=== PATIENT | female | born 1955 | race Caucasian/White ===

== ENCOUNTER 2017-06-22 08:28 | Emergency (ER) | payer OTHER, MEDICAID, SELFPAY | END 2017-06-22 10:15 | disposition home or self-care (01) | PROVIDERS: Emergency Provider Emergency Medicine; PCP Family Medicine; Visit Provider Emergency Medicine | DX: M25.512 Pain in left shoulder (principal) | CPT/HCPCS: 73030; 99283 ==

== ENCOUNTER → 2017-08-08 12:22 | Outpatient (CLI) | payer OTHER, MEDICAID, SELFPAY ==
--- NOTE | 2017-08-08 | DI.RAD.S_ITS ---
PROCEDURE: XR KNEE LT 3V INDICATIONS: 62 year-old female with bilateral knee weakness and pain after fall. TECHNIQUE: 3 views of the knee were acquired. COMPARISON: [facility], CR, XR KNEE ARTHRITIC SERIES LT, 07/30/2017, 15:10. FINDINGS: Bones: No fractures or dislocations. There is mild tricompartmental knee joint degeneration, with peripheral osteophyte formation. There is nonaggressive periosteal reaction along the distal femoral shaft. No suspicious bony lesions. Soft tissues: No joint effusion. No suspicious soft tissue calcifications. IMPRESSION: 1. Mild left knee joint degeneration. 2. Patchy distal femoral shaft periosteal reaction may reflect sequelae of remote trauma. Hypertrophic osteoarthropathy may also be in the differential diagnosis. Dictated by: Christian Moody M.D. on 08/08/2017 at 13:02 Approved by: Christian Moody M.D. on 08/08/2017 at 13:04
--- NOTE | 2017-08-08 | DI.RAD.S_ITS ---
PROCEDURE: XR KNEE RT 3V INDICATIONS: 62 year-old female with right knee pain. TECHNIQUE: 3 views of the knee were acquired. COMPARISON: [facility], , KNEE 3V RIGHT, 03/12/2014, 17:26. [facility], , KNEE 3V RIGHT, 08/15/2010, 15:30. FINDINGS: Bones: No fractures or dislocations. There is tricompartmental knee joint degeneration. No suspicious bony lesions. Soft tissues: No joint effusion. No suspicious soft tissue calcifications. IMPRESSION: Mild right knee joint degeneration, without acute bony injuries. Dictated by: Christian Moody M.D. on 08/08/2017 at 13:01 Approved by: Christian Moody M.D. on 08/08/2017 at 13:02
== END ==
PROVIDERS: PCP Family Medicine; Visit Provider Family Medicine
DX: M17.0 Bilateral primary osteoarthritis of knee (principal)
CPT/HCPCS: 73562

== ENCOUNTER → 2017-12-16 08:33 | Outpatient (CLI) | payer OTHER, MEDICAID, SELFPAY ==
--- NOTE | 2017-12-16 08:34 | DI.US.S_ITS ---
PROCEDURE: US PELVIC COMPLETE INDICATIONS: POST MENOPAUSAL BLEEDING TECHNIQUE: Real-time scanning was performed of the pelvic organs, with image documentation. Additional endovaginal scanning was necessary due to incomplete visualization of the adnexal and endometrial structures by transabdominal scanning. COMPARISON: None. FINDINGS: Transabdominal scanning: Limited scanning through the kidneys shows no hydronephrosis. No pathologic free abdominal or pelvic fluid. Endovaginal scanning: Uterus: Uterus is normal in size at 8.0 x 4.2 x 5.7 cm. The endometrium measures 10 mm in combined thickness. Multicystic change and endometrial complex noted. Ovaries: Ovaries not visualized. No adnexal masses seen. IMPRESSION: Abnormal appearance of the endometrial complex which is thickened and multicystic. Endometrial carcinoma cannot be excluded and endometrial biopsy is recommended. Dictated by: Jaren LANE Interpreted: Madeline Coronado MD on 12/16/2017 at 12:01 Approved by: Madeline Coronado MD, PhD on 12/16/2017 at 12:04
== END ==
PROVIDERS: PCP Family Medicine; Visit Provider Obstetrics & Gynecology
DX: N95.0 Postmenopausal bleeding (principal); R93.89 Abnormal findings on diagnostic imaging of other specified body structures
CPT/HCPCS: 76830; 76856

== ENCOUNTER 2018-01-20 08:33 | Day surgery (SDC) | payer OTHER, MEDICAID, SELFPAY ==
[2018-01-13 08:21] VITALS: BMI 20.5
--- NOTE | 2018-01-20 | PATH_ITS ---
[facility] Accession Number: [id number] . 01 Material submitted: . ENDOMETRIAL CURETTINGS . 02 Diagnosis: Endometrium, Biopsy: Disordered proliferative endometrium with features suggestive of glandular and stromal breakdown. No evidence of neoplasia or hyperplasia. L/01/21/2018 . 02 Electronically signed: . Corrina Rodrigues MD, Pathologist NPI- [id number] . 01 Gross description: . Received in one formalin-filled container labeled with the patient's name and labeled endometrial curettings, is approximately a 0.75 cc aggregate of tissue, mucoid material, and blood, which is filtered, wrapped, and entirely submitted in one cassette. ([id number]) /FRR . 02 Pathologist provided ICD-10: N92.6 . 02 CPT . 934987 Performed at: 01 [facility] [address] [facility]– [place], [place], [place] [id number] MD Erick Schofield MD Phone: [phone] Performed at: [facility] [address] [place], [place] [id number] MD Corrina Rodrigues MD Phone: [phone]
[2018-01-20 08:57] VITALS: BP 157/89; PULSE 103; RESP 17; TEMP 36.8; O2SAT 97; BMI 20.5
[2018-01-20] MEDS: LACTATED RINGERS 1,000 ML 100 ML IV (09:15)
--- NOTE | 2018-01-20 10:12 | PM.PREOP ---
Pre-operative Note Interval Note Pre-op Check: Yes History & Physical exam performed today by Physician Changes: No
--- NOTE | 2018-01-20 10:13 | PM.HP.1 ---
History of Present Illness Date Patient Seen: 01/20/18 Time Patient Seen: 10:13 Chief complaint: D&C hysteroscopy [id number] Narrative: Patient is a 62-year-old 4 para 1 who presents for a D&C hysteroscopy due to postmenopausal bleeding and cervical stenosis Attempted endometrial biopsy in the office x2 but was unsuccessful Patient History Medical History ADHD (Acute) Asthma (Acute) Bipolar 1 disorder (Acute) Cervical stenosis (uterine cervix) (Acute) DJD (degenerative joint disease) (Acute) GERD (gastroesophageal reflux disease) (Acute) Hip dysplasia (Acute) History of endometrial biopsy (Acute) Postmenopausal bleeding (Acute) Surgery, elective (Acute) Surgical History Hx of repair of left rotator cuff (Acute) Family & Social History Social History: household members family Tobacco & Substance use: Smoking Status Never smoker alcohol intake current Substance Use Type does not use Meds Home Medications Medication Instructions Recorded Confirmed Type albuterol sulfate 3 ml INH Q6HP #0 08/15/10 01/20/18 History dextroamphetamine-amphetamine 20 mg PO BID #0 08/15/10 01/20/18 History [Adderall] lamotrigine [Lamictal] 200 mg PO QDAY #0 08/15/10 01/20/18 History lansoprazole [Prevacid 24Hr] 15 mg PO DIRECTED #0 08/15/10 01/20/18 History zolpidem [Ambien] 10 mg PO HS #0 05/19/11 01/20/18 History hydrocodone-acetaminophen [[place]] 1 tab PO Q6HP PRN #10 tab 06/22/17 01/20/18 Rx ibuprofen 200 mg PO Q6HP PRN #0 06/22/17 01/20/18 History Allergies Allergy/AdvReac Type Severity Reaction Status Date / Time No Known Drug Allergies Allergy Verified 12/20/17 09:57 Exam Vital Signs (past 8 hours): - 01/20/18 08:57 Temperature 98.2 F Pulse Rate 103 H Respiratory Rate 17 Blood Pressure 157/89 H Pulse Oximetry 97 Oxygen Delivery Method Room Air Narrative Exam Narrative: HEENT: No thyromegaly, no anterior cervical or supraclavicular lymphadenopathy. Lungs:Clear to auscultation bilaterally, no wheezes. Cardiovascular: Regular rate and rhythm, no murmurs, rubs, or gallops. Abdomen: No scars. No hepatosplenomegaly. No masses palpable. External genitalia: Normal Vagina: Normal Cervix: Normal Bimanual exam: 6 Week size uterus. Mobile. Rectal: No masses. Assessment & Plan (1) History of postmenopausal bleeding: Current visit: Yes Status: Acute (2) Cervical stenosis (uterine cervix): Current visit: Yes Status: Acute Plan: Assessment/Plan Narrative: Assessment: 62-year-old 4 para 1 with postmenopausal bleeding and cervical stenosis Plan: D&C hysteroscopy The risks, benefits, and alternatives to the procedure were explained to the patient. The risks including bleeding, infection, and uterine perforation. She understands these risks and agrees to proceed. Consent form was signed.
--- NOTE | 2018-01-20 10:18 | P.HP_ITS ---
History of Present Illness Date Patient Seen: 01/20/18 Time Patient Seen: 10:13 Chief complaint: D&C hysteroscopy [id number] Narrative: Patient is a 62-year-old 4 para 1 who presents for a D&C hysteroscopy due to postmenopausal bleeding and cervical stenosis Attempted endometrial biopsy in the office x2 but was unsuccessful Patient History Medical History ADHD (Acute) Asthma (Acute) Bipolar 1 disorder (Acute) Cervical stenosis (uterine cervix) (Acute) DJD (degenerative joint disease) (Acute) GERD (gastroesophageal reflux disease) (Acute) Hip dysplasia (Acute) History of endometrial biopsy (Acute) Postmenopausal bleeding (Acute) Surgery, elective (Acute) Surgical History Hx of repair of left rotator cuff (Acute) Family & Social History Social History: household members family Tobacco & Substance use: Smoking Status Never smoker alcohol intake current Substance Use Type does not use Meds Home Medications Medication Instructions Recorded Confirmed Type albuterol sulfate 3 ml INH Q6HP #0 08/15/10 01/20/18 History dextroamphetamine-amphetamine 20 mg PO BID #0 08/15/10 01/20/18 History [Adderall] lamotrigine [Lamictal] 200 mg PO QDAY #0 08/15/10 01/20/18 History lansoprazole [Prevacid 24Hr] 15 mg PO DIRECTED #0 08/15/10 01/20/18 History zolpidem [Ambien] 10 mg PO HS #0 05/19/11 01/20/18 History hydrocodone-acetaminophen [[place]] 1 tab PO Q6HP PRN #10 tab 06/22/17 01/20/18 Rx ibuprofen 200 mg PO Q6HP PRN #0 06/22/17 01/20/18 History Allergies Allergy/AdvReac Type Severity Reaction Status Date / Time No Known Drug Allergies Allergy Verified 12/20/17 09:57 Exam Vital Signs (past 8 hours): - 01/20/18 08:57 Temperature 98.2 F Pulse Rate 103 H Respiratory Rate 17 Blood Pressure 157/89 H Pulse Oximetry 97 Oxygen Delivery Method Room Air Narrative Exam Narrative: HEENT: No thyromegaly, no anterior cervical or supraclavicular lymphadenopathy. Lungs:Clear to auscultation bilaterally, no wheezes. Cardiovascular: Regular rate and rhythm, no murmurs, rubs, or gallops. Abdomen: No scars. No hepatosplenomegaly. No masses palpable. External genitalia: Normal Vagina: Normal Cervix: Normal Bimanual exam: 6 Week size uterus. Mobile. Rectal: No masses. Assessment & Plan (1) History of postmenopausal bleeding: Current visit: Yes Status: Acute (2) Cervical stenosis (uterine cervix): Current visit: Yes Status: Acute Plan: Assessment/Plan Narrative: Assessment: 62-year-old 4 para 1 with postmenopausal bleeding and cervical stenosis Plan: D&C hysteroscopy The risks, benefits, and alternatives to the procedure were explained to the patient. The risks including bleeding, infection, and uterine perforation. She understands these risks and agrees to proceed. Consent form was signed.
[2018-01-20 10:50] VITALS: BP 120/70; PULSE 83; RESP 17; TEMP 36.6; O2SAT 97
[2018-01-20 10:55] VITALS: BP 130/73; PULSE 85; RESP 17; O2SAT 98
--- NOTE | 2018-01-20 10:56 | SUR.OPER ---
Lithotomy on padded OR bed, head on pillow, arms secured on padded arm boards at <90 degrees abduction. Legs secured in padded yellow fins stirrups.
[2018-01-20 11:00] VITALS: BP 142/71; PULSE 89; RESP 17; O2SAT 99
[2018-01-20 11:15] VITALS: BP 145/66; PULSE 78; RESP 99
[2018-01-20] MEDS: HYDROCODONE/ACET 5/325 TABLET 1 TAB PO (11:15)
[2018-01-20 11:30] VITALS: BP 133/80; PULSE 77; RESP 16; TEMP 36.6; O2SAT 97
--- NOTE | 2018-01-21 12:03 | PM.GYNOP.1 ---
Operative Date/Time/Diagnoses Date of procedure: 01/20/18 Time of procedure: 11:45 Pre-op diagnosis: Postmenopausal bleeding Cervical stenosis Post-op diagnosis: same Procedure: Procedures Operation Date: 01/20/18 09:45 Actual Procedures Side Surgeon p Hysteroscopy D&C Elizabeth Rosas MD Indications: Postmenopausal bleeding Cervical stenosis Surgeon: Elizabeth Rosas Anesthesia Type: General (LMA) Operative Notes Findings: 6 week size anteverted uterus Cervical stenosis Thickened posterior endometrial lining Closure Type: not applicable Specimen(s): endometrial curettings Applied: catheter (In and out) Estimated blood loss (mL): 3 Blood products transfused: none Procedure in detail: After informed consent was obtained, the patient was taken to the operating room where she was placed in the dorsal supine position. After adequate LMA general anesthesia was achieved, she was placed in the dorsal lithotomy position, and prepped and draped in the usual sterile fashion. A time-out was performed. A bivalve speculum was placed into the vagina and the anterior lip of the cervix grasped with a single-tooth tenaculum. There was cervical stenosis. Using the small gold handled dilators, the cervix was dilated up to the # 9 Hegar dilator. The hysteroscope passed easily into the endometrial cavity. Both fallopian tube ostia were observed. There was a small false tract but the endometrial canal was easily found. There was thickened posterior lining. The hysteroscope was removed. Sharp curettage was performed yielding a large amount of endometrial curettings. The instruments were removed from the uterus. The single-tooth tenaculum was removed from the anterior lip of the cervix. The bivalve speculum was removed from the vagina. There was minimal bleeding from the cervical os. Sponge, lap, and instrument counts were correct x2. The patient tolerated the procedure well, and was taken to PACU in stable condition. Complications: none Post-operative Condition: stable Disposition: PACU Plan for aftercare: Home after recovery
== END 2018-01-20 11:36 | disposition home or self-care (01) ==
PROVIDERS: PCP Family Medicine; Visit Provider Obstetrics & Gynecology
PROC: 0UDB8ZZ Extraction of Endometrium, Via Natural or Artificial Opening Endoscopic (ICD-10-PCS; CPT 58558; principal; 2018-01-20 09:45)
DX: N95.0 Postmenopausal bleeding (principal); N88.2 Stricture and stenosis of cervix uteri; J45.909 Unspecified asthma, uncomplicated
CPT/HCPCS: 58558; J1100; J2704

== ENCOUNTER 2018-05-05 06:37 | Day surgery (SDC) | payer OTHER, MEDICAID, SELFPAY ==
[2018-05-02 12:13] VITALS: BMI 20.2
[2018-05-05] VITALS (20 sets, daily range): BP systolic 103–146; BP diastolic 60–91; PULSE 57–93; RESP 6–20; TEMP 36.7–37.4; O2SAT 93–100; BMI 19.2
--- NOTE | 2018-05-05 | PATH_ITS ---
[facility] Accession Number: [id number] . 01 Material submitted: . UTERUS AND BILATERAL FALLOPIAN TUBES/OVARIES . 02 Diagnosis: Uterus With Bilateral Fallopian Tubes And Ovaries, Supracervical Hysterectomy And Bilateral Salpingo-oophorectomy: Weakly proliferative endometrium with no diagnostic abnormality. Adenomyosis. Bilateral ovaries with no diagnostic abnormality. Bilateral fallopian tubes with simple benign paratubal cysts. Negative for malignancy. MRV/05/07/2018 . 02 Electronically signed: . Porfirio Gillis MD, PhD, Pathologist NPI- [id number] . 01 Gross description: . Received in formalin, labeled uterus, bilateral fallopian tubes + ovaries, is a morcellated uterus (88 grams, 14.3 x 9.2 x 2.7 cm in aggregate) and two ovaries (ovary #1- 1.3 x 0.8 x 0.5 cm; ovary #2- 1.8 x 0.8 x 0.6 cm) with attached fimbriated fallopian tubes (tube #1: length-6.3 cm, diameter-0.3 cm; tube #2: length-6.5 cm, diameter-0.4 cm). The cervix is absent. The specimen cannot be oriented, and the endometrium and myometrium cannot be grossly measured. The uterine parenchyma is romano with a pale whorled appearance. The serosa is pale romano smooth and shiny. The ovaries have romano-yellow dull flat serosa and romano-white parenchyma with corpus albicans identified. The fallopian tubes contain a filshie clip and have romano smooth and shiny serosa with multiple paratubal cysts (0.1 cm-0.9 cm) containing clear colorless fluid. The lumens are romano and unremarkable. Section code: (A1-A4) uterine parenchyma, residential sales representative; (A5) ovary #1, residential sales representative serial section; (A6) ovary #2, residential sales representative serial section; (A7) fallopian tube #1, residential sales representative serial section; (A8) fimbria #1, bivalved, entirely submitted; (A9) fallopian tube #2, residential sales representative serial section; (A10) fimbria #2, bivalved, entirely submitted. ([id number]) /AMH . 02 Pathologist provided ICD-10: N95.0, N80.0 . 02 CPT . 289210 Performed at: 01 [facility] [address] [facility], [place], [place] [id number] MD Erick Schofield MD Phone: [phone] Performed at: [facility] [address] [place], [place] [id number] MD Corrina Rodrigues MD Phone: [phone]
[2018-05-05] MEDS: LACTATED RINGERS 1,000 ML 100 ML IV ×4 (07:11→20:37)
[2018-05-05] MEDS: CEFAZOLIN 2 GM/100 ML FROZ.PIGGY IV (07:55)
--- NOTE | 2018-05-05 08:41 | SUR.OPER ---
Lithotomy on padded OR bed. Mize Pad Positioner under torso. Head on pillow, arms padded and tucked at sides. Legs secured in padded yellow fins stirrups.
[2018-05-05] MEDS: BUPIVACAINE 0.5% W/ EPI (PF) VIAL 30 ML INJ (08:49)
[2018-05-05] MEDS: ROPIVACAINE 0.2% PF 2 MG/ML 10ML AMP 20 ML INJ (08:49)
[2018-05-05] MEDS: ACETAMINOPHEN IV 1,000 MG/100 ML VIAL 400 MG IV (09:00)
--- NOTE | 2018-05-05 10:08 | PC.NURSE ---
Day shift: Pt not on AC unit at this time.
--- NOTE | 2018-05-05 10:15 | PM.PREOP ---
Pre-operative Note Interval Note History & Physical reviewed/Exam performed by Physician: Yes Changes to H&P: No
[2018-05-05] MEDS: fentaNYL 100 MCG/2 ML INJ 25 MCG IV (10:20)
--- NOTE | 2018-05-05 10:21 | P.OP_ITS ---
Operative Date/Time/Diagnoses Date of procedure: 05/05/18 Time of procedure: 10:21 Pre-op diagnosis: Postmenopausal bleeding Thickened endometrial lining on ultrasound Cervical stenosis Family history of endometrial cancer Post-op diagnosis: same Procedure: Procedures Operation Date: 05/05/18 07:45 Actual Procedures Side Surgeon p Laparoscopic Supracervical Hysterectomy w/Bilat S&O Elizabeth Rosas MD Indications: Postmenopausal bleeding Thickened endometrial lining on ultrasound Cervical stenosis Family history of endometrial cancer Surgeon: Elizabeth Rosas Supervisor [employer] Processing: Jonas Samayoa Anesthesia Type: General Operative Notes Findings: 10 week size uterus Normal tubes and ovaries Accessory lobe of the liver Omental to left anterior abdominal wall adhesions Closure Type: primary Specimen(s): left tube & ovary, right tube & ovary and uterus Applied: catheter (Removed at the end of the case) Estimated blood loss (mL): 100 Blood products transfused: none Procedure in detail: The patient was taken to the operating room where she was placed in the dorsal supine position. After adequate general endotracheal anesthesia was achieved, she was placed in the dorsal lithotomy position, and prepped and draped in the usual sterile fashion. A timeout was performed. A bivalve speculum was placed into the vagina and the anterior lip of the cervix grasped with a single-tooth tenaculum. The cervical os was sequentially dilated until the ZUMI uterine manipulator could pass easily into the endometrial cavity. The single-tooth tenaculum was removed from the anterior lip of the cervix, and the bivalve speculum was removed from the vagina. Attention was then turned to the abdomen where 6 mL of half percent Marcaine with epinephrine were injected in the umbilical fold. A 5 mm incision was made. The Verhees needle was placed into the peritoneal cavity, and its placement confirmed by aspiration and drop test. The Verhees needle was removed. A 5 mm trocar was placed without difficulty. 2 other incisions were made midway between the pubic symphysis and umbilicus after 5 mL of half percent Marcaine with epinephrine were injected. These were 5 mm incisions. Two 5 mm trochars were placed under direct visualization. There were some omental adhesions on the left anterior abdominal wall. The right tube and ovary were grasped with an atraumatic grasper. Using the plasma kinetic with settings of 40 W the infundibulopelvic ligament was cauterized and cut. The cornua of the uterus was then grasped with an atraumatic grasper. The utero-ovarian ligaments were cauterized and cut. The round ligament and broad ligament was cauterized and cut with plasma kinetic. Hemostasis was achieved. The bladder flap was created using the plasma kinetic with cautery and cut senior care across. The uterine arteries on the right side were extensively cauterized with plasma kinetic. All of this was repeated on the left side. The remainder of the bladder flap was created using the plasma kinetic, and the bladder taken down off the lower uterine segment and cervix. Using the Endoloop, the cervix was amputated from the uterus 2 cm above the uterosacral ligaments, after the ZUMI uterine manipulator was removed from the uterus. There was a small amount of bleeding noted from the posterior edge of the cervix, and this was cauterized for hemostasis. The endocervical canal was extensively cauterized. A sponge stick was placed into the vagina. 6 mL of half percent Marcaine with epinephrine were injected above the pubic symphysis. A 12 mm trocar was placed. And then removed. The fascial incision was extended bluntly with a Tiffany. An Endobag was placed through the suprapubic incision and the uterus and tubes and ovaries were placed into the Endobag. The Oleksandr was placed into the endobag. The uterus, tubes, and ovaries were hand morcellated in approximately 10 pieces. The Endobag and Oleksandr were removed from the peritoneal cavity. The pelvis was copiously irrigated with warm normal saline. No bleeding was noted. The instruments were removed from the abdomen. The CO2 was allowed to escape. The suprapubic incision was closed on the fascia with 0 Vicryl. The suprapubic subcutaneous layer was closed with 2 simple interrupted sutures with 3 0 Vicryl. All of the incisions were closed with 4-0 undyed Vicryl in a subcuticular fashion. Steri-Strips, 2 x 2, and op site were placed. The moistened sponge stick was removed from the vagina. Sponge, lap, and instrument counts were correct x-2. The patient tolerated the procedure well, was taken to PACU in stable condition. Complications: none Post-operative Condition: stable Disposition: PACU Plan for aftercare: To PACU and then home after recovery
--- NOTE | 2018-05-05 10:22 | SUR.PHASEI ---
Rx for surgical pain, moaning, ice chips given/denies nausea
[2018-05-05] MEDS: fentaNYL 100 MCG/2 ML INJ 50 MCG IV ×2 (10:26→10:48)
[2018-05-05] MEDS: fentaNYL 100 MCG/2 ML INJ IV (10:33)
[2018-05-05] MEDS: LORazepam 2 MG/ML SYRINGE 0.25 MG IV ×2 (10:45→10:53)
[2018-05-05] MEDS: MEPERIDINE 50 MG/ML 25 MG IV (10:59)
[2018-05-05] MEDS: HYDROMORPHONE 2 MG INJ 0.5 MG IV ×2 (11:12→11:19)
--- NOTE | 2018-05-05 11:21 | SUR.PHASEI ---
IV rx per anesthesia order after talking with Dr. Rosas. She had anesthesia call from the OR w/orders. patient states that she has had minimal response to medication maybe half. continue to give Rx and ice chips. no nausea. continues to moan, eyes closed.
[2018-05-05] MEDS: OXYCODONE/ACETAMINOPHEN 5/325 TABLET 1 TAB PO ×2 (11:33→14:27)
--- NOTE | 2018-05-05 11:35 | SUR.PHASEI ---
states we're getting there when asked about pain. Pudding given prior to PO Rx. States that it was good. States that the pain is changing to a twinge, still at a 7.5 but seems much calmer. Drowsy, moaning occasionally, much less than previously. Skin remains warm and dry.
--- NOTE | 2018-05-05 11:45 | SUR.PHASEI ---
report called to floor. transferred by other [employer] staff. VSS, clothing bag to room with patient. calm, no moaning upon transfer. Drowsy, eyes closed. resp even and regular, skin warm and dry
--- NOTE | 2018-05-05 11:57 | PC.NURSE ---
Day shift: Pt arrived on unit at approx 1200 from PACU. A&Ox3. 4 each lap sites are CDI. Pad in place at jerry area. Pt calm and cooperative with care. Oriented to room and call light. Call light in reach. Agrees to not get OOB w/o help from ernesto.
[2018-05-05] MEDS: KETOROLAC 30 MG/ML VIAL IV (13:31)
--- NOTE | 2018-05-05 14:21 | PC.NURSE ---
Day shift: Left unit at approx 1425. See prior note.
--- NOTE | 2018-05-05 19:54 | PC.NURSE ---
Patience is constantly talent consultant lights asking for things about every 5-10 minutes for the last one hour after asking if she needed anything else.
[2018-05-05] MEDS: ZOLPIDEM 5 MG TABLET 10 MG PO (20:34)
[2018-05-05] MEDS: DOCUSATE 250 MG CAPSULE PO (20:34)
[2018-05-05] MEDS: HYDROMORPHONE PCA (6MG/30ML) 6 MG/30 ML PCA.VIAL IV (21:45)
[2018-05-06] VITALS: BP 101/66; PULSE 79; RESP 16; TEMP 36.6; O2SAT 98
[2018-05-06] MEDS: OXYCODONE/ACETAMINOPHEN 5/325 TABLET 1 TAB PO (04:12)
[2018-05-06] MEDS: ALBUTEROL 2.5 MG/3 ML NEB (ADULT) INH (04:36)
[2018-05-06 04:37] VITALS: O2SAT 97
[2018-05-06 05:10] VITALS: BP 108/73; PULSE 76; RESP 16; TEMP 36.4; O2SAT 99
[2018-05-06 05:52] LABS: Add Manual Diff / Slide Review NO; Basophils Absolute Auto 0 /uL (0-100); Basophils Percent Auto 0.1 % (0-2); Eosinophils Absolute Auto 0 /uL (0-450); Eosinophils Percent Auto 0.2 % (2-4); Hematocrit 34.7 % (36-46); Hemoglobin 11.9 g/dL (12.0-16.0); Lymphocytes Absolute Auto 1100 /uL (1100-4500); Lymphocytes Percent Auto 14.6 % (25-40); Mean Corpuscular HGB Conc 34.2 % (30-36); Mean Corpuscular Hemoglobin 29.4 PG (26-34); Mean Corpuscular Volume 85.8 fL (80-100); Monocytes Absolute Auto 600 /uL (0-900); Monocytes Percent Auto 7.7 % (3-14); Neutrophils Absolute Auto 5600 /uL (1500-7000); Neutrophils Percent Auto 77.4 % (50-75); Platelet Count 229 X10^3/uL (150-400); Red Blood Cell Count 4.04 X10^6/uL (4.0-5.2); White Blood Cell Count 7.3 X10^3/uL (4.5-11.0)
[2018-05-06] MEDS: LACTATED RINGERS 1,000 ML 100 ML IV (06:45)
[2018-05-06] MEDS: lamoTRIgine 100 MG TABLET 200 MG PO (07:11)
[2018-05-06 07:55] VITALS: BP 95/54; PULSE 73; RESP 20; TEMP 36.7; O2SAT 98
[2018-05-06] MEDS: DOCUSATE 250 MG CAPSULE PO (08:58)
[2018-05-06] MEDS: OXYCODONE/ACETAMINOPHEN 5/325 TABLET 2 TAB PO ×2 (09:03→12:57)
[2018-05-06] MEDS: PANTOPRAZOLE 20 MG TABLET PO (09:07)
[2018-05-06] MEDS: IBUPROFEN 600 MG TABLET PO (09:09)
[2018-05-06 11:58] VITALS: BP 93/57; PULSE 72; RESP 18; TEMP 36.3; O2SAT 97
--- NOTE | 2018-05-06 14:02 | PC.NURSE ---
Day shift: Pt left unit at approx 1400 with ADMITTED ATTORNEYS in WC to the pharmacy downstairs first then to private car that Pt's Mother will be driving. Paperwork signed and all questions answered. Pt has all personal belongings.
--- NOTE | 2018-05-12 13:26 | PM.DS.1 ---
History of Present Illness Date Patient Seen: 05/06/18 Time Patient Seen: 13:27 Chief complaint: *[id number] Narrative: Patient is a 63-year-old postop day # 1 status post laparoscopic supracervical hysterectomy and bilateral salpingo-oophorectomy. Patient was initially scheduled to go home yesterday after surgery, but due to nausea and pain issues she remained overnight. Discharge Providers Date of admission: 05/05/2018 Discharge Date: 05/06/18 Primary care physician: Joe Dawn MD Discharge provider: Elizabeth Rosas MD Summary Discharge Diagnosis: Postmenopausal bleeding Postoperative nausea and vomiting Postoperative pain Hospital Course: The patient presented on 05/05/2018 for a scheduled laparoscopic supracervical hysterectomy and bilateral salpingo-oophorectomy. She underwent these procedures without complication. She was initially scheduled to go home on the same day, but due to postoperative nausea, vomiting, and pain issues she remained overnight. On postop day # 1 she was tolerating a diet without nausea or vomiting. She was tolerating oral medication for pain management. She was voiding without the catheter. Status at Discharge Cognitive/behavioral status at discharge: oriented Functional status at discharge: independent ambulation Overall status at discharge: patient is progressing back to baseline Time Spent with Patient Less than 30 minutes Exam Vital Signs (past 8 hours): Oxygen Delivery Method Room Air Oxygen Flow Rate 0 Narrative Exam Narrative: Generally: Patient is sitting up in bed, no acute distress Lungs: Clear to auscultation bilaterally Cardiovascular: Regular rate and rhythm Incisions: Clean dry and intact with op site Abdomen: Soft, flat, good bowel sounds Extremities: Negative Homans, no edema Objective Labs Result Diagrams: 05/06/18 05:22 Discharge Plan Discharge Plan Patient Disposition: Home Discharge comment: Call with fever, chills, redness or drainage around the incisions or bleeding vaginally more than spotty to light Discharge Med Rec/Prescriptions Prescriptions: New oxycodone-acetaminophen [Percocet] 5-325 mg tablet 1 tab PO Q4-6H PRN (Reason: pain) Qty: 30 RF: 0 Continued dextroamphetamine-amphetamine [Adderall] 20 MG tablet 20 mg PO BID Qty: 0 RF: 0 albuterol sulfate 2.5 MG/3 ML solution for nebulization 3 ml INH Q6HP Qty: 0 RF: 0 lansoprazole [Prevacid 24Hr] 15 MG capsule,delayed release(DR/EC) 15 mg PO DIRECTED Qty: 0 RF: 0 lamotrigine [Lamictal] 200 MG tablet 200 mg PO QDAY Qty: 0 RF: 0 zolpidem [Ambien] 10 MG tablet 10 mg PO HS Qty: 0 RF: 0 ibuprofen 200 MG tablet 200 mg PO Q6HP PRN (Reason: pain) Qty: 0 RF: 0 Discontinued hydrocodone-acetaminophen [[place]] 5 MG/325 MG tablet 1 tab PO Q6HP PRN (Reason: pain) RF: 0 Follow up/Referrals: Elizabeth Rosas MD [Physician] - 2 Weeks (*appt:05/20 @ 3:[address] rosas please check in 15min prior to schedule appointment [phone]) Joe Dawn MD [Primary Care Provider] - Discharge Orders: Discharge (Order); Ordered 05/06/18 Ordered By: Elizabeth Rosas Provider Discharge Instructions Diet: Diet as Tolerated Skin/Wound/Dressing Care Report to your healthcare provider any signs of infection, such as:: chills, fever, increased pain, unusual drainage and unusual redness Dressing: Remove outer plastic dressings and guaze tomorrow after a shower Visit Report/Discharge Packet Instructions: DI for Hysterectomy, DI for Laparoscopy, Stool Softeners, Oxycodone/Acetaminophen (By mouth) Discharge Data Primary Care Provider: Joe Dawn Attending Provider: Elizabeth Rosas Discharges patient from system. Discharge Date/Time: 05/06/18 14:04 Quality VTE Deep Vein Thrombosis/Pulmonary Embolism Present on Admission: No
--- NOTE | 2018-05-12 13:30 | P.DS_ITS ---
History of Present Illness Date Patient Seen: 05/06/18 Time Patient Seen: 13:27 Chief complaint: *OPB*[id number] Narrative: Patient is a 63-year-old postop day # 1 status post laparoscopic supracervical hysterectomy and bilateral salpingo-oophorectomy. Patient was initially scheduled to go home yesterday after surgery, but due to nausea and pain issues she remained overnight. Discharge Providers Date of admission: 05/05/2018 Discharge Date: 05/06/18 Primary care physician: Joe Dawn MD Discharge provider: Elizabeth Rosas MD Summary Discharge Diagnosis: Postmenopausal bleeding Postoperative nausea and vomiting Postoperative pain Hospital Course: The patient presented on 05/05/2018 for a scheduled laparoscopic supracervical hysterectomy and bilateral salpingo-oophorectomy. She underwent these procedures without complication. She was initially scheduled to go home on the same day, but due to postoperative nausea, vomiting, and pain issues she remained overnight. On postop day # 1 she was tolerating a diet without nausea or vomiting. She was tolerating oral medication for pain management. She was voiding without the catheter. Status at Discharge Cognitive/behavioral status at discharge: oriented Functional status at discharge: independent ambulation Overall status at discharge: patient is progressing back to baseline Time Spent with Patient Less than 30 minutes Exam Vital Signs (past 8 hours): Oxygen Delivery Method Room Air Oxygen Flow Rate 0 Narrative Exam Narrative: Generally: Patient is sitting up in bed, no acute distress Lungs: Clear to auscultation bilaterally Cardiovascular: Regular rate and rhythm Incisions: Clean dry and intact with op site Abdomen: Soft, flat, good bowel sounds Extremities: Negative Homans, no edema Objective Labs Result Diagrams: 05/06/18 05:22 Discharge Plan Discharge Plan Patient Disposition: Home Discharge comment: Call with fever, chills, redness or drainage around the incisions or bleeding vaginally more than spotty to light Discharge Med Rec/Prescriptions Prescriptions: New oxycodone-acetaminophen [Percocet] 5-325 mg tablet 1 tab PO Q4-6H PRN (Reason: pain) Qty: 30 RF: 0 Continued dextroamphetamine-amphetamine [Adderall] 20 MG tablet 20 mg PO BID Qty: 0 RF: 0 albuterol sulfate 2.5 MG/3 ML solution for nebulization 3 ml INH Q6HP Qty: 0 RF: 0 lansoprazole [Prevacid 24Hr] 15 MG capsule,delayed release(DR/EC) 15 mg PO DIRECTED Qty: 0 RF: 0 lamotrigine [Lamictal] 200 MG tablet 200 mg PO QDAY Qty: 0 RF: 0 zolpidem [Ambien] 10 MG tablet 10 mg PO HS Qty: 0 RF: 0 ibuprofen 200 MG tablet 200 mg PO Q6HP PRN (Reason: pain) Qty: 0 RF: 0 Discontinued hydrocodone-acetaminophen [[place]] 5 MG/325 MG tablet 1 tab PO Q6HP PRN (Reason: pain) RF: 0 Follow up/Referrals: Elizabeth Rosas MD [Physician] - 2 Weeks (*appt:05/20 @ 3:[address] orsas please check in 15min prior to schedule appointment [phone]) Joe Dawn MD [Primary Care Provider] - Discharge Orders: Discharge (Order); Ordered 05/06/18 Ordered By: Elizabeth Rosas Provider Discharge Instructions Diet: Diet as Tolerated Skin/Wound/Dressing Care Report to your healthcare provider any signs of infection, such as:: chills, fever, increased pain, unusual drainage and unusual redness Dressing: Remove outer plastic dressings and guaze tomorrow after a shower Visit Report/Discharge Packet Instructions: DI for Hysterectomy, DI for Laparoscopy, Stool Softeners, Oxycodone/Acetaminophen (By mouth) Discharge Data Primary Care Provider: Joe Dawn Attending Provider: Elizabeth Rosas Discharges patient from system. Discharge Date/Time: 05/06/18 14:04 Quality VTE Deep Vein Thrombosis/Pulmonary Embolism Present on Admission: No
== END 2018-05-06 14:04 | disposition home or self-care (01) ==
LOC: OR 06:39 → AC 06:40
PROVIDERS: PCP Family Medicine; Visit Provider Obstetrics & Gynecology
PROC: 0UT94ZL Resection of Uterus, Supracervical, Percutaneous Endoscopic Approach (ICD-10-PCS; CPT 58542; principal; 2018-05-05 07:45)
DX: N95.0 Postmenopausal bleeding (principal); Z80.49 Family history of malignant neoplasm of other genital organs; J45.909 Unspecified asthma, uncomplicated; N88.2 Stricture and stenosis of cervix uteri; K66.0 Peritoneal adhesions (postprocedural) (postinfection); N80.0 Endometriosis of uterus
CPT/HCPCS: 58542; 36415; 85025; 94640; 94760; 94762; J0131; J0690; J1100; J1170; J1885; J2060; J2175; J2250; J2405; J2704; J2795; J3010; J7613

== ENCOUNTER → 2018-12-12 14:25 | Outpatient (CLI) | payer OTHER, MEDICAID, SELFPAY ==
[2018-05-05 13:16] VITALS: BMI 19.2
--- NOTE | 2018-12-12 | DI.MG.S_ITS ---
BILATERAL DIGITAL SCREENING MAMMOGRAM 3D/2D WITH CAD: 12/12/2018 CLINICAL: Routine screening. Family history of breast cancer. Comparison is made to exams dated: 07/17/2016 mammogram, 01/04/2015 mammogram, 12/10/2013 mammogram, and 12/08/2012 mammogram - [facility]. The tissue of both breasts is heterogeneously dense. This may lower the sensitivity of mammography. Current study was also evaluated with a Computer Aided Detection (CAD) system. There are benign post operative findings and biopsy clip in the left breast. No significant masses, calcifications, or other findings are seen in either breast. There has been no significant interval change. IMPRESSION: There is no mammographic evidence of malignancy. A 1 year screening mammogram is recommended. This exam was interpreted at Station ID: [id number]. NOTE: For mammograms, a report in lay terms will be sent to the patient. Approximately 15% of breast malignancies will not be visualized mammographically. In the management of a palpable breast mass, a negative mammogram must not discourage biopsy of a clinically suspicious lesion. Electronically Signed By: Min stone/maria m:12/12/2018 20:05:58 letter sent: Normal Exam ACR BI-RADS Category 2: Benign Finding(s) 3342F
== END ==
PROVIDERS: PCP Family Medicine; Visit Provider Family Medicine
DX: Z12.31 Encounter for screening mammogram for malignant neoplasm of breast (principal); Z80.3 Family history of malignant neoplasm of breast
CPT/HCPCS: 77063; 77067

== ENCOUNTER → 2020-03-31 10:41 | Outpatient (CLI) | payer OTHER, MEDICAID, SELFPAY ==
[2018-05-05 13:16] VITALS: BMI 19.2
--- NOTE | 2020-03-31 | DI.MG.S_ITS ---
BILATERAL DIGITAL SCREENING MAMMOGRAM 3D/2D WITH CAD: 03/31/2020 CLINICAL: Routine screening. Family history of breast cancer. Comparison is made to exams dated: 12/12/2018 mammogram, 07/17/2016 mammogram, and 01/04/2015 mammogram - [facility]. The tissue of both breasts is heterogeneously dense. This may lower the sensitivity of mammography. Current study was also evaluated with a Computer Aided Detection (CAD) system. There are benign post operative findings and biopsy clip in the left breast. No significant masses, calcifications, or other findings are seen in either breast. There has been no significant interval change. IMPRESSION: BENIGN There is no mammographic evidence of malignancy. A 1 year screening mammogram is recommended. This exam was interpreted at Station ID: [id number]. NOTE: For mammograms, a report in lay terms will be sent to the patient. Approximately 15% of breast malignancies will not be visualized mammographically. In the management of a palpable breast mass, a negative mammogram must not discourage biopsy of a clinically suspicious lesion. Electronically Signed By: Cornelius vo/maria m:03/31/2020 13:07:21 letter sent: Normal Exam ACR BI-RADS Category 2: Benign Finding(s) 3342F
== END ==
PROVIDERS: PCP Nurse Practitioner Family; Referring Provider Nurse Practitioner Family; Visit Provider Nurse Practitioner Family
DX: Z12.31 Encounter for screening mammogram for malignant neoplasm of breast (principal); Z80.3 Family history of malignant neoplasm of breast
CPT/HCPCS: 77063; 77067

== ENCOUNTER → 2020-05-12 09:42 | Outpatient (CLI) | payer MEDICAID, SELFPAY ==
[2020-05-12] MEDS: COVID-19 VACC, Ad26(JANSSEN)/PF 0.5 ML IM (09:53)
== END ==
PROVIDERS: Visit Provider Internal Medicine
DX: Z23 Encounter for immunization (principal)
CPT/HCPCS: 0031A; 91303

== ENCOUNTER 2020-09-17 11:43 | Emergency (ER) | payer OTHER, MEDICAID, SELFPAY ==
[2018-05-05 13:16] VITALS: BMI 19.2
--- NOTE | 2020-09-17 11:48 | DI.RAD.S_ITS ---
PROCEDURE: XR CHEST 1V INDICATIONS: Shortness of breath TECHNIQUE: One view of the chest was acquired. COMPARISON: None. FINDINGS: Surgical changes and devices: None. Lungs and pleura: Lungs are clear. No pleural effusions or pneumothorax. Mediastinum: Mediastinal contours appear normal. Heart size is normal. Bones and chest wall: No suspicious bony lesions. Overlying soft tissues appear unremarkable. IMPRESSION: No acute cardiopulmonary findings Dictated by: Niranjan Le M.D. on 09/17/2020 at 12:01 Approved by: Niranjan Le M.D. on 09/17/2020 at 12:02
[2020-09-17 11:51] VITALS: BP 187/109; PULSE 90; PULSE 95; RESP 15; RESP 22; TEMP 36.8; O2SAT 100
[2020-09-17 12:00] VITALS: PULSE 94; RESP 19; O2SAT 99
--- NOTE | 2020-09-17 12:04 | ED.CHESTPAIN ---
HPI - Chest Pain General Chief Complaint: Chest Pain Stated Complaint: Chest Pressure, Shakes Time Seen by Provider: 09/17/20 11:47 Source: patient Mode of arrival: EMS Limitations: no limitations History of Present Illness HPI narrative: 65-year-old female who is brought in by EMS for evaluation of some chest pressure and shortness of breath this morning. She states that last evening she had an episode where she states that she felt like she was having a seizure. She states she knows that it was not a seizure. She states that it felt like someone threw her to the ground and then had a hold of her shoulders and was shaking her. It lasted approximately 10 seconds and then resolved. She then had a 2nd episode very similar to this 1 a few minutes later. She states since that time she has been very scared that this was going to reoccur. This morning she was lying in bed and had some chest tightness and left-sided chest discomfort that is worse with palpation. She called EMS this morning. They brought her into the emergency department for evaluation. Related Data Home Medications Medication Instructions Recorded Confirmed albuterol sulfate 3 ml INH Q6HP #0 08/15/10 01/27/20 dextroamphetamine-amphetamine 20 20 mg PO BID #0 08/15/10 01/27/20 mg tablet (Adderall) lamotrigine 200 mg tablet 200 mg PO QDAY #0 08/15/10 01/27/20 (Lamictal) lansoprazole 15 mg capsule,delayed 15 mg PO DIRECTED #0 08/15/10 01/27/20 release (Prevacid 24Hr) zolpidem 10 mg tablet (Ambien) 10 mg PO HS #0 05/19/11 01/27/20 ibuprofen 200 mg tablet 200 mg PO Q6HP PRN #0 06/22/17 01/27/20 estradiol 1 mg tablet 1 mg PO DAILY 05/11/19 01/27/20 Previous Rx's Medication Instructions Recorded estradiol 10 mcg vaginal tablet 10 mcg VAGINAL 2XW #8 tab 01/27/20 (Yuvafem) lorazepam 0.5 mg tablet (Ativan) 0.5 mg PO BID PRN #5 tab 09/17/20 Allergies Allergy/AdvReac Type Severity Reaction Status Date / Time No Known Drug Allergies Allergy Verified 01/27/20 14:59 Review of Systems Constitutional Constitutional: Denies headache(s) ENT Ears, Nose, Mouth, and Throat: Denies headache(s) Cardiovascular Cardiovascular: Reports as per HPI Respiratory Respiratory: Reports as per HPI Gastrointestinal Comments: No abdominal pain Musculoskeletal Musculoskeletal: Reports as per HPI Integumentary/Breasts Comments: No rashes Neurologic Neurologic: Denies headache(s) Psychiatric Psychiatric: Reports anxiety Endocrine Endocrine: Reports system reviewed and no additional complaints, except as documented Hematologic/Lymphatic On Anticoagulants: No Allergic/Immunologic Allergic/Immunologic: Reports system reviewed and no additional complaints, except as documented Patient History Medical History ADHD Asthma Atrophic vaginitis Bipolar 1 disorder Cervical stenosis (uterine cervix) DJD (degenerative joint disease) GERD (gastroesophageal reflux disease) Hip dysplasia History of endometrial biopsy Postmenopausal bleeding Surgery, elective Surgical History (Updated 05/20/18 @ 15:53 by Estrella Finch LPN) History of bilateral salpingo-oophorectomy (BSO) (05/05/18) Hx of dilation and curettage Hx of repair of left rotator cuff S/P laparoscopic supracervical hysterectomy (05/05/18) Social History household members: family Smoking Status: Never smoker alcohol intake: current substance use type: does not use Smoking Status: Never smoker alcohol intake frequency: a few times a week Substance Use Type: does not use Exam Initial Vital Signs Initial Vital Signs: Vital Signs Temperature 98.2 F 09/17/20 11:51 Pulse Rate 90 09/17/20 11:51 Respiratory Rate 22 09/17/20 11:51 Blood Pressure 187/109 H 09/17/20 11:51 Pulse Oximetry 100 09/17/20 11:51 Const General: cooperative and comfortable HENMT Head: normal to inspection and normocephalic Chest Other: Reproducible left-sided discomfort with palpation. Resp Effort & Inspection: normal respiratory effort Auscultation: clear to auscultation bilaterally Cardio Rate: regular rate Rhythm: regular rhythm GI Inspection: normal to inspection Palpation: soft Skin Lesions: no lesions Neuro General: patient alert, patient awake, patient oriented x3 and moves all extremities Extrem General: normal to inspection and capillary refill normal Psych Other: Anxious Scores GCS Carriere coma scale eye opening: Spontaneous Adis coma scale verbal response: Orientated Carriere coma scale motor response: Obey commands Adis coma scale total score: 15 Course Orders Ordered: ED Orders 09/17/20 11:48 XR chest 1V Stat EKG-12 Lead Stat 09/17/20 11:58 Complete Blood Count AUTO DIFF Stat Comprehensive Metabolic Panel Stat Lipase Stat Magnesium Stat Troponin & CK Cardiac Panel Stat 09/17/20 12:14 COVID19 -Nasal swab/Pre-Proc Stat Discontinued Medications Lorazepam (Lorazepam 2 Mg/Ml Inj) 1 mg IV NOW ONE Stop: 09/17/20 12:06 Last Admin: 09/17/20 12:20 Dose: 1 mg Documented by: MADDISON Vital Signs Vital signs: Vital Signs - 8 hr 09/17/20 11:51 09/17/20 12:00 09/17/20 12:11 Temperature 98.2 F Pulse Rate 95 H 94 H 87 Respiratory Rate 15 19 44 H Blood Pressure 187/109 H 152/88 H Pulse Oximetry 100 99 100 09/17/20 12:30 Temperature Pulse Rate 79 Respiratory Rate 67 H Blood Pressure 126/75 Pulse Oximetry 98 MDM - Chest Pain Lab Data Attestation: I reviewed the patient's lab results. Result diagrams: 09/17/20 11:58 09/17/20 11:58 Labs: Lab Results 09/17/20 09/17/20 09/17/20 Range/Units 11:58 11:58 11:58 WBC 4.1 L (4.5-11.0) X10^3/uL RBC 5.52 H (4.0-5.2) X10^6/uL Hgb 15.1 (12.0-16.0) g/dL Hct 46.0 (36-46) % MCV 83.3 (80-100) fL MCH 27.3 (26-34) PG MCHC 32.7 (30-36) % RDW 14.5 (11.6-14.8) % Plt Count 229 (150-400) X10^3/uL Neut % (Auto) 56.1 (50-75) % Lymph % (Auto) 30.5 (25-40) % [place] % (Auto) 8.6 (3-14) % Eos % (Auto) 4.2 H (2-4) % Baso % (Auto) 0.6 (0-2) % Neut # (Auto) 2300 (5267-2244) /uL Lymph # (Auto) 1300 (1178-1856) /uL [place] # (Auto) 400 (0-900) /uL Eos # (Auto) 200 (0-450) /uL Baso # (Auto) 0 (0-100) /uL Sodium 140 (137-145) mmol/L Potassium 4.1 (3.4-5.1) mmol/L Chloride 107 (98-107) mmol/L Carbon Dioxide 24 (22-32) mmol/L BUN 16 (7-17) mg/dL Creatinine 0.60 (0.52-1.04) mg/dL Estimated GFR > 60.0 (>60) mL/min BUN/Creatinine Ratio 26.7 H (6-22) Glucose 123 H (80-110) mg/dL Calcium 9.8 (8.4-10.2) mg/dL Magnesium 2.1 (1.6-2.3) mg/dL Total Bilirubin 0.5 (0.2-1.3) mg/dL AST 34 (14-36) IU/L ALT 27 (<35) IU/L Alkaline Phosphatase 93 (38-126) U/L Total Creatine Kinase 54 (30-135) U/L CK-MB (CK-2) TNP CK-MB (CK-2) Rel Index TNP Troponin I < 0.012 (0.01-0.034) ng/mL Total Protein 7.7 (6.3-8.2) g/dL Albumin 4.8 (3.5-5.0) g/dL Globulin 2.9 (1.7-4.1) g/dL Albumin/Globulin Ratio 1.7 (1.0-2.8) Lipase 137 (23-300) U/L SARS-CoV-2 (PCR) (Negative) 09/17/20 Range/Units 12:14 WBC (4.5-11.0) X10^3/uL RBC (4.0-5.2) X10^6/uL Hgb (12.0-16.0) g/dL Hct (36-46) % MCV (80-100) fL MCH (26-34) PG MCHC (30-36) % RDW (11.6-14.8) % Plt Count (150-400) X10^3/uL Neut % (Auto) (50-75) % Lymph % (Auto) (25-40) % [place] % (Auto) (3-14) % Eos % (Auto) (2-4) % Baso % (Auto) (0-2) % Neut # (Auto) (7229-0982) /uL Lymph # (Auto) (4700-3651) /uL [place] # (Auto) (0-900) /uL Eos # (Auto) (0-450) /uL Baso # (Auto) (0-100) /uL Sodium (137-145) mmol/L Potassium (3.4-5.1) mmol/L Chloride (98-107) mmol/L Carbon Dioxide (22-32) mmol/L BUN (7-17) mg/dL Creatinine (0.52-1.04) mg/dL Estimated GFR (>60) mL/min BUN/Creatinine Ratio (6-22) Glucose (80-110) mg/dL Calcium (8.4-10.2) mg/dL Magnesium (1.6-2.3) mg/dL Total Bilirubin (0.2-1.3) mg/dL AST (14-36) IU/L ALT (<35) IU/L Alkaline Phosphatase (38-126) U/L Total Creatine Kinase (30-135) U/L CK-MB (CK-2) CK-MB (CK-2) Rel Index Troponin I (0.01-0.034) ng/mL Total Protein (6.3-8.2) g/dL Albumin (3.5-5.0) g/dL Globulin (1.7-4.1) g/dL Albumin/Globulin Ratio (1.0-2.8) Lipase (23-300) U/L SARS-CoV-2 (PCR) Negative (Negative) ECG Data Attestation: I personally reviewed and interpreted this ECG as follows: Interpretation: Sinus rhythm Ventricular rate 93 Normal axis Normal QRS Normal QTC of sign no ST T wave changes MDM Narrative Medical decision making narrative: Patient was obviously anxious upon arrival. Her left-sided chest pain was clearly reproducible with palpation. Her lab work here in the emergency department is on remarkable. I suspect that the symptoms that brought her in today were anxiety related. Her blood pressure improved to a systolic of the mid 20s after the Ativan. I feel that we can hold on further workup for now. She has an appoint with her primary doctor on Saturday already scheduled. Was sent home with a few pills of Ativan. She was given return precautions and follow-up instructions. She expressed understanding and agreement. Discharge Plan Departure Patient Disposition: Home Clinical Impression: Anxiety Instructions: DI for Anxiety -- Adult Activity Restrictions/Additional Instructions: I do recommend that you continue all of your medications as directed. Keep your scheduled medical appointment on Saturday with your primary doctor. Return to the emergency department for any new or worsening symptoms Prescriptions: New lorazepam [Ativan] 0.5 mg tablet 0.5 mg PO BID PRN (Reason: anxiety) Qty: 5 RF: 0 No Action dextroamphetamine-amphetamine [Adderall] 20 MG tablet 20 mg PO BID Qty: 0 RF: 0 albuterol sulfate 2.5 MG/3 ML solution for nebulization 3 ml INH Q6HP Qty: 0 RF: 0 lansoprazole [Prevacid 24Hr] 15 MG capsule,delayed release(DR/EC) 15 mg PO DIRECTED Qty: 0 RF: 0 lamotrigine [Lamictal] 200 MG tablet 200 mg PO QDAY Qty: 0 RF: 0 zolpidem [Ambien] 10 MG tablet 10 mg PO HS Qty: 0 RF: 0 ibuprofen 200 MG tablet 200 mg PO Q6HP PRN (Reason: pain) Qty: 0 RF: 0 estradiol 1 mg tablet 1 mg PO DAILY RF: 0 estradiol [Yuvafem] 10 mcg tablet 10 mcg vaginal 2XW Qty: 8 RF: 11 Referrals: Vicki Ritchie ARNP [Advanced Staffing Clerk] -
[2020-09-17 12:06] LABS: Add Manual Diff / Slide Review NO; Basophils Absolute Auto 0 /uL (0-100); Basophils Percent Auto 0.6 % (0-2); Eosinophils Absolute Auto 200 /uL (0-450); Eosinophils Percent Auto 4.2 % (2-4); Hemoglobin 15.1 g/dL (12.0-16.0); Lymphocytes Absolute Auto 1300 /uL (1100-4500); Lymphocytes Percent Auto 30.5 % (25-40); Mean Corpuscular HGB Conc 32.7 % (30-36); Mean Corpuscular Hemoglobin 27.3 PG (26-34); Mean Corpuscular Volume 83.3 fL (80-100); Monocytes Absolute Auto 400 /uL (0-900); Monocytes Percent Auto 8.6 % (3-14); Neutrophils Absolute Auto 2300 /uL (1500-7000); Neutrophils Percent Auto 56.1 % (50-75); Platelet Count 229 X10^3/uL (150-400); Red Blood Cell Count 5.52 X10^6/uL (4.0-5.2); Red Cell Distribution Width 14.5 % (11.6-14.8); White Blood Cell Count 4.1 X10^3/uL (4.5-11.0)
[2020-09-17 12:11] VITALS: BP 152/88; PULSE 87; RESP 44; O2SAT 100
[2020-09-17] MEDS: LORazepam 2 MG/ML INJ 1 MG IV (12:20)
[2020-09-17 12:21] LABS: Alanine Aminotransferase 27 IU/L (<35); Albumin 4.8 g/dL (3.5-5.0); Albumin Globulin Ratio 1.7 (1.0-2.8); Alkaline Phosphatase 93 U/L (38-126); Aspartate Aminotransferase 34 IU/L (14-36); BUN Creatinine Ratio 26.7 (6-22); Bilirubin Total 0.5 mg/dL (0.2-1.3); Blood Urea Nitrogen 16 mg/dL (7-17); Calcium 9.8 mg/dL (8.4-10.2); Carbon Dioxide 24 mmol/L (22-32); Chloride 107 mmol/L (98-107); Creatine Kinase 54 U/L (30-135); Estimated Glomerular Filt Rate > 60.0 mL/min (>60); Globulin 2.9 g/dL (1.7-4.1); Glucose 123 mg/dL (80-110); HEMOLYSIS < 15 (0-50); Lipase 137 U/L (23-300); Potassium 4.1 mmol/L (3.4-5.1); Sodium 140 mmol/L (137-145); Total Protein 7.7 g/dL (6.3-8.2)
[2020-09-17 12:22] LABS: Magnesium 2.1 mg/dL (1.6-2.3)
[2020-09-17 12:30] VITALS: BP 126/75; PULSE 79; RESP 67; O2SAT 98
[2020-09-17 12:32] LABS: Troponin I < 0.012 ng/mL (0.01-0.034)
[2020-09-17 12:44] LABS: COVID19 -Nasal RAPID Negative (Negative)
[2020-09-17 13:00] VITALS: BP 123/72; PULSE 86; RESP 20; O2SAT 99
== END 2020-09-17 13:28 | disposition home or self-care (01) ==
PROVIDERS: Emergency Provider Emergency Medicine; PCP Family Medicine
DX: F41.9 Anxiety disorder, unspecified (principal); R07.9 Chest pain, unspecified; R00.2 Palpitations; R06.02 Shortness of breath; Z20.822 Contact with and (suspected) exposure to COVID-19
CPT/HCPCS: 36415; 71045; 80053; 82550; 83690; 83735; 84484; 85025; 87635; 93005; 93010; 96374; 99284; C9803; J2060

== ENCOUNTER → 2020-09-29 10:49 | Outpatient (CLI) | payer OTHER, MEDICAID, SELFPAY ==
[2018-05-05 13:16] VITALS: BMI 19.2
--- NOTE | 2020-09-29 | DI.RAD.S_ITS ---
PROCEDURE: XR CHEST 2V INDICATIONS: Mild persistent asthma, uncomplicated TECHNIQUE: 2 views of the chest were acquired. COMPARISON: [facility], , XR CHEST 1V, 09/17/2020, 11:51. FINDINGS: Surgical changes and devices: None. Lungs and pleura: Lungs are mildly hyperexpanded and clear. No pleural effusions or pneumothorax. Mediastinum: Mediastinal contours are normal. Heart size is normal. Bones and chest wall: No suspicious bony abnormalities. Soft tissues appear unremarkable. IMPRESSION: Mildly hyperexpanded lungs can be seen in the setting of reactive airways disease or COPD. No focal airspace opacity. Dictated by: Cornelius Chauhan M.D. on 09/29/2020 at 11:54 Approved by: Cornelius Chauhan M.D. on 09/29/2020 at 12:00
== END ==
PROVIDERS: PCP Family Medicine; Referring Provider Family Medicine; Visit Provider Family Medicine
DX: J45.30 Mild persistent asthma, uncomplicated (principal)
CPT/HCPCS: 71046

== ENCOUNTER → 2022-03-08 08:01 | Outpatient (CLI) | payer MEDICARE, MEDICAID, SELFPAY ==
[2021-09-06 12:43] VITALS: BMI 19.2
[2022-03-08 09:07] LABS: Add Manual Diff / Slide Review NO; Basophils Absolute Auto 0 /uL (0-100); Basophils Percent Auto 1.1 % (0-2); Eosinophils Absolute Auto 100 /uL (0-450); Eosinophils Percent Auto 4.8 % (2-4); Hematocrit 41.3 % (36-46); Hemoglobin 13.6 g/dL (12.0-16.0); Lymphocytes Absolute Auto 1100 /uL (1100-4500); Lymphocytes Percent Auto 37.8 % (25-40); Mean Corpuscular Hemoglobin 29.1 PG (26-34); Mean Corpuscular Volume 88.1 fL (80-100); Monocytes Absolute Auto 400 /uL (0-900); Monocytes Percent Auto 12.4 % (3-14); Neutrophils Absolute Auto 1300 /uL (1500-7000); Neutrophils Percent Auto 43.9 % (50-75); Platelet Count 258 X10^3/uL (150-400); Red Blood Cell Count 4.69 X10^6/uL (4.0-5.2); Red Cell Distribution Width 13.1 % (11.6-14.8)
[2022-03-08 09:44] LABS: Alanine Aminotransferase 31 IU/L (<35); Albumin 4.3 g/dL (3.5-5.0); Albumin Globulin Ratio 1.5 (1.0-2.8); Alkaline Phosphatase 79 U/L (38-126); Aspartate Aminotransferase 36 IU/L (14-36); BUN Creatinine Ratio 35.7 (6-22); Bilirubin Total 0.9 mg/dL (0.2-1.3); Blood Urea Nitrogen 20 mg/dL (7-17); Calcium 9.4 mg/dL (8.4-10.2); Carbon Dioxide 30 mmol/L (22-32); Chloride 104 mmol/L (98-107); Cholesterol 239 mg/dL (140-199); Estimated Glomerular Filt Rate > 60 mL/min (>60); Globulin 2.9 g/dL (1.7-4.1); Glucose 86 mg/dL (80-110); HEMOLYSIS 25 (0-50); Potassium 4.6 mmol/L (3.4-5.1); Sodium 138 mmol/L (137-145); Total Protein 7.2 g/dL (6.3-8.2); Triglycerides 94 mg/dL (35-150)
[2022-03-08 10:01] LABS: HDL Cholesterol 174 mg/dL (40-60); LDL Cholesterol Calculated 46 mg/dL (<100)
[2022-03-08 10:20] LABS: TSH w/ Reflex to FT4 1.52 uIU/mL (0.47-4.68)
[2022-03-08 11:08] LABS: Creatinine Urine Random 57.8 mg/dL
[2022-03-08 11:16] LABS: Microalbumi Creatinin Ratio Ur 12.1 ug/mg CR (<30); Microalbumin Urine Random 0.7 mg/dL (0-1.6)
== END ==
PROVIDERS: PCP Family Medicine; Referring Provider Family Medicine; Visit Provider Family Medicine
DX: F31.9 Bipolar disorder, unspecified (principal); F32.A Depression, unspecified; F90.9 Attention-deficit hyperactivity disorder, unspecified type; G47.00 Insomnia, unspecified; M81.0 Age-related osteoporosis without current pathological fracture; R73.9 Hyperglycemia, unspecified
CPT/HCPCS: 36415; 80053; 80061; 82043; 82570; 84443; 85025

== ENCOUNTER → 2022-04-20 12:12 | Outpatient (CLI) | payer MEDICARE, MEDICAID, SELFPAY ==
[2021-09-06 12:43] VITALS: BMI 19.2
--- NOTE | 2022-04-20 12:13 | DI.MG.S_ITS ---
BILATERAL DIGITAL SCREENING MAMMOGRAM 3D/2D WITH CAD: 04/20/2022 CLINICAL: Routine screening. Family history of breast cancer. Comparison is made to exams dated: 03/31/2020 mammogram, 12/12/2018 mammogram, and 07/17/2016 mammogram - [facility]. Both breasts are heterogeneously dense, which may obscure small masses (category c / 51-75% glandular tissue). Current study was also evaluated with a Computer Aided Detection (CAD) system. There is a possible asymmetry in the right breast middle depth medial region seen on the craniocaudal view only. There is possible architectural distortion associated with the asymmetry. No other significant masses, calcifications, or other findings are seen in either breast. IMPRESSION: INCOMPLETE: NEEDS ADDITIONAL IMAGING EVALUATION The possible asymmetry in the right breast is indeterminate. Additional views with possible ultrasound are recommended. This exam was interpreted at Station ID: [id number]. NOTE: For mammograms, a report in lay terms will be sent to the patient. Approximately 15% of breast malignancies will not be visualized mammographically. In the management of a palpable breast mass, a negative mammogram must not discourage biopsy of a clinically suspicious lesion. Electronically Signed By: Mari wilcox/:04/20/2022 13:43:37 letter sent: Additional Imaging Needed ACR BI-RADS Category 0: Incomplete 3340F
== END ==
PROVIDERS: PCP Family Medicine; Referring Provider Family Medicine; Visit Provider Family Medicine
DX: Z12.31 Encounter for screening mammogram for malignant neoplasm of breast (principal); M05.9 Rheumatoid arthritis with rheumatoid factor, unspecified; Z80.3 Family history of malignant neoplasm of breast; Z78.0 Asymptomatic menopausal state; Z13.820 Encounter for screening for osteoporosis; D72.829 Elevated white blood cell count, unspecified
CPT/HCPCS: 77063; 77067; 77080; 77081

== ENCOUNTER → 2022-06-11 08:44 | Outpatient (CLI) | payer MEDICARE, MEDICAID, SELFPAY ==
[2021-09-06 12:43] VITALS: BMI 19.2
--- NOTE | 2022-06-11 | DI.US.S_ITS ---
LIMITED ULTRASOUND OF RIGHT BREAST: 06/11/2022 CLINICAL: Additional evaluation requested from prior study. Comparison is made to exams dated: 06/11/2022 mammogram, 04/20/2022 mammogram, 03/31/2020 mammogram, 12/12/2018 mammogram, 07/17/2016 mammogram, and 01/04/2015 mammogram - [facility]. Color flow and real-time ultrasound of the right breast 1-3 o'clock region were performed. Pñealoza scale images of the real-time examination were reviewed. There is a 0.8 cm x 0.7 cm x 0.5 cm oval cyst in the right breast at 2 o'clock middle depth 4 cm from the nipple. This oval cyst is hypoechoic with a well-defined boundary and posterior acoustic enhancement. This possibly correlates with mammography findings. Color flow imaging demonstrates that there is no vascularity present. IMPRESSION: PROBABLY BENIGN The 0.8 cm oval cyst in the right breast possibly corresponds to the less prominent, nearly resolved mammographic asymmetry, most likely is a complicated cyst and is probably benign. A follow-up right mammogram and an ultrasound in 6 months is recommended to demonstrate stability. Findings and recommendations were conveyed to the patient at time of exam. This exam was interpreted at Station ID: [id number]. Electronically Signed By: Princess hernandez/:06/11/2022 10:15:27 letter sent: Followup Recommended Ultrasound BI-RADS: 3 Probably benign
--- NOTE | 2022-06-11 | DI.MG.S_ITS ---
UNILATERAL RIGHT DIGITAL DIAGNOSTIC MAMMOGRAM 3D/2D WITH ADDITIONAL VIEWS: 06/11/2022 CLINICAL: Additional evaluation requested from prior study. Comparison is made to exams dated: 04/20/2022 mammogram, 03/31/2020 mammogram, and 12/12/2018 mammogram - [facility]. The right breast is heterogeneously dense, which may obscure small masses (category c / 51-75% glandular tissue). The possible 7 mm irregular asymmetry in the right breast middle depth medial region initially seen on the craniocaudal view only is less prominent and not confirmed with additional views. The architectural distortion is not reproduced. No other significant masses or calcifications are seen in the breast. IMPRESSION: INCOMPLETE: NEEDS ADDITIONAL IMAGING EVALUATION The possible 7 mm irregular asymmetry in the right breast is less prominent, possibly resolved. An ultrasound is recommended. This was performed immediately following this exam. Based on the Tyrer Cuzick model (a risk assessment model) the patient's lifetime risk is 16.3% and her 10 year risk is 8.4%. According to the ACR, ACS, and NCCN guidelines, an annual breast MRI exam along with mammogram is recommended if the patient's lifetime risk is 20% or greater. This exam was interpreted at Station ID: [id number]. NOTE: For mammograms, a report in lay terms will be sent to the patient. Approximately 15% of breast malignancies will not be visualized mammographically. In the management of a palpable breast mass, a negative mammogram must not discourage biopsy of a clinically suspicious lesion. Electronically Signed By: Princess hernandez/:06/11/2022 09:12:57 ACR BI-RADS Category 0: Incomplete [id number]
== END ==
PROVIDERS: PCP Family Medicine; Referring Provider Family Medicine; Visit Provider Family Medicine
DX: R92.8 Other abnormal and inconclusive findings on diagnostic imaging of breast (principal); N60.01 Solitary cyst of right breast
CPT/HCPCS: 76642; 77065; G0279

== ENCOUNTER 2022-06-29 08:51 | Day surgery (SDC) | payer MEDICARE, MEDICAID, SELFPAY ==
[2021-09-06 12:43] VITALS: BMI 19.2
--- NOTE | 2022-06-29 | PATH_ITS ---
[facility] Accession Number: [id number] No. of containers..01 Tissue . 01 Material submitted: . colon - CECAL POLYP . 01 Diagnosis: Cecal Polyp, Biopsy: Colonic mucosa with benign lymphoid aggregates. No dysplasia or neoplasia identified. [facility] 07/04/2022 0915 Local . 01 Electronically signed: . Christina Ponce MD, Pathologist NPI- [id number] . 01 Gross description: . CECAL POLYP: Received in formalin are 3 fragment(s) of romano, soft tissue measuring 0.1 x 0.1 x 0.1 cm to 0.2 x 0.2 x 0.2 cm submitted entirely in 1 cassette(s) /RADHA 07/03/2022 194 Local . 01 Pathologist provided ICD-10: K63.89 . 01 CPT . 522103 Specimen Comment: A courtesy copy of this report has been sent to [facility] Performed at: 01 [facility] [address] [place] [address] [address], [place], [place] [id number] MD Erick Schofield MD Phone: [phone]
[2022-06-29 09:15] VITALS: BMI 18.1
[2022-06-29] MEDS: LACTATED RINGERS 1,000 ML 150 ML IV (09:19)
--- NOTE | 2022-06-29 09:29 | P.HP_ITS ---
History of Present Illness History of Present Illness Date Patient Seen: 06/29/22 Time Patient Seen: 09:29 Chief complaint: [facility] Narrative: Ms. Goodman presents today for screening colonoscopy. Last colonoscopy was over 10 years ago at [facility] in [place]. She does not recall any polyps at that time. She has no family history of colon cancer. A no concerning symptoms. She has no further questions or concerns [facility] Medical History (Updated 06/29/22 @ 09:30 by Olivia Howard MD) ADHD (~1962) Asthma Atrophic vaginitis Bipolar 1 disorder (~2000) Carpal tunnel syndrome Cervical stenosis (uterine cervix) Chicken pox (~1960) Cyst (~2008) Depression (~2000) DJD (degenerative joint disease) GERD (gastroesophageal reflux disease) Hip dysplasia (~1956) History of endometrial biopsy Migraines (~1971) Osteoarthritis (~2007) Osteoporosis (~2007) Ovarian cyst (~2017) Plantar warts (~2017) Postmenopausal bleeding Surgical History Anesthesia History of appendectomy (~1977) History of arthroscopic knee surgery (~2003) History of bilateral salpingo-oophorectomy (BSO) (05/05/18) History of hip replacement (~2018) History of hip surgery (~1958) Hx of dilation and curettage Hx of repair of left rotator cuff S/P laparoscopic supracervical hysterectomy (05/05/18) Surgery, elective Family History Father Dementia Mother Hypertension History of heart disease Grandmother Cancer Grandfather History of heart disease Family/Other Transgender Social History (System 01/20/21 @ 14:06 by Lady Irene Da Silva) household members: family Smoking Status: Never smoker alcohol intake: current substance use type: does not use Meds Home Medications and Allergies Home Medications Medication Instructions Recorded Confirmed Type albuterol sulfate 2.5 mg/3 mL 3 ml INH Q6HP ##0 08/15/10 06/29/22 History (0.083 %) solution for nebulization ibuprofen 200 mg tablet 200 mg PO Q6HP PRN pain ##0 06/22/17 06/29/22 History estradiol 10 mcg vaginal tablet See Rx Instructions .Route 02/06/21 06/29/22 Rx .COMPLEX #24 tabs estradiol 1 mg tablet 1 mg PO DAILY #90 tabs 09/07/21 06/29/22 Rx lamotrigine 200 mg tablet 300 mg PO QDAY #135 tabs 09/07/21 06/29/22 Rx (Lamictal) omeprazole 20 mg capsule,delayed 20 mg PO DAILY #90 caps 01/19/22 06/29/22 Rx release diclofenac sodium 1 % topical gel 4 g topical QID PRN pain (scale 03/20/22 06/29/22 Rx (Arthritis Pain (diclofenac)) score 1-3) #100 grams sumatriptan succinate 100 mg tablet 100 mg PO Q2-4H PRN migraine 03/20/22 06/29/22 Rx headache #14 tabs dextroamphetamine-amphetamine 20 20 mg PO BID #60 tabs 06/07/22 06/29/22 Rx mg tablet (Adderall) Allergies Allergy/AdvReac Type Severity Reaction Status Date / Time No Known Drug Allergies Allergy Verified 06/29/22 08:51 Exam Const General: cooperative, healthy appearing and comfortable Nutritional Appearance: thin Eyes General: appearance normal, both eyes and all related structures Resp Effort & Inspection: normal respiratory effort and able to speak in complete sentences GI Palpation: soft and No tender Extrem General: normal to inspection Assessment & Plan Assessment and plan (1) Colon cancer screening: Status: Acute Plan Presents today for screening colonoscopy I discussed the risks benefits and alternatives including but not limited to perforation of the colon and an incomplete exam she fully understands these risks and would like to proceed.
[2022-06-29 10:20] VITALS: BP 111/66; PULSE 71; RESP 12; TEMP 36.4; O2SAT 99
[2022-06-29 10:24] VITALS: BP 105/62; PULSE 70; RESP 12; O2SAT 99
[2022-06-29 10:29] VITALS: BP 108/63; PULSE 72; RESP 15; O2SAT 99
--- NOTE | 2022-06-29 11:31 | PM.OP.COLON ---
Operative Date/Time/Diagnoses Date of procedure: 06/29/22 Pre-op diagnosis: colon cancer screening. Post-op diagnosis: same Procedure & Clinicians Study performed: Colonoscopy and biopsy Same procedure as scheduled: Yes Indications: Colon cancer screening average risk Surgeon: Olivia Howard Procedure Notes Procedure in detail: Patient was taken to the endoscopy suite and placed in a left lateral decubitus position.? A time-out was performed. Anesthesiologist Donte Luevano induced and maintained conscious sedation throughout the case.?? A digital rectal exam revealed no masses or strictures.??Possible anal fissure versus bleeding external hemorrhoid visualized. No active bleed. The colonoscope was introduced into the anal canal and advanced through to the cecum.? Abdominal pressure was required to reach the cecum. The appendiceal orifice was photographed.? There was a small cecal polyp which was removed with the biopsy forceps. The prep was good [place] bowel prep score of 2.? The remainder of colonic mucosa appeared normal.? There were no major diverticula or internal hemorrhoid piles that appeared abnormal.? The withdrawal time was 14 minutes total. Patient tolerated the procedure well and went in good condition to the postoperative care unit.? Post-procedure Plan for aftercare: Between 7 and 10 years depending on the pathology of the cecal polyp.
== END 2022-06-29 10:47 | disposition home or self-care (01) ==
PROVIDERS: PCP Family Medicine; Referring Provider Surgery; Visit Provider Surgery
PROC: 0DJD8ZZ Inspection of Lower Intestinal Tract, Via Natural or Artificial Opening Endoscopic (ICD-10-PCS; CPT 45378; principal; 2022-06-29 09:45)
DX: Z12.11 Encounter for screening for malignant neoplasm of colon (principal); K63.5 Polyp of colon
CPT/HCPCS: 45380; J2704; J3010

== ENCOUNTER → 2022-07-12 12:42 | Outpatient (CLI) | payer MEDICARE, MEDICAID, SELFPAY ==
[2021-09-06 12:43] VITALS: BMI 19.2
--- NOTE | 2022-07-12 12:44 | DI.RAD.S_ITS ---
PROCEDURE: XR FINGER RT MIN 2V INDICATIONS: right index finger pain TECHNIQUE: AP hand, 2 views of the 2nd finger(s) acquired. COMPARISON: None. FINDINGS: Bones: No fractures or dislocations. No suspicious bony lesions. Degenerative narrowing is present at the IP joints overall [id number] most severe at the 2nd DIP joint. No distinct erosions. Moderate 1st CMC degenerative change. Soft tissues: No suspicious soft tissue calcifications. IMPRESSION: Scattered areas of arthritic change most severe at the 1st CMC joint. Dictated by: Cherrie Pedroza M.D. on 07/12/2022 at 16:24 Approved by: Cherrie Pedroza M.D. on 07/12/2022 at 16:24
== END ==
PROVIDERS: PCP Family Medicine; Referring Provider Nurse Practitioner Family; Visit Provider Nurse Practitioner Family
DX: M79.644 Pain in right finger(s) (principal)
CPT/HCPCS: 73140

== ENCOUNTER → 2022-10-12 10:00 | Outpatient (CLI) | payer MEDICARE, MEDICAID, SELFPAY ==
[2021-09-06 12:43] VITALS: BMI 19.2
[2022-10-12 10:26] LABS: Hematocrit 39.2 % (36-46); Hemoglobin 13.4 g/dL (12.0-16.0); Mean Corpuscular HGB Conc 34.2 % (30-36); Mean Corpuscular Hemoglobin 29.5 PG (26-34); Mean Corpuscular Volume 86.3 fL (80-100); Platelet Count 278 X10^3/uL (150-400); Red Blood Cell Count 4.54 X10^6/uL (4.0-5.2); Red Cell Distribution Width 13.3 % (11.6-14.8); White Blood Cell Count 3.6 X10^3/uL (4.5-11.0)
[2022-10-12 10:38] LABS: Lactate Dehydrogenase 214 U/L (120-246)
[2022-10-12 11:02] LABS: Neutrophils Absolute Manual 2124 /uL (3000-5900); RBC Morphology Normal Morphology; Total Cells Counted 100
== END ==
PROVIDERS: PCP Family Medicine; Referring Provider Family Medicine; Visit Provider Family Medicine
DX: D72.829 Elevated white blood cell count, unspecified (principal)
CPT/HCPCS: 36415; 83615; 85025

== ENCOUNTER 2023-02-23 15:14 | Emergency (ER) | payer MEDICARE, MEDICAID, SELFPAY ==
[2021-09-06 12:43] VITALS: BMI 19.2
[2023-02-23 15:16] VITALS: BP 142/90; PULSE 104; RESP 18; TEMP 36.9; O2SAT 99; BMI 18.8
[2023-02-23] MEDS: TET,DIPH,PERTUSS(ACELL),VAC/PF 0.5 ML SYRINGE IM (16:00)
[2023-02-23] MEDS: LIDOCAINE 1% (PF) 5 ML INJ (16:34)
[2023-02-23 16:50] VITALS: BP 164/74; PULSE 88; RESP 20; O2SAT 99
[2023-02-23 17:54] VITALS: BP 174/87; PULSE 87; RESP 20; O2SAT 100
--- NOTE | 2023-02-23 18:04 | ED_ITS ---
HPI - Wound/Laceration <Cari Norman PA-C - Last Filed: 02/23/23 19:17> General Chief Complaint: Wound/Laceration Stated Complaint: left finger/cut/injury Time Seen by Provider: 02/23/23 15:30 Source: patient Mode of arrival: Ambulatory History of Present Illness HPI narrative: 67-year-old female here for a finger laceration on her left index finger. 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 This occurred at 7:00 p.m. last night. States she applied pressure and a bandage and did not look at it again until this afternoon because she is scared of what it would look like. When she looked she noticed it is a pretty large flap of skin so she decided come to the ER. States that the finger is throbbing and painful. Unsure of her last tetanus shot. Related Data Home Medications Medication Instructions Recorded Confirmed ibuprofen 200 mg tablet 200 mg PO Q6HP PRN pain ##0 06/22/17 10/12/22 Previous Rx's Medication Instructions Recorded estradiol 10 mcg vaginal tablet See Rx Instructions .Route 02/06/21 .COMPLEX #24 tabs diclofenac sodium 1 % topical gel 4 g topical QID PRN pain (scale 03/20/22 (Arthritis Pain (diclofenac)) score 1-3) #100 grams sumatriptan succinate 100 mg tablet 100 mg PO Q2-4H PRN migraine 03/20/22 headache #14 tabs triamcinolone acetonide 0.1 % 1 applic topical BID PRN rash #30 07/17/22 topical cream grams trazodone 50 mg tablet See Rx Instructions .Route 10/09/22 .COMPLEX #60 tabs estradiol 1 mg tablet See Rx Instructions .Route 11/12/22 .COMPLEX #90 tabs lamotrigine 200 mg tablet See Rx Instructions .Route 11/12/22 .COMPLEX #135 tabs albuterol sulfate 90 mcg/actuation 2 puff inhalation Q6H PRN 12/26/22 aerosol inhaler shortness of breath or wheezing #8.5 grams fluticasone propionate 110 1 puff inhalation BID #12 grams 12/26/22 mcg/actuation HFA aerosol inhaler (Flovent HFA) omeprazole 20 mg capsule,delayed 20 mg PO DAILY #90 caps 12/06/23 release dextroamphetamine-amphetamine 20 20 mg PO BID #60 tabs 02/16/23 mg tablet (Adderall) cephalexin 500 mg capsule 500 mg PO BID #14 caps 02/23/23 Allergies Allergy/AdvReac Type Severity Reaction Status Date / Time No Known Drug Allergies Allergy Verified 10/12/22 09:46 Review of Systems <Cari Norman PA-C - Last Filed: 02/23/23 19:17> Review of Systems ROS Unobtainable: All systems reviewed & are unremarkable except as noted in HPI and below Patient History <Cari Norman PA-C - Last Filed: 02/23/23 19:17> Medical History (Updated 02/23/23 @ 18:06 by Cari Norman PA-C) Plantar warts (~2017) Osteoarthritis (~2007) Depression (~2000) Migraines (~1971) Osteoporosis (~2007) Carpal tunnel syndrome Chicken pox (~1960) Ovarian cyst (~2017) Cyst (~2008) Atrophic vaginitis History of endometrial biopsy Hip dysplasia (~1956) DJD (degenerative joint disease) Cervical stenosis (uterine cervix) Postmenopausal bleeding Asthma ADHD (~1962) GERD (gastroesophageal reflux disease) Bipolar 1 disorder (~2000) Surgical History Anesthesia History of hip replacement (~2018) History of arthroscopic knee surgery (~2003) History of appendectomy (~1977) History of hip surgery (~1958) History of bilateral salpingo-oophorectomy (BSO) (05/05/18) S/P laparoscopic supracervical hysterectomy (05/05/18) Hx of dilation and curettage Surgery, elective Hx of repair of left rotator cuff Family History Father Dementia Mother Hypertension History of heart disease Grandmother Cancer Grandfather History of heart disease Family/Other Transgender Social History (System 01/20/21 @ 14:06 by Lady Irene Da Silva) household members: family Smoking Status: Never smoker alcohol intake: current substance use type: does not use Smoking Status: Never smoker alcohol intake frequency: a few times a week Substance Use Type: does not use Exam <JOHNNY Padilla Last Filed: 02/23/23 19:17> Narrative Exam Narrative: GENERAL: [67] year old patient appears stated age. Well-developed patient, in no acute distress. HEAD: Atraumatic. Normocephalic. EYES: Pupils equal round and reactive. Extraocular motions intact. No scleral icterus. No injection or drainage. ENT: Nose without bleeding, purulent drainage. NECK: Trachea midline. Non tender RESPIRATORY: Respiratory rate and effort normal EXTREMITIES: No edema or joint tenderness. NEURO: AOx3. SKIN: Left index finger with a 2 cm flap laceration to the PIP, palmar surface. Flap is not well approximated and is bunched up and stuck in a not ideal position but there is no current bleeding. Normal sensation, normal cap refill, normal movement and strength of her finger Initial Vital Signs Initial Vital Signs: Vital Signs Temperature 98.4 F 02/23/23 15:16 Pulse Rate 104 H 02/23/23 15:16 Respiratory Rate 18 02/23/23 15:16 Blood Pressure 142/90 H 02/23/23 15:16 Pulse Oximetry 99 02/23/23 15:16 Oxygen Delivery Method Room Air 02/23/23 15:16 <Nathalia Neumann DO - Last Filed: 02/24/23 07:36> Initial Vital Signs Initial Vital Signs: Vital Signs Temperature 98.4 F 02/23/23 15:16 Pulse Rate 104 H 02/23/23 15:16 Respiratory Rate 18 02/23/23 15:16 Blood Pressure 142/90 H 02/23/23 15:16 Pulse Oximetry 99 02/23/23 15:16 Oxygen Delivery Method Room Air 02/23/23 15:16 Procedures <JOHNNY Padilla Last Filed: 02/23/23 19:17> Laceration Repair Laceration 1: Time of procedure: 18:00 Site: hand (Left index finger) Size (cm): 2 Description: flap Depth: simple, single layer Local Anesthetic: lidocaine 1% (Digital block) Amount of anesthesia used (mL): 3 Pre-repair: irrigated extensively Skin layer closed with: nylon Skin layer suture size: 5-0 Number of sutures: 5 Technique: simple, interrupted Course <JOHNNY Padilla Last Filed: 02/23/23 19:17> Orders Ordered: Discontinued Medications Diphtheria/Tetanus/Acell Pertussis (Tet,Diph,Pertuss(Acell),Vac/Pf 0.5 Ml Syringe) 0.5 ml IM .ONCE ONE Stop: 02/23/23 15:20 Last Admin: 02/23/23 16:00 Dose: 0.5 ml Documented By: MANUELA Lidocaine HCl (Lidocaine 1% (Pf) 5 Ml) 5 ml INJ NOW ONE Stop: 02/23/23 16:23 Last Admin: 02/23/23 16:34 Dose: 5 ml Documented By: MANUELA Vital Signs Vital signs: Vital Signs - 8 hr 02/23/23 15:16 02/23/23 16:50 02/23/23 17:54 Temperature 98.4 F Pulse Rate 104 H 88 87 Respiratory Rate 18 20 20 Blood Pressure 142/90 H 164/74 H 174/87 H Pulse Oximetry 99 99 100 Oxygen Delivery Method Room Air Room Air Room Air <Nathalia Neumann DO - Last Filed: 02/24/23 07:36> Orders Ordered: Discontinued Medications Diphtheria/Tetanus/Acell Pertussis (Tet,Diph,Pertuss(Acell),Vac/Pf 0.5 Ml Syringe) 0.5 ml IM .ONCE ONE Stop: 02/23/23 15:20 Last Admin: 02/23/23 16:00 Dose: 0.5 ml Documented By: MANUELA Lidocaine HCl (Lidocaine 1% (Pf) 5 Ml) 5 ml INJ NOW ONE Stop: 02/23/23 16:23 Last Admin: 02/23/23 16:34 Dose: 5 ml Documented By: MANUELA Vital Signs Vital signs: Vital Signs - 8 hr 02/23/23 15:16 02/23/23 16:50 02/23/23 17:54 Temperature 98.4 F Pulse Rate 104 H 88 87 Respiratory Rate 18 20 20 Blood Pressure 142/90 H 164/74 H 174/87 H Pulse Oximetry 99 99 100 Oxygen Delivery Method Room Air Room Air Room Air MDM - Wound/Laceration <Cari Norman PA-C - Last Filed: 02/23/23 19:17> MDM Narrative Medical decision making narrative: This laceration occurred at 7:00 p.m. the night before which is approximately 21 hours [employer]. This is not an ideal time for closure but patient's laceration is a flap of skin that starts off superficial but does connect with some subcutaneous area more distally. It would not be ideal to trim the flap of skin off due to the depth of the laceration. When she came in the flap was not well approximated so I numbed her with a digital block and was able to gently release the flap of skin and smooth it over the wound so that all the edges were well approximated. I do feel this wound would be best healed with some sutures so I placed 5 simple interrupted sutures which approximated all the edges of the flap. Due to the length of the time since the injury I will place patient on antibiotics. Wound was cleaned and bandage and I gave her wound care instructions as well as strict return precautions and recommend she follows up with her PCP in 1 week to check the wound and see if the sutures are ready to be removed. She had normal neurovascular exam and there does not appear to be any injury to the tendon. Multiple etiologies for patient's symptoms considered including, but not limited to: Laceration, tendon injury Patient's symptoms improved over duration of stay with above-stated therapies. Findings and discharge diagnosis discussed with patient/family followed by verbalization of understanding Return precautions discussed with patient/family whom verbalize understanding of diagnosis and plan Discharge Plan Departure Patient Disposition: Home Clinical Impression: Laceration of finger Qualifiers: Encounter type: initial encounter Finger: index finger Damage to nail status: without damage Foreign body presence: without foreign body Laterality: left Qualified Code(s): S61.211A - Laceration without foreign body of left index finger without damage to nail, initial encounter Instructions: DI for Laceration Repair Activity Restrictions/Additional Instructions: Thank you for coming to see us today for your left finger laceration. It was repaired with 5 stitches which will need to be removed in 8-10 days by her primary care doctor. Please clean the wound with soap and water gently twice a day and take the antibiotics as prescribed. Watch carefully for signs of infection such as redness, discharge, swelling, increased pain, and/or fever. Prescriptions: New cephalexin 500 mg capsule 500 mg PO BID Qty: 14 0RF No Action ibuprofen 200 MG tablet 200 mg PO Q6HP PRN (Reason: pain) Qty: 0 estradiol 10 mcg tablet See Rx Instructions .ROUTE .COMPLEX Qty: 24 3RF Dose Instruction: insert 1 tablet vaginally two times a week Rx Instructions: insert 1 tablet vaginally two times a week trazodone 50 mg tablet See Rx Instructions .ROUTE .COMPLEX Qty: 60 3RF Dose Instruction: TAKE 1 TABLET BY MOUTH AT BEDTIME NEEDED FOR SLEEP Rx Instructions: TAKE 1 TABLET BY MOUTH AT BEDTIME NEEDED FOR SLEEP lamotrigine 200 mg tablet See Rx Instructions .ROUTE .COMPLEX Qty: 135 2RF Dose Instruction: take 1 and 1/2 tablet by mouth daily Rx Instructions: take 1 and 1/2 tablet by mouth daily estradiol 1 mg tablet See Rx Instructions .ROUTE .COMPLEX Qty: 90 1RF Dose Instruction: take 1 tablet by mouth daily Rx Instructions: take 1 tablet by mouth daily fluticasone propionate [Flovent HFA] 110 mcg/actuation HFA aerosol inhaler 1 puff inhalation BID Qty: 12 2RF albuterol sulfate 90 mcg/actuation HFA aerosol inhaler 2 puff inhalation Q6H PRN (Reason: shortness of breath or wheezing) Qty: 8.5 2RF omeprazole 20 mg capsule,delayed release(DR/EC) 20 mg PO DAILY Qty: 90 3RF dextroamphetamine-amphetamine [Adderall] 20 mg tablet 20 mg PO BID Qty: 60 0RF sumatriptan succinate 100 mg tablet 100 mg PO Q2-4H PRN (Reason: migraine headache) Qty: 14 3RF diclofenac sodium [Arthritis Pain (diclofenac)] 1 % gel 4 g topical QID PRN (Reason: pain (scale score 1-3)) Qty: 100 3RF Rx Instructions: apply to single knee, ankle, foot; for foot includes sole/toes/top of foot triamcinolone acetonide 0.1 % cream 1 applic topical BID PRN (Reason: rash) Qty: 30 11RF Rx Instructions: apply to affected areas for a 2 weeks if needed then stop for 1-2 weeks. can repeat as needed. Referrals: Leonidas Solorzano MD [Primary Care Provider] - Stand Alone Forms: Patient Portal/API ED Sign-out <Nathalia Neumann DO - Last Filed: 02/24/23 07:36> Cosign ED Attending Yumikoature Attestation: I was immediately available in the department for consultation.
== END 2023-02-23 18:16 | disposition home or self-care (01) ==
PROVIDERS: Emergency Provider Physician Assistant; PCP Family Medicine
DX: S61.211A Laceration without foreign body of left index finger without damage to nail, initial encounter (principal); W26.9XXA Contact with unspecified sharp object(s), initial encounter; Z79.899 Other long term (current) drug therapy; Z23 Encounter for immunization
CPT/HCPCS: 12001; 90471; 99283; 99284; 90715

== ENCOUNTER 2023-02-27 09:11 | Emergency (ER) | payer MEDICARE, MEDICAID, SELFPAY ==
[2021-09-06 12:43] VITALS: BMI 19.2
[2023-02-27 09:16] VITALS: BP 177/90
[2023-02-27 09:17] VITALS: PULSE 96
[2023-02-27 09:20] VITALS: BP 177/90; PULSE 96; RESP 18; TEMP 36.7; O2SAT 100; BMI 18.8
--- NOTE | 2023-02-27 09:53 | ED.RECABL ---
HPI - Recheck/Abnormal Lab/Rx General Chief Complaint: Recheck/Abnormal Lab/Rx Stated Complaint: bleeding stitches lt index finger Time Seen by Provider: 02/27/23 09:51 Source: patient Mode of arrival: Ambulatory History of Present Illness HPI narrative: Patient is 67-year-old female who presents today with finger pain. She had stitches in left index finger on February 23. She reports that she keeps bumping it she thought she should get it checked out it maybe was bleeding it has not bleeding now. No fever no swelling no increased pain. Related Data Home Medications Medication Instructions Recorded Confirmed ibuprofen 200 mg tablet 200 mg PO Q6HP PRN pain ##0 06/22/17 10/12/22 Previous Rx's Medication Instructions Recorded estradiol 10 mcg vaginal tablet See Rx Instructions .Route 02/06/21 .COMPLEX #24 tabs diclofenac sodium 1 % topical gel 4 g topical QID PRN pain (scale 03/20/22 (Arthritis Pain (diclofenac)) score 1-3) #100 grams sumatriptan succinate 100 mg tablet 100 mg PO Q2-4H PRN migraine 03/20/22 headache #14 tabs triamcinolone acetonide 0.1 % 1 applic topical BID PRN rash #30 07/17/22 topical cream grams trazodone 50 mg tablet See Rx Instructions .Route 10/09/22 .COMPLEX #60 tabs estradiol 1 mg tablet See Rx Instructions .Route 11/12/22 .COMPLEX #90 tabs lamotrigine 200 mg tablet See Rx Instructions .Route 11/12/22 .COMPLEX #135 tabs albuterol sulfate 90 mcg/actuation 2 puff inhalation Q6H PRN 12/26/22 aerosol inhaler shortness of breath or wheezing #8.5 grams fluticasone propionate 110 1 puff inhalation BID #12 grams 12/26/22 mcg/actuation HFA aerosol inhaler (Flovent HFA) omeprazole 20 mg capsule,delayed 20 mg PO DAILY #90 caps 02/06/23 release dextroamphetamine-amphetamine 20 20 mg PO BID #60 tabs 02/16/23 mg tablet (Adderall) cephalexin 500 mg capsule 500 mg PO BID #14 caps 02/23/23 Allergies Allergy/AdvReac Type Severity Reaction Status Date / Time No Known Drug Allergies Allergy Verified 10/12/22 09:46 Patient History Medical History (Updated 02/27/23 @ 09:57 by Fatuma Palomares DO) Plantar warts (~2017) Osteoarthritis (~2007) Depression (~2000) Migraines (~1971) Osteoporosis (~2007) Carpal tunnel syndrome Chicken pox (~1960) Ovarian cyst (~2017) Cyst (~2008) Atrophic vaginitis History of endometrial biopsy Hip dysplasia (~1956) DJD (degenerative joint disease) Cervical stenosis (uterine cervix) Postmenopausal bleeding Asthma ADHD (~1962) GERD (gastroesophageal reflux disease) Bipolar 1 disorder (~2000) Surgical History Anesthesia History of hip replacement (~2018) History of arthroscopic knee surgery (~2003) History of appendectomy (~1977) History of hip surgery (~1958) History of bilateral salpingo-oophorectomy (BSO) (05/05/18) S/P laparoscopic supracervical hysterectomy (05/05/18) Hx of dilation and curettage Surgery, elective Hx of repair of left rotator cuff Family History Father Dementia Mother Hypertension History of heart disease Grandmother Cancer Grandfather History of heart disease Family/Other Transgender Social History (System 01/20/21 @ 14:06 by Lady Irene Da Silva) household members: family Smoking Status: Never smoker alcohol intake: current substance use type: does not use Smoking Status: Never smoker alcohol intake frequency: a few times a week Substance Use Type: does not use Exam Initial Vital Signs Initial Vital Signs: Vital Signs Blood Pressure 177/90 H 02/27/23 09:16 GENERAL: Well-appearing, well-nourished and in no acute distress. CARDIOVASCULAR: peripheral pulses in tact, cap refill <2 sec RESPIRATORY: No respiratory distress, speaks in full sentences without difficulty EXTREMITIES: Normal range of motion, no clubbing or edema. Neurovascularly intact NEUROLOGICAL: Cranial nerves II through XII grossly intact. Normal gait and speech. SKIN: Left index finger stitches in place no erythema no drainage, still healing not ready for sutures to be removed Course Vital Signs Vital signs: Vital Signs - 8 hr 02/27/23 09:16 02/27/23 09:17 12/27/23 09:20 Temperature 98.1 F Pulse Rate 96 H 96 H Respiratory Rate 18 Blood Pressure 177/90 H 177/90 H Pulse Oximetry 100 Oxygen Delivery Method Room Air MDM - Recheck/Abnormal Lab/Rx MDM Narrative Medical decision making narrative: Patient has left index finger injury with sutures in place. There is no evidence of infection. She has given a finger splint to help protect it from when she bumps it. She is appointment with PCP tomorrow. Encouraged supportive care antibiotic ointment. Discharge Plan Departure Patient Disposition: Home Clinical Impression: Finger pain, left Instructions: DI for Suture Removal Activity Restrictions/Additional Instructions: *You have been diagnosed with left finger pain *What to do: At this time use finger splint to help protect finger. Continue antibiotic ointment on it 1-2 times daily. I think sutures may need to stay in a few more days *Continue to take medications as directed Tylenol Motrin as needed *Follow up with your primary care provider in 2-3 days or call [phone] *Return to ER if you should have increasing redness swelling drainage or any new, worsening or concerning symptoms Prescriptions: No Action ibuprofen 200 MG tablet 200 mg PO Q6HP PRN (Reason: pain) Qty: 0 estradiol 10 mcg tablet See Rx Instructions .ROUTE .COMPLEX Qty: 24 3RF Dose Instruction: insert 1 tablet vaginally two times a week Rx Instructions: insert 1 tablet vaginally two times a week trazodone 50 mg tablet See Rx Instructions .ROUTE .COMPLEX Qty: 60 3RF Dose Instruction: TAKE 1 TABLET BY MOUTH AT BEDTIME NEEDED FOR SLEEP Rx Instructions: TAKE 1 TABLET BY MOUTH AT BEDTIME NEEDED FOR SLEEP lamotrigine 200 mg tablet See Rx Instructions .ROUTE .COMPLEX Qty: 135 2RF Dose Instruction: take 1 and 1/2 tablet by mouth daily Rx Instructions: take 1 and 1/2 tablet by mouth daily estradiol 1 mg tablet See Rx Instructions .ROUTE .COMPLEX Qty: 90 1RF Dose Instruction: take 1 tablet by mouth daily Rx Instructions: take 1 tablet by mouth daily fluticasone propionate [Flovent HFA] 110 mcg/actuation HFA aerosol inhaler 1 puff inhalation BID Qty: 12 2RF albuterol sulfate 90 mcg/actuation HFA aerosol inhaler 2 puff inhalation Q6H PRN (Reason: shortness of breath or wheezing) Qty: 8.5 2RF omeprazole 20 mg capsule,delayed release(DR/EC) 20 mg PO DAILY Qty: 90 3RF dextroamphetamine-amphetamine [Adderall] 20 mg tablet 20 mg PO BID Qty: 60 0RF sumatriptan succinate 100 mg tablet 100 mg PO Q2-4H PRN (Reason: migraine headache) Qty: 14 3RF diclofenac sodium [Arthritis Pain (diclofenac)] 1 % gel 4 g topical QID PRN (Reason: pain (scale score 1-3)) Qty: 100 3RF Rx Instructions: apply to single knee, ankle, foot; for foot includes sole/toes/top of foot triamcinolone acetonide 0.1 % cream 1 applic topical BID PRN (Reason: rash) Qty: 30 11RF Rx Instructions: apply to affected areas for a 2 weeks if needed then stop for 1-2 weeks. can repeat as needed. cephalexin 500 mg capsule 500 mg PO BID Qty: 14 0RF Referrals: Leonidas Solorzano MD [Primary Care Provider] - Stand Alone Forms: Patient Portal/API
== END 2023-02-27 10:08 | disposition home or self-care (01) ==
PROVIDERS: Emergency Provider Emergency Medicine; PCP Family Medicine
DX: M79.645 Pain in left finger(s) (principal)
CPT/HCPCS: 29130; 99281; 99282

== ENCOUNTER → 2023-04-08 09:30 | Outpatient (CLI) | payer MEDICARE, MEDICAID, SELFPAY ==
[2021-09-06 12:43] VITALS: BMI 19.2
--- NOTE | 2023-04-08 09:31 | DI.US.S_ITS ---
LIMITED ULTRASOUND OF RIGHT BREAST: 04/08/2023 CLINICAL: Patient returns today to evaluate a focal asymmetry in the right breast. Comparison is made to exams dated: 04/08/2023 mammogram, 06/11/2022 ultrasound, 06/11/2022 mammogram, 04/20/2022 mammogram, 03/31/2020 mammogram, and 12/12/2018 mammogram - [facility]. Color flow and real-time ultrasound of the right breast 2 o'clock region were performed on the areas of interest. Peñaloza scale images of the real-time examination were reviewed. There is a stable 0.8 cm x 0.7 cm x 0.5 cm oval cyst in the right breast at 3 o'clock middle depth 4 cm from the nipple. This oval cyst is hypoechoic with posterior acoustic enhancement. This is likely incidental, and does not correlate with the previous, now resolved mammographic finding. IMPRESSION: PROBABLY BENIGN The stable 0.8 cm x 0.7 cm x 0.5 cm oval cyst in the right breast is most consistent with a complicated cyst and is probably benign. A follow-up ultrasound in 6 months is recommended to demonstrate stability. This exam was interpreted at Station ID: [id number]. Electronically Signed By: Mari wilcox/:04/09/2023 12:26:50 Entry: - 04/09/2023 12:26:50 letter sent: Followup Recommended Ultrasound BI-RADS: 3 Probably benign
--- NOTE | 2023-04-08 09:31 | DI.MG.S_ITS ---
BILATERAL DIGITAL DIAGNOSTIC MAMMOGRAM 3D/2D SHORT-TERM FOLLOW-UP: 04/08/2023 CLINICAL: Short term follow up of the right breast, due for bilateral imaging. Comparison is made to exams dated: 06/11/2022 mammogram, 04/20/2022 mammogram, and 03/31/2020 mammogram - [facility]. Both breasts are heterogeneously dense, which may obscure small masses (category c / 51-75% glandular tissue). The 7 mm asymmetry in the right breast middle depth medial region seen on the craniocaudal view only is no longer seen. No other significant masses, calcifications, or other findings are seen in either breast. IMPRESSION: INCOMPLETE: NEEDS ADDITIONAL IMAGING EVALUATION A targeted ultrasound of the right breast is recommended and will be performed immediately following this exam to evaluate the previously seen complicated cyst. Based on the Tyrer Cuzick model (a risk assessment model) the patient's lifetime risk is 15.5% and her 10 year risk is 8.3%. According to the ACR, ACS, and NCCN guidelines, an annual breast MRI exam along with mammogram is recommended if the patient's lifetime risk is 20% or greater. This exam was interpreted at Station ID: [id number]. NOTE: For mammograms, a report in lay terms will be sent to the patient. Approximately 15% of breast malignancies will not be visualized mammographically. In the management of a palpable breast mass, a negative mammogram must not discourage biopsy of a clinically suspicious lesion. Electronically Signed By: Mari Gill M.D. lk/:04/08/2023 10:07:59 ACR BI-RADS Category 0: Incomplete 3340F
== END ==
PROVIDERS: PCP Family Medicine; Referring Provider Family Medicine; Visit Provider Family Medicine
DX: R92.8 Other abnormal and inconclusive findings on diagnostic imaging of breast (principal); R92.333 Mammographic heterogeneous density, bilateral breasts; N83.201 Unspecified ovarian cyst, right side
CPT/HCPCS: 76642; 77066; G0279

== ENCOUNTER → 2023-06-14 07:13 | Outpatient (CLI) | payer MEDICARE, MEDICAID, SELFPAY ==
[2021-09-06 12:43] VITALS: BMI 19.2
[2023-06-14 08:25] LABS: Add Manual Diff / Slide Review NO; Basophils Absolute Auto 0 /uL (0-100); Basophils Percent Auto 0.7 % (0-2); Eosinophils Absolute Auto 200 /uL (0-450); Eosinophils Percent Auto 7.4 % (2-4); Hematocrit 41.7 % (36-46); Lymphocytes Absolute Auto 900 /uL (1100-4500); Lymphocytes Percent Auto 33.4 % (25-40); Mean Corpuscular HGB Conc 33.5 % (30-36); Mean Corpuscular Hemoglobin 28.8 PG (26-34); Monocytes Absolute Auto 400 /uL (0-900); Monocytes Percent Auto 15.7 % (3-14); Neutrophils Absolute Auto 1200 /uL (1500-7000); Neutrophils Percent Auto 42.8 % (50-75); Platelet Count 248 X10^3/uL (150-400); Red Blood Cell Count 4.85 X10^6/uL (4.0-5.2); Red Cell Distribution Width 13.4 % (11.6-14.8); White Blood Cell Count 2.8 X10^3/uL (4.5-11.0)
[2023-06-14 08:38] LABS: Alanine Aminotransferase 149 IU/L (<35); Albumin 4.1 g/dL (3.5-5.0); Albumin Globulin Ratio 1.6 (1.0-2.8); Alkaline Phosphatase 122 U/L (38-126); Aspartate Aminotransferase 136 IU/L (14-36); BUN Creatinine Ratio 30.8 (6-22); Blood Urea Nitrogen 20 mg/dL (7-17); Calcium 9.6 mg/dL (8.4-10.2); Carbon Dioxide 29 mmol/L (22-32); Chloride 105 mmol/L (98-107); Cholesterol 224 mg/dL (140-199); Estimated Glomerular Filt Rate > 60 mL/min (>60); Globulin 2.6 g/dL (1.7-4.1); Glucose 97 mg/dL (80-110); HEMOLYSIS < 15 (0-50); Potassium 3.7 mmol/L (3.4-5.1); Sodium 138 mmol/L (137-145); Total Protein 6.7 g/dL (6.3-8.2); Triglycerides 63 mg/dL (35-150)
[2023-06-14 09:04] LABS: TSH w/ Reflex to FT4 2.29 uIU/mL (0.47-4.68)
[2023-06-14 09:17] LABS: HDL Cholesterol 183 mg/dL (40-60); LDL Cholesterol Calculated 28 mg/dL (<100)
[2023-06-14 09:25] LABS: Hep C Virus Ab w/Reflex Quant REACTIVE s/c (NEGATIVE)
[2023-06-14 12:21] LABS: Lactate Dehydrogenase 197 U/L (120-246)
[2023-06-14 12:51] LABS: Hepatitis B Surface Antigen NEGATIVE s/c (NEGATIVE)
[2023-06-15 05:47] LABS: Apolipoprotein B 48 mg/dL (<90)
[2023-06-17 09:39] LABS: Lipoprotein (a) 64.4 nmol/L (<75.0)
[2023-06-18 18:43] LABS: HCV Genotype 1a (.); HCV LOG 10 6.797 (.)
== END ==
PROVIDERS: PCP Family Medicine; Referring Provider Family Medicine; Visit Provider Family Medicine
DX: G43.909 Migraine, unspecified, not intractable, without status migrainosus (principal); F31.9 Bipolar disorder, unspecified; R73.9 Hyperglycemia, unspecified; F90.9 Attention-deficit hyperactivity disorder, unspecified type; F32.A Depression, unspecified; R74.8 Abnormal levels of other serum enzymes; E78.89 Other lipoprotein metabolism disorders; D72.829 Elevated white blood cell count, unspecified
CPT/HCPCS: 36415; 80053; 80061; 82172; 83615; 83695; 84443; 85025; 86803; 87340; 87522

== ENCOUNTER → 2023-06-17 11:55 | Outpatient (CLI) | payer MEDICARE, MEDICAID, SELFPAY ==
[2021-09-06 12:43] VITALS: BMI 19.2
--- NOTE | 2023-06-17 11:55 | DI.US.S_ITS ---
PROCEDURE: US ABDOMEN COMPLETE INDICATIONS: Elevated liver enzymes TECHNIQUE: Real-time scanning was performed of the abdominal and retroperitoneal organs, with image documentation. COMPARISON: [facility], US, ABDOMEN LIMITED, 09/19/2011, 13:11. FINDINGS: Liver: Liver is normal in size and homogeneous in echotexture. Gallbladder: No gallstones. No wall thickening. No pericholecystic edema. Negative sonographic Win's sign. Biliary ducts: Intrahepatic bile ducts are non-dilated. Extrahepatic bile duct caliber measures 6 mm. Normal is 6-7 mm or less in diameter, or 10 mm or less post-cholecystectomy. Pancreas: Visualized portions of the pancreas are sonographically normal. Miscellaneous: No free abdominal fluid. IMPRESSION: Normal appearing liver by ultrasound. The gallbladder demonstrates a normal sonographic appearance. No biliary dilatation is seen. Dictated by: Aren Menon M.D. on 06/17/2023 at 14:07 Approved by: Aren Menon M.D. on 06/17/2023 at 14:07
== END ==
PROVIDERS: PCP Family Medicine; Referring Provider Family Medicine; Visit Provider Family Medicine
DX: R74.8 Abnormal levels of other serum enzymes (principal); R73.9 Hyperglycemia, unspecified; E78.89 Other lipoprotein metabolism disorders; D72.829 Elevated white blood cell count, unspecified; F31.9 Bipolar disorder, unspecified
CPT/HCPCS: 36415; 76700; 80053; 82390; 85025; 86015; 86038; 86706

== ENCOUNTER → 2023-06-17 14:35 | Outpatient (CLI) | payer MEDICARE, MEDICAID, SELFPAY ==
[2021-09-06 12:43] VITALS: BMI 19.2
[2023-06-17 15:38] LABS: Add Manual Diff / Slide Review NO; Basophils Absolute Auto 0 /uL (0-100); Basophils Percent Auto 0.6 % (0-2); Eosinophils Absolute Auto 200 /uL (0-450); Eosinophils Percent Auto 6.2 % (2-4); Hematocrit 40.5 % (36-46); Hemoglobin 13.5 g/dL (12.0-16.0); Lymphocytes Absolute Auto 700 /uL (1100-4500); Lymphocytes Percent Auto 22.4 % (25-40); Mean Corpuscular HGB Conc 33.5 % (30-36); Mean Corpuscular Hemoglobin 28.9 PG (26-34); Mean Corpuscular Volume 86.2 fL (80-100); Monocytes Absolute Auto 300 /uL (0-900); Monocytes Percent Auto 9.1 % (3-14); Neutrophils Absolute Auto 1900 /uL (1500-7000); Neutrophils Percent Auto 61.7 % (50-75); Platelet Count 224 X10^3/uL (150-400); Red Blood Cell Count 4.69 X10^6/uL (4.0-5.2); Red Cell Distribution Width 13.5 % (11.6-14.8)
[2023-06-17 16:01] LABS: HEMOLYSIS < 15 (0-50); Potassium 3.8 mmol/L (3.4-5.1)
[2023-06-17 16:02] LABS: Alanine Aminotransferase 131 IU/L (<35); Albumin 4.5 g/dL (3.5-5.0); Alkaline Phosphatase 110 U/L (38-126); Aspartate Aminotransferase 117 IU/L (14-36); BUN Creatinine Ratio 17.3 (6-22); Bilirubin Total 0.7 mg/dL (0.2-1.3); Blood Urea Nitrogen 13 mg/dL (7-17); Calcium 9.3 mg/dL (8.4-10.2); Carbon Dioxide 29 mmol/L (22-32); Chloride 108 mmol/L (98-107); Estimated Glomerular Filt Rate > 60 mL/min (>60); Globulin 2.3 g/dL (1.7-4.1); Glucose 84 mg/dL (80-110); Sodium 137 mmol/L (137-145); Total Protein 6.8 g/dL (6.3-8.2)
[2023-06-18 05:14] LABS: Ceruloplasmin 38.1 mg/dL (19.0-39.0)
[2023-06-19 07:35] LABS: Hepatitis B Surf Ab Qualitativ Non Reactive (.)
[2023-06-19 16:18] LABS: Smooth Muscle Antibody 40 Units (0-19)
[2023-06-20 16:08] LABS: ANA Screen, IFA Negative (.)
== END ==
PROVIDERS: PCP Family Medicine; Referring Provider Family Medicine; Visit Provider Family Medicine
DX: R74.8 Abnormal levels of other serum enzymes (principal); R73.9 Hyperglycemia, unspecified; E78.89 Other lipoprotein metabolism disorders; D72.829 Elevated white blood cell count, unspecified; F31.9 Bipolar disorder, unspecified
CPT/HCPCS: 36415; 80053; 82390; 85025; 86015; 86038; 86706

== ENCOUNTER → 2023-09-11 08:57 | Outpatient (CLI) | payer MEDICARE, MEDICAID, SELFPAY ==
[2021-09-06 12:43] VITALS: BMI 19.2
--- NOTE | 2023-09-11 08:58 | DI.RAD.S_ITS ---
PROCEDURE: XR LUMBAR SPINE 2-3V INDICATIONS: chronic lbp, recent exacerbation w/ radiculopathy TECHNIQUE: 3 views of the lumbar spine were acquired. COMPARISON: None. FINDINGS: Bones: 5 [id number] vertebrae are present. 4 mm grade 1 retrolisthesis at L1-2. Trace 1-2 mm retrolisthesis at L2-3 and L3-4. Mild levoconvex curvature. No vertebral body compression fractures. No suspicious bony lesions. Multilevel disc space narrowing and degenerative endplate changes. Multilevel facet hypertrophy. Soft tissues: Overlying bowel gas pattern is normal. No suspicious soft tissue calcifications. IMPRESSION: Mild to moderate multilevel spondylosis and degenerative spondylolisthesis. Approved by: Cornelius Chauhan M.D. on 09/11/2023 at 13:56
== END ==
PROVIDERS: PCP Family Medicine; Referring Provider Nurse Practitioner Family; Visit Provider Nurse Practitioner Family
DX: M47.816 Spondylosis without myelopathy or radiculopathy, lumbar region (principal); M43.16 Spondylolisthesis, lumbar region; M54.50 Low back pain, unspecified; M79.606 Pain in leg, unspecified
CPT/HCPCS: 72100

== ENCOUNTER → 2023-10-08 12:45 | Outpatient (CLI) | payer MEDICARE, MEDICAID, SELFPAY ==
[2021-09-06 12:43] VITALS: BMI 19.2
--- NOTE | 2023-10-08 12:46 | DI.US.S_ITS ---
LIMITED ULTRASOUND OF RIGHT BREAST AND AXILLA: 10/08/2023 CLINICAL: Follow up right breast BR3 probably benign finding. Comparison is made to exams dated: 10/08/2023 mammogram, 04/08/2023 ultrasound, 04/08/2023 mammogram, 06/11/2022 ultrasound, 06/11/2022 mammogram, and 04/20/2022 mammogram - [facility]. Color flow and real-time ultrasound of the right breast 2 o'clock, and axilla regions were performed. Peñaloza scale images of the real-time examination were reviewed. There is a 0.9 x 0.5 x 0.7 cm oval hypoechoic mass at 2 o'clock, 4 cm from the nipple. Previously it measured 0.9 x 0.5 x 0.7 cm on 04/08/2023 and 0.8 cm x 0.7 cm x 0.5 cm on 06/11/2022. Color flow imaging demonstrates no vascularity is present. This corresponds to the mammographic mass. IMPRESSION: PROBABLY BENIGN Right breast 0.9 cm oval circumscribed mass at 2 o'clock, stable since June 2022 when accounting for differences in technique. Finding is probably benign. Recommend follow-up mammogram and ultrasound in 6 months to demonstrate over 1 year stability. Patient will be due for bilateral mammogram at that time. Findings and recommendations were conveyed to the patient during today's evaluation. This exam was interpreted at Station ID: [id number]. Electronically Signed By: Zo Arroyo M.D., Ph.D. eb/:10/08/2023 15:22:40 letter sent: Followup Recommended Ultrasound BI-RADS: 3 Probably benign
--- NOTE | 2023-10-08 12:46 | DI.MG.S_ITS ---
UNILATERAL RIGHT DIGITAL DIAGNOSTIC MAMMOGRAM 3D/2D SHORT-TERM FOLLOW-UP: 10/08/2023 CLINICAL: Patient returns for a 6 month follow up of the right breast. Comparison is made to exams dated: 04/08/2023 ultrasound, 04/08/2023 mammogram, 06/11/2022 mammogram, and 04/20/2022 mammogram - [facility]. The right breast is heterogeneously dense, which may obscure small masses (category c / 51-75% glandular tissue). There is a 1.1 cm oval mass with an obscured margin in the right breast at 3 o'clock middle depth. This corresponds to previously described probably benign ultrasound finding. No other significant masses or calcifications are seen in the breast. IMPRESSION: INCOMPLETE: NEEDS ADDITIONAL IMAGING EVALUATION The 1.1 cm oval mass in the right breast is indeterminate. An ultrasound is recommended for further evaluation and is scheduled to immediately follow this examination. Based on the Tyrer Cuzick model (a risk assessment model) the patient's lifetime risk is 15.5% and her 10 year risk is 8.3%. According to the ACR, ACS, and NCCN guidelines, an annual breast MRI exam along with mammogram is recommended if the patient's lifetime risk is 20% or greater. This exam was interpreted at Station ID: [id number]. NOTE: For mammograms, a report in lay terms will be sent to the patient. Approximately 15% of breast malignancies will not be visualized mammographically. In the management of a palpable breast mass, a negative mammogram must not discourage biopsy of a clinically suspicious lesion. Electronically Signed By: Zo Arroyo M.D., Ph.D. eb/:10/08/2023 13:58:33 ACR BI-RADS Category 0: Incomplete 3340F
== END ==
PROVIDERS: PCP Family Medicine; Referring Provider Family Medicine; Visit Provider Family Medicine
DX: R92.8 Other abnormal and inconclusive findings on diagnostic imaging of breast (principal); N63.12 Unspecified lump in the right breast, upper inner quadrant; R92.333 Mammographic heterogeneous density, bilateral breasts
CPT/HCPCS: 76642; 77065; G0279

== ENCOUNTER → 2023-11-15 08:29 | Outpatient (CLI) | payer MEDICARE, MEDICAID, SELFPAY ==
[2021-09-06 12:43] VITALS: BMI 19.2
--- NOTE | 2023-11-15 09:01 | EKG_ITS ---
[id number] [address] Test Date: 2023-11-15 Pat Name: Marsha Post Department: [facility] Room: Gender: Female [employer]: CAREY : 1955 Requested By: Order Number: [id number] Reading MD: Enmanuel Amador Measurements Intervals Burt Rate: 78 P: 79 WV: 196 QRS: 79 QRSD: 92 T: 74 QT: 390 QTc: 444 Interpretive Statements Normal sinus rhythm Electronically Signed On 11-15-2023 18:01:33 PDT by Enmanuel Amador
[2023-11-15 10:00] LABS: Add Manual Diff / Slide Review NO; Basophils Absolute Auto 0 /uL (0-100); Basophils Percent Auto 0.9 % (0-2); Eosinophils Absolute Auto 200 /uL (0-450); Eosinophils Percent Auto 9.2 % (2-4); Hematocrit 39.1 % (36-46); Hemoglobin 13.1 g/dL (12.0-16.0); Lymphocytes Absolute Auto 1000 /uL (1100-4500); Lymphocytes Percent Auto 38.9 % (25-40); Mean Corpuscular HGB Conc 33.5 % (30-36); Mean Corpuscular Hemoglobin 28.8 PG (26-34); Mean Corpuscular Volume 85.9 fL (80-100); Monocytes Absolute Auto 300 /uL (0-900); Monocytes Percent Auto 12.5 % (3-14); Neutrophils Absolute Auto 1000 /uL (1500-7000); Neutrophils Percent Auto 38.5 % (50-75); Platelet Count 232 X10^3/uL (150-400); Red Blood Cell Count 4.55 X10^6/uL (4.0-5.2); Red Cell Distribution Width 13.9 % (11.6-14.8); White Blood Cell Count 2.6 X10^3/uL (4.5-11.0)
[2023-11-15 10:11] LABS: Albumin 3.9 g/dL (3.5-5.0); BUN Creatinine Ratio 35.7 (6-22); Blood Urea Nitrogen 20 mg/dL (7-17); Calcium 9.3 mg/dL (8.4-10.2); Carbon Dioxide 29 mmol/L (22-32); Chloride 104 mmol/L (98-107); Estimated Glomerular Filt Rate > 60 mL/min (>60); Glucose 97 mg/dL (80-110); HEMOLYSIS < 15 (0-50); Potassium 4.5 mmol/L (3.4-5.1); Sodium 135 mmol/L (137-145)
[2023-11-15 10:18] LABS: Prealbumin 19.2 mg/dL (17.6-36.0)
[2023-11-15 10:44] LABS: Vitamin D 25 Hydroxy (D3) 39.1 ng/mL (30.0-100.0)
[2023-11-15 10:47] LABS: Hemoglobin A1C% w Est Avg Glu 4.8 % (4.0-6.0)
== END ==
PROVIDERS: PCP Family Medicine; Referring Provider Orthopaedic Surgery Adult Reconstructive Orthopaedic Surgery; Visit Provider Orthopaedic Surgery Adult Reconstructive Orthopaedic Surgery
DX: Z01.818 Encounter for other preprocedural examination (principal); R73.9 Hyperglycemia, unspecified; E55.9 Vitamin D deficiency, unspecified; R77.0 Abnormality of albumin; Z01.812 Encounter for preprocedural laboratory examination
CPT/HCPCS: 36415; 80048; 82040; 82306; 83036; 84134; 85025; 93005

== ENCOUNTER 2023-11-20 09:18 | Emergency (ER) | payer MEDICARE, MEDICAID, SELFPAY ==
[2021-09-06 12:43] VITALS: BMI 19.2
[2023-11-20 09:19] VITALS: BP 204/106; PULSE 108; RESP 15; TEMP 36.9; O2SAT 100; BMI 19.5
--- NOTE | 2023-11-20 09:19 | ED.BACK ---
HPI - Back Pain/Injury General Chief Complaint: Back Pain/Injury Stated Complaint: back pain sent from PCP Time Seen by Provider: 11/20/23 09:18 Source: patient, RN notes reviewed and old records reviewed Mode of arrival: Family Vehicle Limitations: no limitations History of Present Illness HPI Narrative: 68-year-old female with history of sciatica, low back pain, migraines, bipolar 1 who presents with complaint of low back pain as well as bug bites. Patient states pain started after she was lifting and moving furniture for her mom several days ago started hurting immediately afterwards but was mild in his progressed over time. She did try a deep tissue massage which he states made it more painful. She describes it kind of the right paraspinal region in the lumbar region. She states it radiates a little bit upwards towards her neck. Patient states no new paresthesias no radiation down her legs, no bowel or bladder incontinence. No fevers or chills. She states she is some bug bites on her back on that right side as well which were present from this weekend. She states she was working a lot in the garden. They come around to the front and down towards her hip. Patient denies any chest pain or shortness of breath. She has had some nausea when the pain is intense. Patient states no vomiting. No lightheadedness or passing out. She is tried Aleve with minimal improvement. Patient reached out to her primary care office who referred her here. States she was scheduled for a knee surgery. Denies any tobacco, alcohol or recreational drugs. Related Data Previous Rx's Medication Instructions Recorded estradiol 10 mcg vaginal tablet See Rx Instructions .Route 02/06/21 .COMPLEX #24 tabs diclofenac sodium 1 % topical gel 4 g topical QID PRN pain (scale 03/20/22 (Arthritis Pain (diclofenac)) score 1-3) #100 grams triamcinolone acetonide 0.1 % 1 applic topical BID PRN rash #30 07/17/22 topical cream grams omeprazole 20 mg capsule,delayed 20 mg PO DAILY #90 caps 02/06/23 release albuterol sulfate 90 mcg/actuation 2 puff inhalation Q6H PRN for 03/05/23 aerosol inhaler wheezing #8.5 grams sumatriptan succinate 100 mg tablet 100 mg PO Q2-4H PRN migraine 04/10/23 headache #14 tabs fluticasone propionate 110 1 puff inhalation BID #12 grams 04/11/23 mcg/actuation HFA aerosol inhaler (Flovent HFA) lamotrigine 100 mg tablet 150 mg (1.5 x 100 mg) PO DAILY 08/01/23 #135 tabs cyclobenzaprine 5 mg tablet 5 mg PO BEDTIME PRN muscle spasm 09/11/23 #10 tabs naproxen 250 mg tablet 250 mg PO BID PRN pain #30 tabs 09/11/23 gabapentin 300 mg capsule 300 mg PO BEDTIME #15 caps 09/12/23 dextroamphetamine-amphetamine 20 20 mg PO BID #60 tabs 10/01/23 mg tablet (Adderall) dextroamphetamine-amphetamine 20 20 mg PO BID #60 tabs 10/14/23 mg tablet (Adderall) dextroamphetamine-amphetamine 20 20 mg PO BID #60 tabs 10/14/23 mg tablet (Adderall) trazodone 50 mg tablet See Rx Instructions .Route 10/14/23 .COMPLEX #14 tabs hydroxyzine HCl 25 mg tablet See Rx Instructions PO .COMPLEX 10/21/23 PRN anxiety #30 tabs estradiol 1 mg tablet 1 mg PO DAILY #90 tabs 11/05/23 hydrocodone 5 mg-acetaminophen 325 1 tab PO Q6H PRN pain #10 tabs 11/20/23 mg tablet Allergies Allergy/AdvReac Type Severity Reaction Status Date / Time No Known Drug Allergies Allergy Verified 11/20/23 09:28 Review of Systems Review of Systems ROS Unobtainable: All systems reviewed & are unremarkable except as noted in HPI and below Patient History Medical History Low back pain potentially associated with radiculopathy Neutropenia Elevated liver enzymes Plantar warts (~2017) Osteoarthritis (~2007) Depression (~2000) Migraines (~1971) Osteoporosis (~2007) Carpal tunnel syndrome Chicken pox (~1960) Ovarian cyst (~2017) Cyst (~2008) Atrophic vaginitis History of endometrial biopsy Hip dysplasia (~1956) DJD (degenerative joint disease) Cervical stenosis (uterine cervix) Postmenopausal bleeding Asthma ADHD (~1962) GERD (gastroesophageal reflux disease) Bipolar 1 disorder (~2000) Surgical History Anesthesia History of hip replacement (~2018) History of arthroscopic knee surgery (~2003) History of appendectomy (~1977) History of hip surgery (~195) History of bilateral salpingo-oophorectomy (BSO) (05/05/18) S/P laparoscopic supracervical hysterectomy (05/05/18) Hx of dilation and curettage Surgery, elective Hx of repair of left rotator cuff Family History Father Dementia Mother Hypertension History of heart disease Grandmother Cancer Grandfather History of heart disease Family/Other Transgender Social History household members: family Smoking Status: Never smoker alcohol intake: current substance use type: does not use Smoking Status: Never smoker alcohol intake frequency: a few times a week Substance Use Type: does not use Exam Narrative Exam Narrative: GENERAL: Alert and oriented x three, thin female in mild distress. HEENT: Head normocephalic, atraumatic, EOMI, pupils reactive, face symmetric, moist mucous membranes NECK: Supple, full range of motion CARDIOVASCULAR: Regular rate and rhythm without murmurs, rubs or gallops. RESPIRATORY: Breath sounds equal bilaterally, no wheezes rales or rhonchi. ABDOMEN: Soft, nontender. Normoactive bowel sounds all 4 quadrants. No guarding or rebound, rigidity, no mass, no pulsatile mass or bruit : No CVA tenderness BACK: No cervical, thoracic or lumbar vertebral point tenderness. Patient has mildly decreased range of motion. Patient's gait is normal. Rectal exam is deferred. Muscle strength is 5/5 in lower extremities, dorsalis pedis and tibialis pulses are 2+ and lower extremities. Sensation is intact in the lower extremities. EXTREMITIES: Normal range of motion, no clubbing or edema. Neurovascularly intact NEUROLOGICAL: Cranial nerves II through XII grossly intact. Moving all extremities SKIN: Warm, dry, no petechiae, patient has some red welts there is a small amount of scabbing at the center no other vesicles, tract from the area of discomfort but tracks across several dermatomes although it stays on the right side does not fit a usual dermatomal pattern on examination. There was no other cellulitis they seemed to be very localized. There is tenderness over the right paraspinal region worse with palpation and some tightness. Initial Vital Signs Initial Vital Signs: Vital Signs Temperature 98.4 F 11/20/23 09:19 Pulse Rate 108 H 11/20/23 09:19 Respiratory Rate 15 11/20/23 09:19 Blood Pressure 204/106 H 11/20/23 09:19 Pulse Oximetry 100 11/20/23 09:19 Oxygen Delivery Method Room Air 11/20/23 09:19 Course Orders Ordered: Discontinued Medications Acetaminophen (Acetaminophen 325 Mg Tablet) 975 mg PO NOW ONE Stop: 11/20/23 09:45 Last Admin: 11/20/23 09:51 Dose: 975 mg Documented By: CTS Vital Signs Vital signs: Vital Signs - 8 hr 11/20/23 09:19 Temperature 98.4 F Pulse Rate 108 H Respiratory Rate 15 Blood Pressure 204/106 H Pulse Oximetry 100 Oxygen Delivery Method Room Air MDM - Back Pain/Injury MDM Narrative Medical decision making narrative: 68-year-old female acute on chronic back pain patient did actually have an x-ray in September of 2023 which showed [id number] multilevel spondylosis and degenerative spondylolisthesis particularly noted in the lumbar region. She has no red flag symptoms necessitating MRI today. She was reproducible pain that is little bit more paraspinal and not over the vertebral body. She does have a rash but does not follow a typical dermatomal pattern for shingles and her pain is reproducible in the localized area and with movement. Patient is quite hypertensive but also very uncomfortable. She drove herself today so she was open to a dose of Tylenol, did not want a shot of Toradol and prefers not to have anything sedating that would require that is someone else give her a ride. Discharge Plan Departure Patient Disposition: Home Clinical Impression: Low back pain Instructions: Low Back Pain Activity Restrictions/Additional Instructions: Follow up with your physician for recheck. You do have a rash but does not follow the typical pattern for shingles, I think this is incidental to your discomfort. You can take Central 1 tablet every 6 hours as needed for pain. You can take this with the leave. This medication can make you sleepy do not drive, perform hazardous activities or make any major decisions while taking it. This medication will make you constipated please take a stool softener once to twice daily until stools are soft and regular. Prescription sent to [facility] in [place]. Please return for fevers, worsening pain new numbness, weakness, loss of bowel or bladder control, difficulty lifting or moving your legs, passing out or other new or concerning changes. Prescriptions: New hydrocodone-acetaminophen 5-325 mg tablet 1 tab PO Q6H PRN (Reason: pain) Qty: 10 0RF No Action estradiol 10 mcg tablet See Rx Instructions .ROUTE .COMPLEX Qty: 24 3RF Dose Instruction: insert 1 tablet vaginally two times a week Rx Instructions: insert 1 tablet vaginally two times a week omeprazole 20 mg capsule,delayed release(DR/EC) 20 mg PO DAILY Qty: 90 3RF albuterol sulfate 90 mcg/actuation HFA aerosol inhaler 2 puff inhalation Q6H PRN (Reason: for wheezing) Qty: 8.5 2RF sumatriptan succinate 100 mg tablet 100 mg PO Q2-4H PRN (Reason: migraine headache) Qty: 14 3RF fluticasone propionate [Flovent HFA] 110 mcg/actuation HFA aerosol inhaler 1 puff inhalation BID Qty: 12 2RF lamotrigine 100 mg tablet 150 mg PO DAILY Qty: 135 3RF gabapentin 300 mg capsule 300 mg PO BEDTIME Qty: 15 0RF dextroamphetamine-amphetamine [Adderall] 20 mg tablet 20 mg PO BID Qty: 60 0RF trazodone 50 mg tablet See Rx Instructions .ROUTE .COMPLEX Qty: 14 0RF Hold Instructions: Pt would like to try hydroxyzine instead Dose Instruction: TAKE 1 TABLET BY MOUTH AT BEDTIME NEEDED FOR SLEEP Rx Instructions: TAKE 1 TABLET BY MOUTH AT BEDTIME NEEDED FOR SLEEP hydroxyzine HCl 25 mg tablet See Rx Instructions PO .COMPLEX PRN (Reason: anxiety) Qty: 30 1RF Rx Instructions: t1/2-1 tab po bid as needed for anxiety estradiol 1 mg tablet 1 mg PO DAILY Qty: 90 2RF dextroamphetamine-amphetamine [Adderall] 20 mg tablet 20 mg PO BID Qty: 60 0RF dextroamphetamine-amphetamine [Adderall] 20 mg tablet 20 mg PO BID Qty: 60 0RF diclofenac sodium [Arthritis Pain (diclofenac)] 1 % gel 4 g topical QID PRN (Reason: pain (scale score 1-3)) Qty: 100 3RF Rx Instructions: apply to single knee, ankle, foot; for foot includes sole/toes/top of foot triamcinolone acetonide 0.1 % cream 1 applic topical BID PRN (Reason: rash) Qty: 30 11RF Rx Instructions: apply to affected areas for a 2 weeks if needed then stop for 1-2 weeks. can repeat as needed. naproxen 250 mg tablet 250 mg PO BID PRN (Reason: pain) Qty: 30 0RF Rx Instructions: Take 1-2 tabs BID cyclobenzaprine 5 mg tablet 5 mg PO BEDTIME PRN (Reason: muscle spasm) Qty: 10 0RF Rx Instructions: Take 1-2 tabs at bedtime PRN Referrals: Leonidas Solorzano MD [Primary Care Provider] - Stand Alone Forms: Patient Portal/API
[2023-11-20] MEDS: ACETAMINOPHEN 325 MG TABLET 975 MG PO (09:51)
== END 2023-11-20 09:54 | disposition home or self-care (01) ==
PROVIDERS: Emergency Provider Emergency Medicine; PCP Family Medicine
DX: M54.50 Low back pain, unspecified (principal); X50.9XXA Other and unspecified overexertion or strenuous movements or postures, initial encounter
CPT/HCPCS: 99282; 99283

== ENCOUNTER 2024-02-10 11:59 | Day surgery (SDC) | payer MEDICARE, MEDICAID, SELFPAY ==
[2021-09-06 12:43] VITALS: BMI 19.2
[2024-01-28 09:42] VITALS: BMI 20.2
[2024-02-10] VITALS (13 sets, daily range): BP systolic 94–163; BP diastolic 58–89; PULSE 64–92; RESP 12–24; TEMP 35.3–36.9; O2SAT 93–100; BMI 19.8
--- NOTE | 2024-02-10 06:00 | DI.RAD.S_ITS ---
PROCEDURE: XR KNEE LT 1TO2V INDICATIONS: TKA TECHNIQUE: 2 view(s) of the knee acquired. COMPARISON: [facility] NICOLA [facility], XR BONE LENGTH SCANOGRAM, 02/05/2024, 13:17. FINDINGS: Bones: Patient is status post knee joint arthroplasty. Hardware components are in expected positions. Visualized bony structures are intact. Soft tissues: Overlying postoperative changes are noted. IMPRESSION: Expected immediate postoperative appearance, status post total left knee arthroplasty. Dictated by: Josh Yates M.D. on 02/10/2024 at 16:28 Approved by: Josh Yates M.D. on 02/10/2024 at 16:29
[2024-02-10] MEDS: MELOXICAM 7.5 MG TABLET 15 MG PO (12:46)
[2024-02-10] MEDS: LACTATED RINGERS 1,000 ML 42 ML IV ×2 (12:46→14:56)
[2024-02-10] MEDS: ACETAMINOPHEN 325 MG TABLET 975 MG PO (12:47)
--- NOTE | 2024-02-10 13:26 | PM.PREOP ---
Pre-operative Note Interval Note History & Physical reviewed/Exam performed by Physician: Yes Changes to H&P: No
[2024-02-10] MEDS: CEFAZOLIN 2 GM/100 ML PREMIX 100 ML IV ×2 (13:29→21:53)
[2024-02-10] MEDS: TRANEXAMIC ACID 1,000 MG VIAL 2000 MG INJ ×2 (13:42→15:25)
--- NOTE | 2024-02-10 14:08 | SUR.OPER ---
Supine on padded OR bed. Pillow under head, arms secured on padded armboards <90 degree abduction. Safety belt across torso. Non-operative leg secured with tape over blanket over lower leg. Operative leg secured in /Beni positioner. Foam padded brace at thigh of operative leg.
[2024-02-10] MEDS: ROPIVACAINE/EPI/CLONIDINE/KET 50 ML SYRINGE INJ (14:13)
--- NOTE | 2024-02-10 15:32 | PM.OP.1 ---
Operative Date/Time/Diagnoses Date of procedure: 02/10/24 Pre-op diagnosis: Left knee osteoarthritis Post-op diagnosis: same Procedure & Clinicians Procedure: Left total knee arthroplasty Same procedure as scheduled: Yes Surgeon: Niranjan Florentino Personal Attendant: Evelyne Vigil Anesthesia Type: Spinal, Sedation and Local Operative Notes Estimated Blood Loss (mL): 150 Procedure in detail: Left Gap-Balanced Mary Persona Medial-Congruent Primary Total Knee Arthroplasty Implants: Size 5 Cruciate Retaining Femoral Component Size C Tibial Component Size 16 Medial Congruent Polyethylene Insert Unresurfaced Patella Procedure Summary: This 68-year-old female patient is very slender and had relatively lax soft tissues as well as fairly poor bone quality. I performed relatively minimal cuts, a +0 cut on the distal femur and a +4 cut on the proximal tibia. After these resections I noted that she opened to 12 mm was only 40 lb of pressure which indicated to me that her soft tissue laxity would likely necessitate a larger polyethylene insert at the conclusion of the case. She was tighter medially than laterally initially, although she opened up to 7 medially and 11 laterally and I took this is an indication more of lateral-sided laxity than of medial sided tightness. I therefore did not perform a release. During initial trialing she had some relative laxity of the lateral side relative to the medial side however after I had upsized her to a 16 mm polyethylene this resolved the terminal lateral-sided laxity. Femoral rotation was set at 13? which resulted in a balanced flexion gap. She has a history of what I believe to have been a femoral derotational osteotomy bilaterally in childhood. She reports a history of hip dysplasia and believed that this sounded correct although I would did not have access to any operative records and she could not recall the exact details as it had occurred in her childhood. This may have had something to do with her relatively significant femoral rotation that was required to achieve a balanced flexion gap. The patella tracked well in the trochlear groove. Procedure in Detail: This patient was seen preoperatively and evaluated for knee pain which was refractory to numerous nonoperative treatment modalities. Their pain correlated with radiographic changes demonstrating significant degeneration in the knee joint. The risks and benefits of continued nonoperative management versus operative management were discussed at length and all of the patient?s questions were answered. Additional educational materials providing further details beyond our discussion in clinic were provided via a publicly available patient education video which included the incidence of medical complications associated with total knee arthroplasty, reasons for revision following total knee arthroplasty, and patient satisfaction rates following total knee arthroplasty. That video can be accessed at [email or web address] . With this understanding of the risks inherent to the procedure, the patient elected to move forward with operative management. Following preoperative optimization, the patient was scheduled for surgery. The patient was met in the preoperative holding area the day of the procedure and all questions were answered. The patient?s nares were swabbed with betadine in order to decolonize them from MRSA. Informed consent was signed and the left limb was marked with indelible ink.? The patient was brought back to the operating room where anesthesia was induced. The patient was transferred to the operating table and all bony prominences were padded. The operative site was prepped and draped in the usual sterile fashion. A second prep stick was utilized following drape placement. The incision was marked corresponding to the medial aspect of the tibial tubercle and the patella. Ioban was wrapped circumferentially around the knee. Prior to incision, tranexamic acid and cefazolin were administered. Templating images were displayed. A timeout procedure was performed verifying the patient?s identity, medical comorbidities, allergies, relevant medications, anesthesia type and the surgical plan. All present were in agreement. The assistance of a physician library assistant was required for positioning, room setup, soft tissue retraction and wound closure. Without this assistance, the procedure would have been significantly more challenging and time consuming.?? The tourniquet was inflated prior to incision. I made an anterior incision over the knee, dissected through the subcutaneous tissues and identified the lateral border of the VMO. Medial and lateral soft tissue flaps were developed. A medial parapatellar arthrotomy was performed ensuring that adequate capsular tissue would remain for closure at the conclusion of the procedure. The hip was brought into extension and the medial soft tissues were released off the joint line of the tibia. Tissue overlying the distal anterior femur was released to allow for later assessment for anterior notching but left in place. A portion of the retropatellar fat pad was excised while protecting the patellar tendon. The patella was everted. The patella was not resurfaced. Osteophytes were excised and a lateral facetectomy was performed. The patella was released from its everted position.?? I flexed the knee to 90 degrees and placed retractors to allow access to the notch. An opening reamer was used to gain access to the femoral canal and an intramedullary evette was introduced into the canal. Diaphyseal fit was obtained in order to allow a distal femoral resection at 5 degrees relative to the anatomic axis, thereby aiming to achieve mechanical alignment of the eventual implant. A +0 resection was planned and assessed using an humberto wing. I then made the cut using a sagittal saw. This provided additional access to the femoral notch. The ACL and PCL were excised. Retractors were placed on the lateral and medial tibia. I hyperflexed the knee while externally rotating it to sublux the tibia anteriorly. I placed a PCL retractor posteriorly and used this to provide additional anterior subluxation. The remainder of the PCL root was released. An intramedullary reamer was used in the ACL footprint to provide access to the tibial canal. An extramedullary guide was positioned to allow a resection perpendicular to the anatomic and mechanical axes of the tibia, thereby aiming to achieve mechanical alignment of the eventual implant. A +4 resection off the medial tibia was planned and the tibial cutting jig was pinned in place. I evaluated the cut depth, varus-valgus alignment and slope of the planned tibial resection and deemed them satisfactory. I cut the tibia with a sagittal saw while using retractors to protect the MCL, patellar tendon, and posterolateral structures.? The knee was repositioned in extension and the Fuzion soft tissue balancing gauge was introduced. This demonstrated that there was lateral-sided laxity as that would open to 11, in the medial side was not particularly tight as that would open to 7. I then decided to proceed without a posterior medial release. When 40 pounds of force was applied to the Fuzion device, the extension gap opened to 12 mm. I moved the knee into 90 degrees of flexion, and the Fuzion device was recalibrated by removing a 9 mm yves to allow assessment of the flexion gap. The Fuzion was placed perpendicular to the resected surface of the tibia and the resected surface of the distal femur. Forty pounds of traction was applied to match the tension of the extension gap. This externally rotated the femur to 13 degrees. Pins were placed in the 12 mm holes. The measured resection guide was placed over the pins to allow sizing. Appropriate sizing was determined and a 4-in-1 block was placed. This was double checked using the Fuzion device to ensure that it would open to an equal distance as the extension gap when the same amount of force was applied. The Fuzion block was also used to assess flexion gap symmetry. An humberto wing was used to ensure there would be no anterior notching. Retractors were placed to protect the soft tissues during resection. Captured cuts were performed with a sagittal saw for the anterior and posterior femur as well as the corresponding chamfers.? Trial components were placed and the construct was assessed. Range of motion was assessed by ensuring the knee could achieve full extension and assessing maximum passive knee flexion by elevating the femur and allowing the heel to passively fall towards the buttock. Gap symmetry was assessed by stressing the medial and lateral compartments in both extension and flexion. Laxity was assessed in both extension and flexion and the polyethylene trial was adjusted with shims as necessary. Patellar tracking was assessed with knee flexion. Once satisfied with the construct, I moved forward with implant insertion. Lug holes were drilled in the femur and the tibia was prepped ensuring appropriate sizing and rotation relative to the tibial tubercle.?? The bony ends were irrigated and cement was prepared. Portions of the anterior chamfer cut were utilized as cement restrictors in the femur and tibia where intramedullar rods had been utilized. Cement was placed on the entirety of the undersurface of both the tibial and femoral components. Cement was placed onto the dry tibia and pressurized into the cancellous bone. I impacted the tibial component into place. Cement was removed. The tibia was reduced underneath the femur and placed cement onto the dry surface of the resected femur. I placed the femoral component as well as the intended polyethylene trial. Cement was removed from around the femur. I brought the knee into extension and manually pressurized the construct by pushing on the heel while the cement dried. The knee was bathed in a dilute mixture of betadine and peroxide. A mixture of Ropivacaine, Epinephrine, Clonidine and Toradol was infiltrated throughout the soft tissues into structures including the VMO, patellar tendon, quadriceps tendon, MCL and femoral periosteum. A low adductor canal block was also performed using this mixture unless one had been placed preoperatively by anesthesia. The knee was copiously irrigated with pulse lavage. Once cement had been allowed to dry the knee was again trialed. Range of motion was assessed by ensuring the knee could achieve full extension and assessing maximum passive knee flexion by elevating the femur and allowing the heel to passively fall towards the buttock. Gap symmetry was assessed by stressing the medial and lateral compartments in both extension and flexion. Laxity was assessed in both extension and flexion and the polyethylene trial was adjusted with shims as necessary. Patellar tracking was assessed with knee flexion. The tourniquet was let down and the polyethylene trial was removed. I inspected the knee inspected for excess cement and any residual bleeding. Once hemostasis was achieved I inserted the final polyethylene and ensured appropriate engagement of the dovetail locking mechanism.?? The arthrotomy was closed with absorbable interrupted suture ensuring that this extended to the top of the arthrotomy. This was backed up with running barbed suture throughout the arthrotomy. The skin was closed with 2-0 and 3-0 sutures. Surgical glue was applied and a soft dressing was placed.?The sponge, instrument and needle counts were reported as being correct at the end of the case.??No obvious complications occurred. The patient was transferred from the operating table back to a stretcher. The patient emerged from anesthesia without difficulty and was taken to the PACU in a stable condition.? Plan for aftercare: Weightbearing as tolerated Mobilization as soon as the patient has recovered from anesthesia. If physical therapists are unavailable at the time the patient is ready to ambulate, then nursing staff should help patient ambulate Aspirin 81 twice per day for DVT prophylaxis Multimodal pain regimen with no IV opioids ordered Anticipate discharge home tomorrow Follow up at [facility] in 2 weeks Detailed postoperative instructions available at [email or web address]
[2024-02-10] MEDS: OXYCODONE IR 5 MG TABLET PO ×3 (16:04→20:49)
[2024-02-10] MEDS: HYDROMORPHONE 1 MG INJ IV (16:14)
--- NOTE | 2024-02-10 16:19 | P.PN_ITS ---
Subjective Subjective Interval history: I checked on Marsha in the PACU. She is recovering well. She is comfortable at this time. The spinal anesthetic is still in effect. Her motor function is limited accordingly with corresponding sensory numbness. Radiographs were obtained which were as expected and did not show any concerning features. We will plan to have her mobilize tomorrow and discharge home tomorrow. I spoke with her family member who will be her postoperative caregiver to provide counseling regarding her initial postoperative recovery. Exam Vital Signs (past 8 hours): - 02/10/24 12:26 02/10/24 15:51 02/10/24 15:56 Temperature 97.5 F L 97.1 F L Pulse Rate 90 88 80 Respiratory Rate 24 20 14 Blood Pressure 163/86 H 99/63 103/66 Pulse Oximetry 100 96 97 Oxygen Delivery Method Room Air Room Air Room Air 02/10/24 16:01 02/10/24 16:06 02/10/24 16:15 Temperature Pulse Rate 92 H 76 69 Respiratory Rate 17 15 13 Blood Pressure 94/58 L 108/68 113/69 Pulse Oximetry 98 98 98 Oxygen Delivery Method Room Air Room Air Room Air Oxygen Delivery Method Room Air [facility] Medical History Low back pain potentially associated with radiculopathy Neutropenia Elevated liver enzymes Plantar warts (~2017) Osteoarthritis (~2007) Depression (~2000) Migraines (~1971) Osteoporosis (~2007) Carpal tunnel syndrome Chicken pox (~1960) Ovarian cyst (~2017) Cyst (~2008) Atrophic vaginitis History of endometrial biopsy Hip dysplasia (~1956) DJD (degenerative joint disease) Cervical stenosis (uterine cervix) Postmenopausal bleeding Asthma ADHD (~1962) GERD (gastroesophageal reflux disease) Bipolar 1 disorder (~2000) Surgical History Anesthesia History of hip replacement (~2018) History of arthroscopic knee surgery (~2003) History of appendectomy (~1977) History of hip surgery (~1958) History of bilateral salpingo-oophorectomy (BSO) (05/05/18) S/P laparoscopic supracervical hysterectomy (05/05/18) Hx of dilation and curettage Surgery, elective Hx of repair of left rotator cuff Family History Father Dementia Mother Hypertension History of heart disease Grandmother Cancer Grandfather History of heart disease Family/Other Transgender Social History household members: family Smoking Status: Never smoker alcohol intake: current substance use type: does not use Assessment & Plan Time-Based Coding :: [TOTAL MINUTES] spent with patient and on the chart (including review of chart, obtaining history, exam, reviewing outside data, placing orders, documenting exam and treatment plan, and counseling patient) on [DATE].
--- NOTE | 2024-02-10 17:00 | PC.NURSE ---
Patient arrived to Acute Care floor at 1645 this afternoon. She is awake A&Ox4. She rates her current pain level at 7/10. She is tolerating po intake well. VSS, afebrile on RA. She is oriented to the room, IVF running LR at 100ml/hr, SCD's on, +CMS to BLE's, POSTOP VS, frequent rounding. Due to Void at 2200 this evening.
[2024-02-10] MEDS: LACTATED RINGERS 1,000 ML 100 ML IV (17:16)
[2024-02-10] MEDS: ACETAMINOPHEN 325 MG TABLET 650 MG PO ×2 (17:18→21:52)
[2024-02-10] MEDS: IBUPROFEN 600 MG TABLET PO (17:18)
[2024-02-10] MEDS: DOCUSATE 100 MG CAPSULE PO (20:49)
[2024-02-10] MEDS: ASPIRIN EC 81 MG TABLET PO (20:49)
[2024-02-10] MEDS: hydrOXYzine HCL 25 MG TABLET 37.5 MG PO (20:50)
[2024-02-11] MEDS: OXYCODONE IR 5 MG TABLET PO ×7 (00:43→21:29)
[2024-02-11] MEDS: IBUPROFEN 600 MG TABLET PO ×5 (00:43→23:16)
[2024-02-11] MEDS: CEFAZOLIN 2 GM/100 ML PREMIX 100 ML IV (04:59)
[2024-02-11] MEDS: ACETAMINOPHEN 325 MG TABLET 650 MG PO ×4 (04:59→23:16)
[2024-02-11] MEDS: LACTATED RINGERS 1,000 ML 100 ML IV (05:00)
[2024-02-11] MEDS: PANTOPRAZOLE DR 20 MG TABLET PO (06:11)
[2024-02-11 06:42] LABS: Hematocrit 32.8 % (36-46)
--- NOTE | 2024-02-11 07:57 | P.DS_ITS ---
History of Present Illness History of Present Illness Date Patient Seen: 02/11/24 Time Patient Seen: 07:58 Chief complaint: Knee pain Narrative: See progress note Discharge Providers Provider Discharge Date: 02/11/24 Primary care physician: Leonidas Solorzano MD Consults: 02/10/24 06:00 Consult to Anesthesiology Routine Comment: Consulting Provider: Anesthesiologist Reason for consultation: Regional block for post operative pain control 02/10/24 16:49 Consult to Discharge Planning Routine Comment: Consult to Physical Therapy Evaluate & Treat Comment: Physician Instructions: postop TKA protocol Discharge provider: Dameon Doshi PA-C Summary Hospital Course Discharge Diagnosis: Left knee osteoarthritis Hospital Course: Left total knee arthroplasty Same procedure as scheduled: Yes Surgeon: Niranjan Florentino Boatswain Mate: Evelyne Vigil Anesthesia Type: Spinal, Sedation and Local Operative Notes Estimated Blood Loss (mL): 150 Procedure in detail: Left Gap-Balanced Mary Persona Medial-Congruent Primary Total Knee Arthroplasty Implants: * Size 5 Cruciate Retaining Femoral Component * Size C Tibial Component * Size 16 Medial Congruent Polyethylene Insert * Unresurfaced Patella Patient admitted to the hospital for left total knee arthroplasty. Patient consented to the same. Patient left total knee arthroplasty February 09. Patient back in her room recovery in stable condition. Weightbearing as tolerated. Aspirin 81 mg b.i.d.. Multimodal pain management. Discharge home today after physical therapy if safe for home environment Status at Discharge Cognitive/behavioral status at discharge: at baseline, oriented Functional status at discharge: uses cane/walker Overall status at discharge: patient is progressing back to baseline Exam Vital Signs (past 8 hours): Oxygen Delivery Method Room Air Oxygen Flow Rate 0 Narrative Exam Narrative: See progress note Objective Labs 02/11/24 06:00 Labs: Laboratory Results - last 24 hr 02/11/24 06:00 Hgb 11.0 L Hct 32.8 L PFSH Medical History Low back pain potentially associated with radiculopathy Neutropenia Elevated liver enzymes Plantar warts (~2017) Osteoarthritis (~2007) Depression (~2000) Migraines (~1971) Osteoporosis (~2007) Carpal tunnel syndrome Chicken pox (~1960) Ovarian cyst (~2017) Cyst (~2008) Atrophic vaginitis History of endometrial biopsy Hip dysplasia (~1956) DJD (degenerative joint disease) Cervical stenosis (uterine cervix) Postmenopausal bleeding Asthma ADHD (~1962) GERD (gastroesophageal reflux disease) Bipolar 1 disorder (~2000) Surgical History Anesthesia History of hip replacement (~2018) History of arthroscopic knee surgery (~2003) History of appendectomy (~1977) History of hip surgery (~1958) History of bilateral salpingo-oophorectomy (BSO) (05/05/18) S/P laparoscopic supracervical hysterectomy (05/05/18) Hx of dilation and curettage Surgery, elective Hx of repair of left rotator cuff Family History Father Dementia Mother Hypertension History of heart disease Grandmother Cancer Grandfather History of heart disease Family/Other Transgender Social History household members: family Smoking Status: Never smoker alcohol intake: current substance use type: does not use Discharge Assessment & Plan Assessment and Plan Assessment: Progressing as expected Plan of Treatment: * Weightbearing as tolerated * Mobilization as soon as the patient has recovered from anesthesia. If physical therapists are unavailable at the time the patient is ready to ambulate, then nursing staff should help patient ambulate * Aspirin 81 twice per day for DVT prophylaxis * Multimodal pain regimen with no IV opioids ordered * Anticipate discharge home tomorrow * Follow up at [facility] in 2 weeks * Detailed postoperative instructions available at [email or web address] * Discharge home today after physical therapy if safe for home environment. Discharge Plan Discharge Plan Patient Disposition: Home Discharge orders & Medications Discharge Orders: Discharge (Order); Ordered 02/11/24 Ordered By: Dameon Doshi Prescriptions: New acetaminophen 325 mg Tablet 650 mg PO Q6H Qty: 60 0RF aspirin 81 mg Tablet,Delayed Release (Dr/Ec) 81 mg PO BID Qty: 60 0RF polyethylene glycol 3350 17 gram Powder In Packet 17 g PO DAILY PRN (Reason: Constipation) Qty: 14 0RF ibuprofen 600 mg Tablet 600 mg PO Q6H Qty: 60 0RF Continued albuterol sulfate 90 mcg/actuation HFA aerosol inhaler 2 puff inhalation Q6H PRN (Reason: for wheezing) Qty: 8.5 2RF sumatriptan succinate 100 mg tablet 100 mg PO Q2-4H PRN (Reason: migraine headache) Qty: 14 3RF lamotrigine 100 mg tablet 150 mg PO DAILY Qty: 135 3RF estradiol 1 mg tablet 1 mg PO DAILY Qty: 90 2RF dextroamphetamine-amphetamine [Adderall] 20 mg tablet 20 mg PO BID Qty: 60 0RF omeprazole 20 mg capsule,delayed release(DR/EC) 20 mg PO DAILY Qty: 90 0RF diclofenac sodium [Arthritis Pain (diclofenac)] 1 % gel 4 g topical QID PRN (Reason: pain (scale score 1-3)) Qty: 100 3RF Rx Instructions: apply to single knee, ankle, foot; for foot includes sole/toes/top of foot triamcinolone acetonide 0.1 % cream 1 applic topical BID PRN (Reason: rash) Qty: 30 11RF Rx Instructions: apply to affected areas for a 2 weeks if needed then stop for 1-2 weeks. can repeat as needed. fluticasone propionate 110 mcg/actuation Hfa Aerosol Inhaler 1 puff INHALATION BID PRN (Reason: asthma) hydroxyzine HCl 25 mg tablet 37.5 mg PO PRN PRN (Reason: Sleep) Follow up/Referrals: Leonidas Solorzano MD [Primary Care Provider] - Niranjan Florentino MD [Physician] - 02/20/24 4:20 pm (Follow up w/ Evelyne Vigil PA-C, at [facility] office in [place].) Diet/Activity/Treatments Diet: Diet as Tolerated Activity: Weightbearing as tolerated. Walk frequently! Cold/Heat Therapy: Ice to knee as needed for pain. Skin/Wound/Dressing Care Report to your healthcare provider any signs of infection, such as:: chills, fever, night sweats, unusual drainage and unusual redness Dressing: May remove JUSTYNA wrap and cotton padding and shower on 02/12/2024. Leave dressing in place until follow up in office. No bathing or otherwise soaking incision. Call the office if the dressing becomes saturated inside. Visit Report/Discharge Packet Instructions: DI for Knee Replacement Stand Alone Forms: Patient Portal/API, Surgery Discharge Discharge Data Primary Care Provider: Leonidas Solorzano Attending Provider: Niranjan Florentino VTE Deep Vein Thrombosis/Pulmonary Embolism Present on Admission: No
[2024-02-11 08:00] VITALS: BP 117/61; PULSE 66; RESP 16; TEMP 36.2; O2SAT 97
[2024-02-11] MEDS: ONDANSETRON 4 MG ODT PO (08:21)
[2024-02-11] MEDS: hydrOXYzine HCL 25 MG TABLET 37.5 MG PO ×3 (08:48→21:28)
[2024-02-11] MEDS: estradioL 1 MG TABLET PO (08:48)
[2024-02-11] MEDS: ASPIRIN EC 81 MG TABLET PO ×2 (08:48→21:28)
[2024-02-11] MEDS: lamoTRIgine 100 MG TABLET 150 MG PO (08:49)
[2024-02-11] MEDS: DOCUSATE 100 MG CAPSULE PO ×2 (08:49→21:28)
[2024-02-11] MEDS: SODIUM CHLORIDE 0.9% FLUSH 10 ML IV ×2 (09:00→21:31)
--- NOTE | 2024-02-11 09:30 | PT.IIE ---
Current Diagnoses Unilateral primary osteoarthritis, left knee (02/10/24) Surgery Performed Operation Date: 02/10/24 13:45 Actual Procedures p Total Knee Arthroplasty(Left) - Niranjan Florentino MD Surgical History (Last Reviewed 11/20/23 @ 09:39 by Nathalia Neumann DO) Anesthesia History of appendectomy (~1977) History of arthroscopic knee surgery (~2003) History of bilateral salpingo-oophorectomy (BSO) (05/05/18) History of hip replacement (~2018) History of hip surgery (~1958) Hx of dilation and curettage Hx of repair of left rotator cuff S/P laparoscopic supracervical hysterectomy (05/05/18) Surgery, elective Medical History (Last Reviewed 11/20/23 @ 09:39 by Nathalia Neumann DO) ADHD (~1962) Asthma Atrophic vaginitis Bipolar 1 disorder (~2000) Carpal tunnel syndrome Cervical stenosis (uterine cervix) Chicken pox (~1960) Cyst (~2008) Depression (~2000) DJD (degenerative joint disease) Elevated liver enzymes GERD (gastroesophageal reflux disease) Hip dysplasia (~1956) History of endometrial biopsy Low back pain potentially associated with radiculopathy Migraines (~1971) Neutropenia Osteoarthritis (~2007) Osteoporosis (~2007) Ovarian cyst (~2017) Plantar warts (~2017) Postmenopausal bleeding Physical Therapy Inpatient Evaluation/Re-Eval M1 PT/OT-IP Prior Functional Status Start: 02/11/24 12:24 Freq: NEEDED Status: Active Protocol: Document 02/11/24 09:30 AB (Rec: 02/11/24 12:39 AB [id number]) Medical Review Prior Functional Status Medical History Reviewed Yes Communication able to make needs known Mobility and Gait pt stated that she was independent with all mobilities and ambulation without AD Social History Household Members family Living Arrangements House Number of Floors (Floors) Two Floors Number of Stairs To Enter/Railing? no steps to enter but have 16 steps B rails to go down to her living area Home Environment Standard Height Toilet,Tub/ Shower Home Equipment Front Wheel Walker,Raised Toilet Seat w/Armrests,Shower Seat with Backrest,Hand Held Shower,Grab Bars Near Toilet, Grab Bars In Shower Additional Social History Comment pt lives with her mother but her mother will not be able to assist her; stated that her nephew will be staying with her for a few days to assist her M2 PT-IP Current Condition Start: 02/11/24 12:24 Freq: NEEDED Status: Active Protocol: Document 02/11/24 09:30 AB (Rec: 02/11/24 12:39 AB [id number]) Physical Therapy Current Condition Current Condition Evaluation Date 02/11/24 Treatment Diagnosis s/p L TKA; difficulty in walking Onset Date 02/10/24 M3 PT-IP Subjective Start: 02/11/24 12:24 Freq: NEEDED Status: Active Protocol: Document 02/11/24 09:30 AB (Rec: 02/11/24 12:39 AB [id number]) Subjective Physical Therapy Visit Type Type Initial Evaluation Visit Start Time 09:30 Visit Stop Time 10:15 Number of GRINDING WHEEL INSPECTOR Visits 0 Physical Therapy Visit Comments Patient Comments agreeable to do PT; c/o increase L knee pain Therapy Pain Assessment Pain When Pain Assessed At Rest Pain Present Pain Present Pain Reported Location left knee Intensity 8 Scale Used increases with movement Pain Behaviors Crying,Guarding,Holding Area, Wincing Pain Management Techniques Apply Cold,Distraction, Elevation,Modification of Treatment,Re-positioning, Timing of Activity with Medications M4 PT-IP Mobility and Gait Start: 02/11/24 12:24 Freq: NEEDED Status: Active Protocol: Document 02/11/24 09:30 AB (Rec: 02/11/24 12:39 AB [id number]) PT-Bed Mobility Assessment Supine to Sit Supine to Sit Minimal Assistance PT-Transfer Assessment Sit to and From Stand Sit to and from Stand Moderate Assistance,1 Person Assistance,Use of Upper Extremities Equipment Transfer Assistive Device Gait Belt,Front Wheeled Walker Orthotic/Prosthetic Devices or Brace: No Transfers Transfer Destination Chair Transfer Technique ambulated Transfer Ability Level of Assist Minimal Assistance,Moderate Assistance,1 Person Assistance ,Use of Upper Extremities Comments Mobility Comments pt supine in bed and agreeable to do PT. pt c/o increase L knee pain. obtained PLOF and home set up. post-op folder provided and reviewed contents . BP in supine: 131/77. pt completed supine to sit min A and max cues for techniques. pt able to sit on EOB CGA. BP in sittin/62. completed sit to stand mod A and max cues. pt ambulated ~ 15 ft using FWW min to mod A and max cues. pt presents with initial L knee slight buckling during walking requiring mod A. cued pt on quads activation and was able to walk min A. c/o feeling faint midway with ambulation. pt sat on the chair. BP checked: 109/78. positioned pt on the chair. call light and table placed within reach. nurse not available and PT talked to NAC to inform regarding pt's decrease BP. Gait Assessment Gait Gait Assistance Required: Minimum Assistance,Moderate Assistance Distance (Feet) 15 Able to Maintain Weight Bearing Status Yes During Gait Assistive Devices Assistive Device Gait Belt,Front Wheeled Walker Orthotic/Prosthetic Devices or Brace: No Gait Deviations General Gait Pattern Decreased Stride Length, Decreased Feet Clearance,Step- to Gait Factors Limiting Gait Function Factors Limiting Gait Function Decreased Activity Tolerance, Decreased Strength,Difficulty Following Directions,Limited Range of Motion,Pain,Poor Balance,Poor Safety Awareness PT-Balance Assessment Sitting Balance and Reactions Static Sitting Balance Ability Good Dynamic Sitting Balance Ability Fair Standing Balance and Reactions Static Standing Balance Ability Poor Dynamic Standing Balance Ability Poor Device Used FWW M5 PT-IP Objective Assessments Start: 02/11/24 12:24 Freq: NEEDED Status: Active Protocol: Document 02/11/24 09:30 AB (Rec: 02/11/24 12:39 AB [id number]) Orientation Orientation/Cognition Level of Alertness Alert Language Function Ability Hard of Hearing Safety Awareness Decreased Safety Awareness Memory Description Short Term Impaired Gross Range of Motion Lower Extremity ROM Assessment Left Impaired Impairments L knee flexion: ~ 50 deg L knee extnesion: ~ 25 deg less to 0 Strength Lower Extremity Strength Assessment Left Impaired Knee 3+/5 Coordination Assessment Gross Coordination Gross Coordination WNL Sensation Assessment Sensation Gross Sensation WNL Muscle Tone Muscle Tone WNL Yes M6 PT-IP Treatment Start: 02/11/24 12:24 Freq: NEEDED Status: Active Protocol: Document 02/11/24 09:30 AB (Rec: 02/11/24 12:39 AB [id number]) Physical Therapy Treatment Exercises Exercises Heel Slides Education Education Provided Precautions,Weight Bearing Status,Post-Op Packet,Safety M7 PT-IP Assessment and Plan Start: 02/11/24 12:24 Freq: NEEDED Status: Active Protocol: Document 02/11/24 09:30 AB (Rec: 02/11/24 12:39 AB [id number]) PT Summary Assessment and Plan Potential Rehabilitation Potential Fair Status of Condition at Evaluation Evolving Summary Impairments Pain,ROM,Strength,Balance, Coordination,Sensation,Tone, Cognition,Bed Mobility, Transfers,Gait,Activity Tolerance Assessment Summary pt is a 68 y/o F s/p L TKA POD 1. pt is WBAT on LLE. pt requiring min to mod A with mobility using FWW but unable to tolerate much activity this morning with decrease in BP from 131/77 in supine to 109/ 78 after ambulation. pt with c /o feeling faint during ambulation. pt plans to go home and will have her nephew to assist her for a few days. caregiver training set up at 130pm today. will continue to assess. Goals Bed Mobility Goal Independent Transfer Goal Independent,Front Wheeled Walker Gait Goal Independent,Front Wheel Walker Gait Distance 200 Other Goals up/odnw 16 stesp B rails SBA Days to Meet Goals 10 Frequency of Treatment Frequency Of Treatment Twice a Day Treatment Plan Physical Therapy Treatment Plan Bed Mobility Training,Transfer Training,Gait Training, Therapeutic Exercise,Balance Retraining,Post Op Education, Discharge Planning,Hot or Cold Pack,Neuromuscular Re-ed, Coordination Retraining,Manual Therapy Other Recommendations and Next Treatment caregiver trainin pm 12/ Focus 10 Weight Bearing Status Weight Bearing Status Weight Bear as Tolerated Allowed Weight Bearing Amount (enter % LLE WBAT or #) (%) Recommendations To Nursing Amount of Assist Needed 1 Person Assist Discharge Recommendations PT Discharge Recommendations Home with 24/09 Assist Available,Home Health Transportation Needs at Discharge Private Vehicle
--- NOTE | 2024-02-11 11:22 | CM.DANOTE ---
Initial DCP Assessment Visit Note Reviewed EMR and team rounds for pt's medical status and updates. Pt resides in her own home with her mother here in [place], she is independent at baseline. Her nephew will be transporting her home later today after she works with PT, and will stay the first 24-hours with her in order to assist her with postoperative care needs. Payor: [facility] Attending: Dr. Florentino Pt is a 68-year-old F post-op day 1 following her L-sided knee arthroplasty surgery. Very little information was available to understand her pre-surgery functional status. She has done well postoperatively, and is planning to d/c home later today, she has been medically cleared by Ortho for d/c. She has a plan for Ortho f/u, and has requested a referral to Home Health, [facility] chosen as her preference. No further d/c needs for CM indicated at this time. Discharge Planning/Care Management Advanced directive, confirm from FAMILY Start: 02/10/24 16:59 Freq: Q24H Status: Active Protocol: Document 02/10/24 20:55 BR (Rec: 02/10/24 20:59 BR [id number]) Advance Directive, confirm on record Time 20:55 Person contacted pt Copy received No CM Discharge Assessment Start: 02/11/24 08:52 Freq: Status: Active Protocol: Document 02/11/24 11:11 DPL (Rec: 02/11/24 11:21 DPL [id number]) Discharge Planning Assessment Assigned Sales Service Coordinator TOMAS Mayen Advance Directives? Yes Advance Directives on File No History Provided By Patient,Medical Record Has Patient been admitted in last 30 No days? Prior Living Arrangements Apartment/Condo Household Members family Comment Pt's nephew will be caring for pt post d/c. Type of transporation used prior to Drives own vehicle admit Independent with ADL's Yes Is patient alert and oriented? Yes Caregiver for Another No DME Already Rented / Owned FWW / Walker,Cane Patient/Family Preference Home with Home Health Barriers to Discharge No Discharge Plan Home Community Services Physical Therapy,Occupational Therapy Referrals Initiated Home Health If patient plan is home with home health Yes : Has signed face to face form been completed? Medicare Choice List Provided Yes Medicare choice list reviewed on patient electronic tablet with SNF/HH Preference [facility] Has Agency SNF been contacted Yes Whiteboard Updated in Patient Room with Yes name and ext. # of Sales Service Coordinator Review Status In Process Please Provide Date Initial DC 02/11/24 Assessment Was Performed Pre-Anesthesia Assessment Start: 01/28/24 09:42 Freq: Status: Active Protocol: Document 01/28/24 09:42 LB (Rec: 01/28/24 10:26 LB [id number]) Pre-Anesthesia Assessment PAC Comment 01/28/24 Phone assessment. Patient Information Reviewed Via Phone Assessment Assessment Completed With Patient Diagnostic Results BMP/CMP,CBC,EKG Comment 11/15/23 at . Primary Care Provider Leonidas Solorzano Medical Clearance Received Yes Seen Specialist in Last 12 Months Yes Specialist Seen Emergency,Orthopedist Primary Language Cymraes Preferred Language [place]ym[place] Alarm Technician Required No Height 162.56 cm Weight 53.524 kg Body Mass Index (BMI) 20.2 Hearing Ability Normal Visual Assist Glasses Dentition Type Teeth, Natural Present Barriers to Learning None Comment Glasses for reading. Hx Anesthesia Reactions Yes: PONV with hip replacement . Hx Family Anesthesia Reaction No Hx Malignant Hyperthermia No Hx Blood Transfusions No Anesthesia Review Requested No Analytical Chemist No alcohol intake current alcohol intake frequency a few times a week Smoking Status Never smoker Substance Use Type does not use Pain Present Pain Reported Comment Left knee. Musculoskeletal Symptoms Joint Pain History of Falling (Recent or History of Yes ) Comment Knee gives out or locks. Patient is completely paralyzed or No completely immobile Mental Status Oriented to own ability Comment Will bring walker. Is patient on oxygen? No Does patient have ASHTON/SOB Hx of Asthma Hx Sleep Apnea No Currently Taking a Beta [place] No Can You Climb a Flight of Stairs Without Yes SOB Hx Chest Pain No Hx SOB Yes: Related to asthma. Hx Syncope or Dizziness No Anti-Coagulant Therapy No Cardiac Testing No Hx Pacemaker/ICD No Cardiac Clearance Received Not Applicable Dysphagia No Gastrointestinal Symptoms Reflux Comment Controlled with omeprazole. Bladder Pattern Nocturia Urinary Catheter Present No Hx Urinary Self Catheterization No Diabetes No HgbA1C 4.8 Date 11/15/23 Patient No Lactating No Hx Drug Resistant Organism No Presence of External or Internal Medical Left hip. Devices Have you had any close contact with No someone diagnosed with COVID-19? Are you experiencing any of these No symptoms symptoms? Received a COVID vaccine? Yes Comment Denies covid last 2 months. Lives With family Current Living Arrangements Apartment/Condo Number of Floors (Floors) Two Floors Number of Stairs To Enter/Railing? 16 stairs with railing Support System Family,Friend(s) Does the Patient Have Assistance After Yes: Nephew coming day after Surgery surgery to help pt. Patient Discharge Plan Description Return Home Additional comment Advised overnight LOS. Feels Safe in Current Environment Yes Do you have a plan to hurt yourself or No Plan others? Do You Have Any Spiritual Beliefs That No May Affect Your HC Choices? Do You Have Any Cultural Practices That No May Affect Your HC Choices? Emergency Contact Name Mickie Lieberman - sister Emergency Contact Advance Directives? No PAC Instructions Assistance for 24 hours post- op,Do not shave/clip surgical site,Durable medical equipment ,Medications to take/avoid,No ETOH/petroleum product on skin DOS,NPO,Post-op transportation,Pre-surgical wash,Sensory aids,Sturdy shoes /comfortable clothes,Do not bring valuables and remove jewelry
--- NOTE | 2024-02-11 13:30 | PT.IPTN ---
Current Diagnoses Unilateral primary osteoarthritis, left knee (02/10/24) Surgery Performed Operation Date: 02/10/24 13:45 Actual Procedures p Total Knee Arthroplasty(Left) - Niranjan Florentino MD Physical Therapy Treatment Note M2 PT-IP Current Condition Start: 02/11/24 12:24 Freq: NEEDED Status: Active Protocol: Document 02/11/24 09:30 AB (Rec: 02/11/24 12:39 AB [id number]) Physical Therapy Current Condition Current Condition Evaluation Date 02/11/24 Treatment Diagnosis s/p L TKA; difficulty in walking Onset Date 02/10/24 M3 PT-IP Subjective Start: 02/11/24 12:24 Freq: NEEDED Status: Active Protocol: Document 02/11/24 13:30 AB (Rec: 02/11/24 16:47 AB [id number]) Subjective Physical Therapy Visit Type Type Treatment Note Visit Start Time 13:30 Visit Stop Time 14:20 Number of CONFERENCE TRANSLATOR Visits 0 Physical Therapy Visit Comments Patient Comments agreeable to do PT Therapy Pain Assessment Pain When Pain Assessed At Rest Pain Present Pain Present Pain Reported Location left knee Intensity 4 Scale Used Numeric (0 - 10) Pain Management Techniques Apply Cold,Distraction, Modification of Treatment,Re- positioning,Timing of Activity with Medications M4 PT-IP Mobility and Gait Start: 02/11/24 12:24 Freq: NEEDED Status: Active Protocol: Document 02/11/24 13:30 AB (Rec: 02/11/24 16:47 AB [id number]) PT-Bed Mobility Assessment Supine to Sit Supine to Sit Standby Assistance Sit to Supine Sit to Supine Standby Assistance PT-Transfer Assessment Sit to and From Stand Sit to and from Stand Minimal Assistance,Maximum Assistance,1 Person Assistance ,Use of Upper Extremities Equipment Transfer Assistive Device Gait Belt,Front Wheeled Walker Orthotic/Prosthetic Devices or Brace: No Transfers Transfer Destination Bed,Toilet Transfer Technique ambulated Transfer Ability Level of Assist Contact Guard Assistance,1 Person Assistance,Use of Upper Extremities Comments Mobility Comments pt supine in bed and nephew in room. caregiver training conducted. BP in supine: 164/ 95. completed supine to sit SBA. able to sit on EOB SBA. no c/o dizziness. BP checked: 159/90. educated nephew on use of safety belt and how to assist pt. nephew was able to put safety belt on pt and assisted pt with sit to stand min A. also able to ambulate pt using FWW CGA ~ 20 ft. pt does not want her nephew to assist her with toileting. PT took over . pt required max A for sit to stand from the toilet using grab bar. pt ambulated towards the sink using fWW CGA . pt agreed to walk in the hallway and do stairs. pt's nephew assisted pt with ambulation ~ 30 ft using FWW CGA. pt sat on w/c and stated that she is now lightheaded. BP checked: 125/67. pt refused to do stairs and stated that she is feeling faint. assisted pt back to bed. sit to stand from w/c CGA and step transfer back to EOB using FWW CGA. completed sit to supine SBA and cues. positioned pt on the bed. call light and table placed within reach. caregiver training set up again for tomorrow: 930 am Gait Assessment Gait Gait Assistance Required: Contact Guard Assist Distance (Feet) 30 Able to Maintain Weight Bearing Status Yes During Gait Assistive Devices Assistive Device Gait Belt,Front Wheeled Walker Orthotic/Prosthetic Devices or Brace: No Gait Deviations General Gait Pattern Decreased Stride Length, Decreased Feet Clearance,Step- to Gait Factors Limiting Gait Function Factors Limiting Gait Function Decreased Activity Tolerance, Decreased Strength,Difficulty Following Directions,Limited Range of Motion,Pain,Poor Balance,Poor Safety Awareness M5 PT-IP Objective Assessments Start: 02/11/24 12:24 Freq: NEEDED Status: Active Protocol: Document 02/11/24 09:30 AB (Rec: 02/11/24 12:39 AB [id number]) Orientation Orientation/Cognition Level of Alertness Alert Language Function Ability Hard of Hearing Safety Awareness Decreased Safety Awareness Memory Description Short Term Impaired Gross Range of Motion Lower Extremity ROM Assessment Left Impaired Impairments L knee flexion: ~ 50 deg L knee extnesion: ~ 25 deg less to 0 Strength Lower Extremity Strength Assessment Left Impaired Knee 3+/5 Coordination Assessment Gross Coordination Gross Coordination WNL Sensation Assessment Sensation Gross Sensation WNL Muscle Tone Muscle Tone WNL Yes M6 PT-IP Treatment Start: 02/11/24 12:24 Freq: NEEDED Status: Active Protocol: Document 02/11/24 13:30 AB (Rec: 02/11/24 16:47 AB [id number]) Physical Therapy Treatment Education Education Provided Safety M7 PT-IP Assessment and Plan Start: 02/11/24 12:24 Freq: NEEDED Status: Active Protocol: Document 02/11/24 13:30 AB (Rec: 02/11/24 16:47 AB [id number]) PT Summary Assessment and Plan Potential Rehabilitation Potential Fair Summary Impairments Pain,ROM,Strength,Balance, Coordination,Sensation,Tone, Cognition,Bed Mobility, Transfers,Gait,Activity Tolerance Progress Towards Goals Slow Progress due to Medical Issues,Slow Progress due to Activity Tolerance Assessment Summary caregiver training initiated but further training is needed . pt with orthostatic hypotension: 164/95 supine to 125/67 after walking with c/o lightheadedness and feeling faint. caregiver training set up again for [facility] at 930 am. will continue to assess. Goals Bed Mobility Goal Independent Transfer Goal Independent,Front Wheeled Walker Gait Goal Independent,Front Wheel Walker Gait Distance 200 Other Goals up/odnw 16 stesp B rails SBA Days to Meet Goals 10 Frequency of Treatment Frequency Of Treatment Twice a Day Treatment Plan Physical Therapy Treatment Plan Bed Mobility Training,Transfer Training,Gait Training, Therapeutic Exercise,Balance Retraining,Post Op Education, Discharge Planning,Hot or Cold Pack,Neuromuscular Re-ed, Coordination Retraining,Manual Therapy Other Recommendations and Next Treatment caregiver trainin am 11 Weight Bearing Status Weight Bearing Status Weight Bear as Tolerated Allowed Weight Bearing Amount (enter % LLE WBAT or #) (%) Recommendations To Nursing Amount of Assist Needed 1 Person Assist Discharge Recommendations PT Discharge Recommendations Home with 24/09 Assist Available,Home Health Transportation Needs at Discharge Private Vehicle
[2024-02-11 20:10] VITALS: BP 127/75; PULSE 71; RESP 18; TEMP 36.7; O2SAT 98
[2024-02-12] MEDS: OXYCODONE IR 5 MG TABLET PO ×3 (01:45→08:30)
[2024-02-12] MEDS: IBUPROFEN 600 MG TABLET PO ×2 (05:31→13:05)
[2024-02-12] MEDS: PANTOPRAZOLE DR 20 MG TABLET PO (05:31)
[2024-02-12] MEDS: ACETAMINOPHEN 325 MG TABLET 650 MG PO ×2 (05:32→13:03)
[2024-02-12] MEDS: DEXTROAMPHETAMINE AMPHETAMINE 20 MG 20 EACH PO ×2 (05:32→11:34)
[2024-02-12 08:00] VITALS: BP 147/84; PULSE 84; RESP 17; TEMP 35.7; O2SAT 93
[2024-02-12] MEDS: lamoTRIgine 100 MG TABLET 150 MG PO (08:30)
[2024-02-12] MEDS: ONDANSETRON 4 MG ODT PO (08:30)
[2024-02-12] MEDS: ASPIRIN EC 81 MG TABLET PO (08:32)
[2024-02-12] MEDS: polyethylene glycoL 3350 17 GM POWD.PACK PO (08:32)
[2024-02-12] MEDS: DOCUSATE 100 MG CAPSULE PO (08:32)
[2024-02-12] MEDS: hydrOXYzine HCL 25 MG TABLET 37.5 MG PO ×2 (08:32→13:05)
[2024-02-12] MEDS: estradioL 1 MG TABLET PO (09:11)
[2024-02-12] MEDS: SODIUM CHLORIDE 0.9% FLUSH 10 ML IV (09:12)
--- NOTE | 2024-02-12 10:15 | PT.IPTN ---
Current Diagnoses Unilateral primary osteoarthritis, left knee (02/10/24) Surgery Performed Operation Date: 02/10/24 13:45 Actual Procedures p Total Knee Arthroplasty(Left) - Niranjan Florentino MD Physical Therapy Treatment Note M2 PT-IP Current Condition Start: 02/11/24 12:24 Freq: NEEDED Status: Active Protocol: Document 02/11/24 09:30 AB (Rec: 02/11/24 12:39 AB [id number]) Physical Therapy Current Condition Current Condition Evaluation Date 02/11/24 Treatment Diagnosis s/p L TKA; difficulty in walking Onset Date 02/10/24 M3 PT-IP Subjective Start: 02/11/24 12:24 Freq: NEEDED Status: Active Protocol: Document 02/12/24 09:30 AB (Rec: 02/12/24 12:18 AB [id number]) Subjective Physical Therapy Visit Type Type Treatment Note Visit Start Time 09:30 Visit Stop Time 10:15 Number of OVEN OPERATOR AUTOMATIC Visits 0 Physical Therapy Visit Comments Patient Comments agreeable to do PT Therapy Pain Assessment Pain When Pain Assessed At Rest Pain Present Pain Present Pain Reported Location left knee Scale Used painn scale not stated M4 PT-IP Mobility and Gait Start: 02/11/24 12:24 Freq: NEEDED Status: Active Protocol: Document 02/12/24 09:30 AB (Rec: 02/12/24 12:18 AB [id number]) PT-Bed Mobility Assessment Supine to Sit Supine to Sit Standby Assistance Sit to Supine Sit to Supine Standby Assistance PT-Transfer Assessment Sit to and From Stand Sit to and from Stand Contact Guard Assistance,1 Person Assistance,Use of Upper Extremities Equipment Transfer Assistive Device Gait Belt,Front Wheeled Walker Orthotic/Prosthetic Devices or Brace: No Comments Mobility Comments checked on pt. pt's nephew has not arrived for caregiver training. pt stated that she was again feeling faint this morning when she was sitting up on the chair and informed her nephew that she might not go home today and nephew then did not come in for training. pt agreed to do PT. BP: 142/55. supine to sit SBA. able to sit on EOB SBA. c/o lightheadedness. BP checked: 150/53. pt sat on EOB for ~ 3 min. checked BP again: 153/83 . pt agreed to do stairs. pt ambulate from bed to w/c using FWW CGA ~ 20 ft. educated pt on stair climbing. pt completed up/down steps using FW rails CGA. assisted pt back to her room. c/o feeling faint again. BP: 157/77. pt ambulated from w/c to bed and refused to sit on the chair. sit to supine SBA. positioned pt in bed. call light and table placed within reach. Gait Assessment Gait Gait Assistance Required: Contact Guard Assist Distance (Feet) 20 Able to Maintain Weight Bearing Status Yes During Gait Assistive Devices Assistive Device Gait Belt,Front Wheeled Walker Orthotic/Prosthetic Devices or Brace: No Gait Deviations General Gait Pattern Antalgic,Decreased Stride Length,Decreased Feet Clearance,Step-to Gait Factors Limiting Gait Function Factors Limiting Gait Function Decreased Activity Tolerance, Decreased Strength,Limited Range of Motion,Pain,Poor Balance,Poor Safety Awareness Stair Climbing Assessment Evaluation Level of Assist On Stairs Contact Guard Assistance Devices Stair Climbing Assistive Devices Left Railing,Right Railing Technique/Endurance Stair Climbing Direction Ascend and Descend Stair Climbing Technique Step to Step Number of Steps Climbed 3 Stair Climbing Set # Repetitions (reps) 1 M5 PT-IP Objective Assessments Start: 02/11/24 12:24 Freq: NEEDED Status: Active Protocol: Document 02/11/24 09:30 AB (Rec: 02/11/24 12:39 AB [id number]) Orientation Orientation/Cognition Level of Alertness Alert Language Function Ability Hard of Hearing Safety Awareness Decreased Safety Awareness Memory Description Short Term Impaired Gross Range of Motion Lower Extremity ROM Assessment Left Impaired Impairments L knee flexion: ~ 50 deg L knee extnesion: ~ 25 deg less to 0 Strength Lower Extremity Strength Assessment Left Impaired Knee 3+/5 Coordination Assessment Gross Coordination Gross Coordination WNL Sensation Assessment Sensation Gross Sensation WNL Muscle Tone Muscle Tone WNL Yes M6 PT-IP Treatment Start: 02/11/24 12:24 Freq: NEEDED Status: Active Protocol: Document 02/12/24 09:30 AB (Rec: 02/12/24 12:18 AB [id number]) Physical Therapy Treatment Education Education Provided Safety M7 PT-IP Assessment and Plan Start: 02/11/24 12:24 Freq: NEEDED Status: Active Protocol: Document 02/12/24 09:30 AB (Rec: 02/12/24 12:18 AB [id number]) PT Summary Assessment and Plan Potential Rehabilitation Potential Fair Summary Impairments Pain,ROM,Strength,Balance, Coordination,Sensation,Tone, Cognition,Bed Mobility, Transfers,Gait,Activity Tolerance Progress Towards Goals Slow Progress due to Medical Issues,Slow Progress due to Activity Tolerance Assessment Summary pt requiring CGA with mobility using fWW and also completed stair climbing using B rails CGA but continue to c/o feeling faint and lightheaded during mobility limiting activities and needing rest frequently. will continue to assess progress. caregiver training was not completed as scheduled. pt told her nephew not to come in since she was not feeling well and will not be going home. Goals Bed Mobility Goal Independent Transfer Goal Independent,Front Wheeled Walker Gait Goal Independent,Front Wheel Walker Gait Distance 200 Other Goals up/odnw 16 stesp B rails SBA Days to Meet Goals 10 Frequency of Treatment Frequency Of Treatment Twice a Day Treatment Plan Physical Therapy Treatment Plan Bed Mobility Training,Transfer Training,Gait Training, Therapeutic Exercise,Balance Retraining,Post Op Education, Discharge Planning,Hot or Cold Pack,Neuromuscular Re-ed, Coordination Retraining,Manual Therapy Weight Bearing Status Weight Bearing Status Weight Bear as Tolerated Allowed Weight Bearing Amount (enter % LLE WBAT or #) (%) Recommendations To Nursing Amount of Assist Needed 1 Person Assist Discharge Recommendations PT Discharge Recommendations Home with 24/09 Assist Available,Home Health Transportation Needs at Discharge Private Vehicle
[2024-02-12] MEDS: HYDROCODONE/ACET 10/325 TABLET 1 TAB PO (11:34)
--- NOTE | 2024-02-12 12:17 | PM.DS.1 ---
History of Present Illness History of Present Illness Chief complaint: OPB Narrative: Marsha is a pleasant 68 year female who is POD#2 s/p left TKA by Dr. Florentino. This morning she reports she is feeling better and would like to d/c to home today. Reports pains as mild-moderte but well controlled. She did have some nausea but states this has improved since changing from Oxycodone to Hydrocodone. She does live alone but her nephew will be staying with her during her initial post-op recovery. She has 16 steps down into her home and so she wanted to make sure she could mobilize well before d/c to home. She has walker and post-op pain meds at home already. She does not have PT set up yet but states she has been working w/ CM to get HH PT set up. Urinating well w/o issue. Denies fever, chills, chest pain, SOB, nausea, vomiting. Operative Date/Time/Diagnoses Date of procedure: 02/10/24 Pre-op diagnosis: Left knee osteoarthritis Post-op diagnosis: same Procedure & Clinicians Procedure: Left total knee arthroplasty Same procedure as scheduled: Yes Surgeon: Niranjan Florentino Police Guard: Evelyne Vigil Anesthesia Type: Spinal, Sedation and Local Operative Notes Estimated Blood Loss (mL): 150 Procedure in detail: Left Gap-Balanced Mary Persona Medial-Congruent Primary Total Knee Arthroplasty Implants: Size 5 Cruciate Retaining Femoral Component Size C Tibial Component Size 16 Medial Congruent Polyethylene Insert Unresurfaced Patella Discharge Providers Provider Discharge Date: 02/12/24 Primary care physician: Leonidas Solorzano MD Consults: 02/10/24 06:00 Consult to Anesthesiology Routine Comment: Consulting Provider: Anesthesiologist Reason for consultation: Regional block for post operative pain control 02/10/24 16:49 Consult to Discharge Planning Routine Comment: Consult to Physical Therapy Evaluate & Treat Comment: Physician Instructions: postop TKA protocol 02/11/24 08:52 Consult to Home Health Routine Comment: PT, OT Reason For Exam: Home Health Services Discharge provider: Alisa Pedroza PA-C Summary Hospital Course Discharge Diagnosis: stable s/p left TKA Hospital Course: Hosptial course complicated by post-op hypotension on POD#1 and nausea/vomiting on POD#2, these sx are now resolved and patient feels stable to be d/c to home w/ her family. Exam Vital Signs (past 8 hours): - 02/12/24 08:00 02/12/24 08:00 Temperature 96.3 F L Pulse Rate 84 Respiratory Rate 17 Blood Pressure 147/84 H Pulse Oximetry 93 Oxygen Delivery Method Room Air Oxygen Flow Rate 0 Oxygen Delivery Method Room Air Oxygen Flow Rate 0 Narrative Exam Narrative: Patient sitting comfortably in bedside chair during our interview today. No acute distress. AOx3. Grossly normal alignment of the LLE with mild-moderate swelling extending throughout. 5/5 strength with DF, PF, EHL bilaterally. Gross sensation intact throughout bilateral lower extremities. Calves soft and non-tender bilaterally. SCDs are on and functioning. Brisk capillary refill, pulses intact. Post-surgical dressings are dressing clean, dry and intact over the left knee without drainage. Objective Labs 02/11/24 06:00 [facility] Medical History Low back pain potentially associated with radiculopathy Neutropenia Elevated liver enzymes Plantar warts (~2017) Osteoarthritis (~2007) Depression (~2000) Migraines (~1971) Osteoporosis (~2007) Carpal tunnel syndrome Chicken pox (~1960) Ovarian cyst (~2017) Cyst (~2008) Atrophic vaginitis History of endometrial biopsy Hip dysplasia (~1956) DJD (degenerative joint disease) Cervical stenosis (uterine cervix) Postmenopausal bleeding Asthma ADHD (~1962) GERD (gastroesophageal reflux disease) Bipolar 1 disorder (~2000) Surgical History Anesthesia History of hip replacement (~2018) History of arthroscopic knee surgery (~2003) History of appendectomy (~1977) History of hip surgery (~1958) History of bilateral salpingo-oophorectomy (BSO) (05/05/18) S/P laparoscopic supracervical hysterectomy (05/05/18) Hx of dilation and curettage Surgery, elective Hx of repair of left rotator cuff Family History Father Dementia Mother Hypertension History of heart disease Grandmother Cancer Grandfather History of heart disease Family/Other Transgender Social History household members: family Smoking Status: Never smoker alcohol intake: current substance use type: does not use Discharge Assessment & Plan Assessment and Plan Assessment: Progressing as expected, stable s/p L TKA Plan of Treatment: 1) Plan to discharge to home today with family pending PT evaluation. 2) Continue multimodal pain management with ice to the knee for additional pain control. 3) ASA b.i.d. for DVT prophylaxis. 4) Start outpatient physical therapy to work on range of motion and mobility. Weightbearing as tolerated. Stressed the importance of scheduling post-op PT KODAK. 5) Keep dressing intact, clean, dry until 2 week postop appointment. No soaking the incision site in pools or tubs. No topical ointments or creams to the incision site. 6) Follow up at [facility] orthopedics in 2 weeks for a postop appointment and wound check. All patient's questions were answered, they demonstrates understanding and are in agreement with the plan. Call our office if any questions or concerns arise. Detailed postoperative instructions available at [email or web address] Discharge Plan Discharge Plan Patient Disposition: Home Discharge orders & Medications Discharge Orders: Discharge (Order); Ordered 02/12/24 Ordered By: Alisa Pedroza Prescriptions: New acetaminophen 325 mg Tablet 650 mg PO Q6H Qty: 60 0RF aspirin 81 mg Tablet,Delayed Release (Dr/Ec) 81 mg PO BID Qty: 60 0RF polyethylene glycol 3350 17 gram Powder In Packet 17 g PO DAILY PRN (Reason: Constipation) Qty: 14 0RF ibuprofen 600 mg Tablet 600 mg PO Q6H Qty: 60 0RF Continued albuterol sulfate 90 mcg/actuation HFA aerosol inhaler 2 puff inhalation Q6H PRN (Reason: for wheezing) Qty: 8.5 2RF sumatriptan succinate 100 mg tablet 100 mg PO Q2-4H PRN (Reason: migraine headache) Qty: 14 3RF lamotrigine 100 mg tablet 150 mg PO DAILY Qty: 135 3RF estradiol 1 mg tablet 1 mg PO DAILY Qty: 90 2RF dextroamphetamine-amphetamine [Adderall] 20 mg tablet 20 mg PO BID Qty: 60 0RF omeprazole 20 mg capsule,delayed release(DR/EC) 20 mg PO DAILY Qty: 90 0RF diclofenac sodium [Arthritis Pain (diclofenac)] 1 % gel 4 g topical QID PRN (Reason: pain (scale score 1-3)) Qty: 100 3RF Rx Instructions: apply to single knee, ankle, foot; for foot includes sole/toes/top of foot triamcinolone acetonide 0.1 % cream 1 applic topical BID PRN (Reason: rash) Qty: 30 11RF Rx Instructions: apply to affected areas for a 2 weeks if needed then stop for 1-2 weeks. can repeat as needed. fluticasone propionate 110 mcg/actuation Hfa Aerosol Inhaler 1 puff INHALATION BID PRN (Reason: asthma) hydroxyzine HCl 25 mg tablet 37.5 mg PO PRN PRN (Reason: Sleep) Follow up/Referrals: Leonidas Solorzano MD [Primary Care Provider] - Niranjan Florentino MD [Physician] - 02/20/24 4:20 pm (Follow up w/ Evelyne Vigil PA-C, at [facility] in [place].) Diet/Activity/Treatments Diet: Diet as Tolerated Activity: Weightbearing as tolerated. Walk frequently! Cold/Heat Therapy: Ice to knee as needed for pain. Skin/Wound/Dressing Care Report to your healthcare provider any signs of infection, such as:: chills, fever, night sweats, unusual drainage and unusual redness Dressing: May remove EZEKIEL wrap and cotton padding and shower on 02/12/2024. Leave dressing in place until follow up in office. No bathing or otherwise soaking incision. Call the office if the dressing becomes saturated inside. Visit Report/Discharge Packet Instructions: How to Use an Incentive Spirometer, DI for Knee Replacement, DI for Constipation, How to Prevent Falls, DI for Nausea -- Adult, How to Apply an Ezekiel Wrap Stand Alone Forms: Patient Portal/API, Surgery Discharge Discharge Data Primary Care Provider: Leonidas Solorzano Attending Provider: Niranjan Florentino Quality VTE Deep Vein Thrombosis/Pulmonary Embolism Present on Admission: No
--- NOTE | 2024-02-12 15:14 | PC.NURSE ---
Pt feels much better today and and would like to discharge. saw pt this am. narcotic changed to hydrocodone and pt feels much better. She had some nausea as well and zofran was given and effective. Vds w/out problems. Following her precautions for total knee. She was reassured as she thought she should be doing better than she has been. PA gave d/c instructions. Physical therapy gave d/c instructions. Discharge packet given and reviewed. Rx has been esent. Questions answered. Pt discharged home with nephew.
== END 2024-02-12 13:20 | disposition home or self-care (01) ==
LOC: OR 12:00 → AC 12:01
PROVIDERS: PCP Family Medicine; Referring Provider Orthopaedic Surgery Adult Reconstructive Orthopaedic Surgery; Visit Provider Orthopaedic Surgery Adult Reconstructive Orthopaedic Surgery
PROC: 0SRD0JZ Replacement of Left Knee Joint with Synthetic Substitute, Open Approach (ICD-10-PCS; CPT 27447; principal; 2024-02-10 13:45)
DX: M17.12 Unilateral primary osteoarthritis, left knee (principal)
CPT/HCPCS: 27447; 36415; 73560; 85014; 85018; 97116; 97162; 97530; C1776; A9270; J0690; J1171; J2250; J2405; J2704

== ENCOUNTER 2024-02-16 15:18 | Emergency (ER) | payer MEDICARE, MEDICAID, SELFPAY ==
[2024-02-10 12:07] VITALS: BMI 19.8
[2024-02-16 15:47] VITALS: BP 137/82; PULSE 106; RESP 18; TEMP 36.8; O2SAT 97; BMI 19.9
--- NOTE | 2024-02-16 15:50 | ED_ITS ---
HPI - Extremity Problem <Fabiola Ortiz PA-C - Last Filed: 02/16/24 19:21> General Chief complaint: Extremity Problem,Nontraumatic Stated complaint: lt knee sx on Saturday, swelling and px Time Seen by Provider: 02/16/24 15:31 History of Present Illness HPI Narrative: 68-year-old woman who is on day 7 postop knee replacement presents with concern for left knee increased pain swelling and redness. Patient states that all day yesterday she felt her knee was more swollen and painful than it had been since her surgery so she kept it elevated and has been icing it on and. This afternoon she noticed redness developing around the incision site outside of the bandage and states in the past hour it seems to be growing. Yesterday she felt a little warm and feverish but did not check her temperature. She denies any chills nausea vomiting diarrhea. She states her appetite has been a little less than usual. Related Data Home Medications Medication Instructions Recorded Confirmed fluticasone propionate 110 1 puff inhalation BID PRN asthma 01/28/24 01/28/24 mcg/actuation HFA aerosol inhaler hydroxyzine HCl 25 mg tablet 37.5 mg PO PRN PRN Sleep 01/28/24 02/10/24 Previous Rx's Medication Instructions Recorded diclofenac sodium 1 % topical gel 4 g topical QID PRN pain (scale 03/20/22 (Arthritis Pain (diclofenac)) score 1-3) #100 grams triamcinolone acetonide 0.1 % 1 applic topical BID PRN rash #30 07/17/22 topical cream grams albuterol sulfate 90 mcg/actuation 2 puff inhalation Q6H PRN for 03/05/23 aerosol inhaler wheezing #8.5 grams sumatriptan succinate 100 mg tablet 100 mg PO Q2-4H PRN migraine 04/10/23 headache #14 tabs lamotrigine 100 mg tablet 150 mg (1.5 x 100 mg) PO DAILY 08/01/23 #135 tabs estradiol 1 mg tablet 1 mg PO DAILY #90 tabs 11/05/23 dextroamphetamine-amphetamine 20 20 mg PO BID #60 tabs 01/10/24 mg tablet (Adderall) omeprazole 20 mg capsule,delayed 20 mg PO DAILY #90 caps 01/28/24 release acetaminophen 325 mg tablet 650 mg (2 x 325 mg) PO Q6H #60 tabs 02/11/24 aspirin 81 mg tablet,delayed 81 mg PO BID #60 tabs 02/11/24 release ibuprofen 600 mg tablet 600 mg PO Q6H #60 tabs 02/11/24 polyethylene glycol 3350 17 gram 17 g PO DAILY PRN Constipation #14 02/11/24 oral powder packet ea Allergies Allergy/AdvReac Type Severity Reaction Status Date / Time No Known Drug Allergies Allergy Verified 02/10/24 12:23 Review of Systems <Fabiola Ortiz PA-C - Last Filed: 02/16/24 19:21> Review of Systems Narrative: See HPI Patient History <Fabiola Ortiz PA-C - Last Filed: 02/16/24 19:21> Medical History Low back pain potentially associated with radiculopathy Neutropenia Elevated liver enzymes Plantar warts (~2017) Osteoarthritis (~2007) Depression (~2000) Migraines (~1971) Osteoporosis (~2007) Carpal tunnel syndrome Chicken pox (~1960) Ovarian cyst (~2017) Cyst (~2008) Atrophic vaginitis History of endometrial biopsy Hip dysplasia (~1956) DJD (degenerative joint disease) Cervical stenosis (uterine cervix) Postmenopausal bleeding Asthma ADHD (~1962) GERD (gastroesophageal reflux disease) Bipolar 1 disorder (~2000) Surgical History Anesthesia History of hip replacement (~2018) History of arthroscopic knee surgery (~2003) History of appendectomy (~1977) History of hip surgery (~1958) History of bilateral salpingo-oophorectomy (BSO) (05/05/18) S/P laparoscopic supracervical hysterectomy (05/05/18) Hx of dilation and curettage Surgery, elective Hx of repair of left rotator cuff Family History Father Dementia Mother Hypertension History of heart disease Grandmother Cancer Grandfather History of heart disease Family/Other Transgender Social History household members: family Smoking Status: Never smoker alcohol intake: current substance use type: does not use Smoking Status: Never smoker alcohol intake frequency: a few times a week Exam <Fabiola Ortiz PA-C - Last Filed: 02/16/24 19:21> Narrative Exam Narrative: GENERAL: [68] year old patient appears stated age. Well-developed patient, in mild distress. HEAD: Atraumatic. Normocephalic. EYES: Pupils equal round and reactive. Extraocular motions intact. No scleral icterus. No injection or drainage. ENT: Nose without bleeding, purulent drainage. Airway patent. NECK: Trachea midline. Non tender CARDIOVASCULAR: Regular rate and rhythm without murmurs, gallops, or rubs. RESPIRATORY: Clear to auscultation. Breath sounds equal bilaterally. No wheezes, rales, or rhonchi. GASTROINTESTINAL: Abdomen nondistended. EXTREMITIES: There is moderate swelling of the left lower leg and thigh most notable about the left knee. A postop bandage is in place directly over the surgical incision anteriorly over the patient's left knee. There is erythema that is not bright, spreading laterally from incision site bandage as well as medially and tenderness. The area is quite warm to the touch. No other edema or joint tenderness. Strong dorsalis pedis pulse. NEURO: AOx3. SKIN: No rash or erythema of visible areas Initial Vital Signs Initial Vital Signs: Vital Signs Temperature 98.2 F 02/16/24 15:47 Pulse Rate 106 H 02/16/24 15:47 Respiratory Rate 18 02/16/24 15:47 Blood Pressure 137/82 02/16/24 15:47 Pulse Oximetry 97 02/16/24 15:47 Oxygen Delivery Method Room Air 02/16/24 15:47 <Fatuma Palomares DO - Last Filed: 02/17/24 07:04> Initial Vital Signs Initial Vital Signs: Vital Signs Temperature 98.2 F 02/16/24 15:47 Pulse Rate 106 H 02/16/24 15:47 Respiratory Rate 18 02/16/24 15:47 Blood Pressure 137/82 02/16/24 15:47 Pulse Oximetry 97 02/16/24 15:47 Oxygen Delivery Method Room Air 02/16/24 15:47 Scores <Fabiola Ortiz PA-C - Last Filed: 02/16/24 19:21> Wells' Criteria for DVT Active Cancer (Treatment within 6 months): No Bedridden recently >3 days or major surgery within 4 weeks: Yes Calf Swelling >3cm compared to other leg: No Collateral (nonvericose) superficial veins present: No Entire leg swollen: Yes Localized tenderness along the deep vein system: No Pitting edema, confined to symtomatic leg: No Paralysis, paresis, or recent plaster immobilization of ext: No Previously documented DVT: No Alternative dx to DVT as likely or more likely: No Stephon' criteria for DVT: 2 <Fatuma Palomares DO - Last Filed: 02/17/24 07:04> Simran Criteria for DVT Stephon' criteria for DVT: 2 Course <Fabiola Ortiz PA-C - Last Filed: 02/16/24 19:21> Orders Ordered: Discontinued Medications Oxycodone HCl (Oxycodone Ir 5 Mg Tablet) 5 mg PO NOW ONE Stop: 02/16/24 16:58 Last Admin: 02/16/24 17:10 Dose: 5 mg Documented By: LAILA Consultations Consultation #1: Consulted Dr. Pruitt, orthopedic surgeon institution librarian about this patient. Does recommend ensuring that there is no evidence of a DVT with ultrasound which is ordered. Otherwise she recommends close follow up and recheck with Dr. Florentino tomorrow or Saturday. At this time she does not recommend antibiotics as patient has no leukocytosis, has not been having fevers and likely the swelling inflammation and pain are to be expected given her recent knee surgery. 1801 Vital Signs Vital signs: Vital Signs - 8 hr 02/16/24 15:47 Temperature 98.2 F Pulse Rate 106 H Respiratory Rate 18 Blood Pressure 137/82 Pulse Oximetry 97 Oxygen Delivery Method Room Air <Fatuma Palomares DO - Last Filed: 02/17/24 07:04> Orders Ordered: Discontinued Medications Oxycodone HCl (Oxycodone Ir 5 Mg Tablet) 5 mg PO NOW ONE Stop: 02/16/24 16:58 Last Admin: 02/16/24 17:10 Dose: 5 mg Documented By: RL Vital Signs Vital signs: Vital Signs - 8 hr 02/16/24 15:47 Temperature 98.2 F Pulse Rate 106 H Respiratory Rate 18 Blood Pressure 137/82 Pulse Oximetry 97 Oxygen Delivery Method Room Air MDM - Extremity (Nontraumatic) <Fabiola Ortiz PA-C - Last Filed: 02/16/24 19:21> Differential Diagnosis Differential diagnosis: Likely lower extremity edema, deep vein thrombosis of lower extremity (sepsis) and other (Postop infection, postop pain and swelling) Lab Data 02/16/24 16:26 02/16/24 16:26 Labs: Lab Results 02/16/24 Range/Units 16:26 WBC 4.5 (4.5-11.0) X10^3/uL RBC 3.74 L (4.0-5.2) X10^6/uL Hgb 10.8 L (12.0-16.0) g/dL Hct 31.6 L (36-46) % MCV 84.6 (80-100) fL MCH 29.0 (26-34) PG MCHC 34.2 (30-36) % RDW 13.6 (11.6-14.8) % Plt Count 286 (150-400) X10^3/uL Neut % (Auto) 58.6 (50-75) % Lymph % (Auto) 20.5 L (25-40) % Sharkey % (Auto) 14.4 H (3-14) % Eos % (Auto) 5.9 H (2-4) % Baso % (Auto) 0.6 (0-2) % Neut # (Auto) 2600 (5819-4996) /uL Lymph # (Auto) 900 L (9477-8524) /uL Sharkey # (Auto) 600 (0-900) /uL Eos # (Auto) 300 (0-450) /uL Baso # (Auto) 0 (0-100) /uL ESR 40 H (0-20) MM/HR Sodium 135 L (137-145) mmol/L Potassium 4.1 (3.4-5.1) mmol/L Chloride 103 (98-107) mmol/L Carbon Dioxide 30 (22-32) mmol/L BUN 14 (7-17) mg/dL Creatinine 0.60 (0.52-1.04) mg/dL Estimated GFR > 60 (>60) mL/min BUN/Creatinine Ratio 23.3 H (6-22) Glucose 102 (80-110) mg/dL Lactate 0.7 (0.7-2.1) mmol/L Calcium 9.1 (8.4-10.2) mg/dL Total Bilirubin 0.6 (0.2-1.3) mg/dL AST 30 (14-36) IU/L ALT 20 (<35) IU/L Alkaline Phosphatase 70 (38-126) U/L Total Creatine Kinase 201 H (30-135) U/L Troponin I < 0.012 (0.01-0.034) ng/mL C-Reactive Protein 4.1 H (<1.0) mg/dL Total Protein 6.1 L (6.3-8.2) g/dL Albumin 3.4 L (3.5-5.0) g/dL Globulin 2.7 (1.7-4.1) g/dL Albumin/Globulin Ratio 1.3 (1.0-2.8) Procalcitonin 0.037 (<0.5) ng/mL Imaging Data US - DVT: My Impression: Agree with Radiology interpretation Radiologist's Impression: [address] [address] Ultrasound Report Signed Patient: Marsha Goodman MR#: [id number] : 1955 Acct:[id number] Age/Sex: 68 / F Date of Service: 02/16/24 Loc: ED Accession Number: [id number] Procedure: US periph venous low extrem lt Ordering Provider: Fabiola Ortiz PA-C PROCEDURE: US PERIPH VENOUS LOW EXTREM LT INDICATIONS: eval for DVT, 7D post op knee replacement TECHNIQUE: Real-time imaging, as well as color and pulse Doppler interrogation, were performed of the lower extremity deep veins from the inguinal ligament to the popliteal fossa, with documentation of the visualized calf veins. COMPARISON: None. FINDINGS: The common femoral, femoral, popliteal, and the visualized calf veins are normally compressible, and free of intraluminal thrombus. Color and pulse Doppler demonstrate normal phasic intraluminal flow. There is normal augmentation response to distal compression maneuver. IMPRESSION: No findings of lower extremity deep venous thrombosis. Dictated by: Steffi Swanson M.D. on 02/16/2024 at 18:01 Approved by: Steffi Swanson M.D. on 02/16/2024 at 18:05 ECG Data Attestation EKG: I personally reviewed and interpreted this ECG as follows: Interpretation: Normal sinus rhythm heart rate 82 QTC within normal limits no ST changes noted. MDM Narrative Medical decision making narrative: 68-year-old woman with knee surgery on Saturday 7 days ago presents with concern for worsening left knee pain swelling in past 36 hrs and erythema developing this afternoon about the surgical site. Surgery was performed at this hospital by Dr. Florentino 7 D SENIOR [employer] DEVELOPER. Patient was tachycardic on presentation which did resolve shortly but returned. Based on increased pain swelling and redness in her knee and recent postop status as well as her tachycardia a sepsis workup was performed including inflammatory markers. Lactate was negative, she had no leukocytosis. Her CRP was elevated to 4 and her ESR to 40. Blood cultures pending. Area of erythema was demarcated with a skin pen immediately after patient arrival to the emergency department no changes were noted during stay. Patient has mild intermittent tachycardia could possibly be explained by the fact that she takes Ritalin. Discussed the patient with Dr. Pruitt, orthopedics and we obtained an ultrasound for further evaluation for possible DVT. This returned negative. Per recommendation of orthopedist, have patient follow up closely ideally tomorrow or Saturday in clinic with Dr Florentino; do not start antibiotics, patient will monitor for new or worsening symptoms specifically fevers and seek re-evaluation if these develop between now and her visit. Return precautions provided, follow-up plan discussed, all questions answered. <Fatuma Palomares, - Last Filed: 02/17/24 07:04> Lab Data Labs: Lab Results 02/16/24 Range/Units 16:26 WBC 4.5 (4.5-11.0) X10^3/uL RBC 3.74 L (4.0-5.2) X10^6/uL Hgb 10.8 L (12.0-16.0) g/dL Hct 31.6 L (36-46) % MCV 84.6 (80-100) fL MCH 29.0 (26-34) PG MCHC 34.2 (30-36) % RDW 13.6 (11.6-14.8) % Plt Count 286 (150-400) X10^3/uL Neut % (Auto) 58.6 (50-75) % Lymph % (Auto) 20.5 L (25-40) % Sharkey % (Auto) 14.4 H (3-14) % Eos % (Auto) 5.9 H (2-4) % Baso % (Auto) 0.6 (0-2) % Neut # (Auto) 2600 (5924-2841) /uL Lymph # (Auto) 900 L (6265-9992) /uL Sharkey # (Auto) 600 (0-900) /uL Eos # (Auto) 300 (0-450) /uL Baso # (Auto) 0 (0-100) /uL ESR 40 H (0-20) MM/HR Sodium 135 L (137-145) mmol/L Potassium 4.1 (3.4-5.1) mmol/L Chloride 103 (98-107) mmol/L Carbon Dioxide 30 (22-32) mmol/L BUN 14 (7-17) mg/dL Creatinine 0.60 (0.52-1.04) mg/dL Estimated GFR > 60 (>60) mL/min BUN/Creatinine Ratio 23.3 H (6-22) Glucose 102 (80-110) mg/dL Lactate 0.7 (0.7-2.1) mmol/L Calcium 9.1 (8.4-10.2) mg/dL Total Bilirubin 0.6 (0.2-1.3) mg/dL AST 30 (14-36) IU/L ALT 20 (<35) IU/L Alkaline Phosphatase 70 (38-126) U/L Total Creatine Kinase 201 H (30-135) U/L Troponin I < 0.012 (0.01-0.034) ng/mL C-Reactive Protein 4.1 H (<1.0) mg/dL Total Protein 6.1 L (6.3-8.2) g/dL Albumin 3.4 L (3.5-5.0) g/dL Globulin 2.7 (1.7-4.1) g/dL Albumin/Globulin Ratio 1.3 (1.0-2.8) Procalcitonin 0.037 (<0.5) ng/mL Discharge Plan Departure Patient Disposition: Home Clinical Impression: Left leg swelling, Post-op pain Activity Restrictions/Additional Instructions: *You have been diagnosed with [postop pain and swelling] *What to do: *Please continue to take your regular medications as directed. [ ] New medication prescriptions sent to your pharmacy: [ ] [ ] New medication written as a paper prescription [X ] No new medications given *Please follow up with your primary care provider in 2-3 days, call for an appointment. Let them know you were seen in the Emergency Department and that we ask that you be seen in follow up. We will electronically transmit a record of today's note if your PCP is in our system. You came in today with concern for increasing swelling and pain in her left knee in the last day and a half since your surgery that happened 7 days ago. As well as some concern for redness around your surgical site. We evaluated you today with an ultrasound which was negative for DVT. As well as labs to evaluate for possible infection of your blood stream or surgical site. These labs did not indicate this. The orthopedic surgeon feels that you are swelling and pain worsening recently are likely normal given that UR about 7 days postoperative. She would like you to be seen by your surgeon tomorrow ideally or possibly Saturday for follow-up and a recheck to ensure that there are no other changes or worsening of your symptoms or condition. If you do develop fevers between now and then please make sure you seek re-evaluation. Or if you have other symptoms of concern you may seek re-evaluation. Otherwise continue with your postoperative directions as provided by your surgeon. I hope you feel better soon. *If you do not have a primary care provider please contact the [facility] Resource line at [phone]. They will ask some questions about your medical history and help get you set up with a doctor in the community. *Return to Emergency Department if you should have any new, worsening or concerning symptoms, such as [fever greater than 101 F, shaking chills, worsening pain, persistent vomiting or other bothersome symptoms] Prescriptions: No Action albuterol sulfate 90 mcg/actuation HFA aerosol inhaler 2 puff inhalation Q6H PRN (Reason: for wheezing) Qty: 8.5 2RF sumatriptan succinate 100 mg tablet 100 mg PO Q2-4H PRN (Reason: migraine headache) Qty: 14 3RF lamotrigine 100 mg tablet 150 mg PO DAILY Qty: 135 3RF estradiol 1 mg tablet 1 mg PO DAILY Qty: 90 2RF dextroamphetamine-amphetamine [Adderall] 20 mg tablet 20 mg PO BID Qty: 60 0RF omeprazole 20 mg capsule,delayed release(DR/EC) 20 mg PO DAILY Qty: 90 0RF diclofenac sodium [Arthritis Pain (diclofenac)] 1 % gel 4 g topical QID PRN (Reason: pain (scale score 1-3)) Qty: 100 3RF Rx Instructions: apply to single knee, ankle, foot; for foot includes sole/toes/top of foot triamcinolone acetonide 0.1 % cream 1 applic topical BID PRN (Reason: rash) Qty: 30 11RF Rx Instructions: apply to affected areas for a 2 weeks if needed then stop for 1-2 weeks. can repeat as needed. fluticasone propionate 110 mcg/actuation Hfa Aerosol Inhaler 1 puff INHALATION BID PRN (Reason: asthma) hydroxyzine HCl 25 mg tablet 37.5 mg PO PRN PRN (Reason: Sleep) acetaminophen 325 mg Tablet 650 mg PO Q6H Qty: 60 0RF aspirin 81 mg Tablet,Delayed Release (Dr/Ec) 81 mg PO BID Qty: 60 0RF polyethylene glycol 3350 17 gram Powder In Packet 17 g PO DAILY PRN (Reason: Constipation) Qty: 14 0RF ibuprofen 600 mg Tablet 600 mg PO Q6H Qty: 60 0RF Referrals: Leonidas Solorzano MD [Primary Care Provider] - Stand Alone Forms: Patient Portal/API/Survey ED Sign-out <Fatuma Palomares DO - Last Filed: 02/17/24 07:04> Cosign ED Attending Cosignature Attestation: Patient was discussed with me I never saw or evaluated patient myself. Recommended appropriate labs and orthopedic consultation I was available for consultation.
--- NOTE | 2024-02-16 16:10 | EKG_ITS ---
[address] [address] Test Date: 2024-02-16 Pat Name: Marsha Post Department: [facility] Room: Gender: Female Pharmaceutical Sales Specialist: LAZ : 1955 Requested By: Order Number: [id number] Reading MD: Severiano Amaya Measurements Intervals [place] Rate: 82 P: 68 [place]: 154 QRS: 10 QRSD: 78 T: 68 QT: 370 QTc: 432 Interpretive Statements Normal sinus rhythm Electronically Signed On 02-18-2024 19:42:19 PST by Severiano Amaya
[2024-02-16 16:40] LABS: Add Manual Diff / Slide Review NO; Basophils Absolute Auto 0 /uL (0-100); Basophils Percent Auto 0.6 % (0-2); Eosinophils Absolute Auto 300 /uL (0-450); Eosinophils Percent Auto 5.9 % (2-4); Hematocrit 31.6 % (36-46); Hemoglobin 10.8 g/dL (12.0-16.0); Lymphocytes Absolute Auto 900 /uL (1100-4500); Lymphocytes Percent Auto 20.5 % (25-40); Mean Corpuscular HGB Conc 34.2 % (30-36); Mean Corpuscular Volume 84.6 fL (80-100); Monocytes Absolute Auto 600 /uL (0-900); Monocytes Percent Auto 14.4 % (3-14); Neutrophils Absolute Auto 2600 /uL (1500-7000); Neutrophils Percent Auto 58.6 % (50-75); Platelet Count 286 X10^3/uL (150-400); Red Blood Cell Count 3.74 X10^6/uL (4.0-5.2); Red Cell Distribution Width 13.6 % (11.6-14.8); White Blood Cell Count 4.5 X10^3/uL (4.5-11.0)
[2024-02-16 16:48] LABS: Lactate (Lactic Acid) 0.7 mmol/L (0.7-2.1)
[2024-02-16 16:52] LABS: Alanine Aminotransferase 20 IU/L (<35); Albumin 3.4 g/dL (3.5-5.0); Albumin Globulin Ratio 1.3 (1.0-2.8); Alkaline Phosphatase 70 U/L (38-126); Aspartate Aminotransferase 30 IU/L (14-36); BUN Creatinine Ratio 23.3 (6-22); Bilirubin Total 0.6 mg/dL (0.2-1.3); Blood Urea Nitrogen 14 mg/dL (7-17); C-Reactive Protein Quant 4.1 mg/dL (<1.0); Calcium 9.1 mg/dL (8.4-10.2); Carbon Dioxide 30 mmol/L (22-32); Chloride 103 mmol/L (98-107); Creatine Kinase 201 U/L (30-135); Estimated Glomerular Filt Rate > 60 mL/min (>60); Globulin 2.7 g/dL (1.7-4.1); Glucose 102 mg/dL (80-110); HEMOLYSIS < 15 (0-50); Potassium 4.1 mmol/L (3.4-5.1); Sodium 135 mmol/L (137-145); Total Protein 6.1 g/dL (6.3-8.2)
[2024-02-16 17:00] LABS: Troponin I < 0.012 ng/mL (0.01-0.034)
[2024-02-16 17:05] LABS: Procalcitonin 0.037 ng/mL (<0.5)
[2024-02-16] MEDS: OXYCODONE IR 5 MG TABLET PO (17:10)
[2024-02-16 17:44] LABS: Erythrocyte Sedimentation Rate 40 MM/HR (0-20)
--- NOTE | 2024-02-16 18:01 | DI.US.S_ITS ---
PROCEDURE: US PERIPH VENOUS LOW EXTREM LT INDICATIONS: eval for DVT, 7D post op knee replacement TECHNIQUE: Real-time imaging, as well as color and pulse Doppler interrogation, were performed of the lower extremity deep veins from the inguinal ligament to the popliteal fossa, with documentation of the visualized calf veins. COMPARISON: None. FINDINGS: The common femoral, femoral, popliteal, and the visualized calf veins are normally compressible, and free of intraluminal thrombus. Color and pulse Doppler demonstrate normal phasic intraluminal flow. There is normal augmentation response to distal compression maneuver. IMPRESSION: No findings of lower extremity deep venous thrombosis. Dictated by: Steffi Swanson M.D. on 02/16/2024 at 18:01 Approved by: Steffi Swanson M.D. on 02/16/2024 at 18:05
[2024-02-16 19:20] VITALS: BP 150/79; PULSE 82; RESP 17; O2SAT 99
== END 2024-02-16 19:22 | disposition home or self-care (01) ==
PROVIDERS: Emergency Provider Student in an Organized Health Care Education/Training Program; PCP Family Medicine
DX: G89.18 Other acute postprocedural pain (principal); M25.562 Pain in left knee; M79.89 Other specified soft tissue disorders; Z96.652 Presence of left artificial knee joint
CPT/HCPCS: 36415; 80053; 82550; 83605; 84145; 84484; 85025; 85651; 86140; 87040; 93005; 93971; 99284

== ENCOUNTER → 2024-05-19 11:03 | Outpatient (CLI) | payer MEDICARE, MEDICAID, SELFPAY ==
[2024-02-10 12:07] VITALS: BMI 19.8
--- NOTE | 2024-05-19 11:04 | DI.RAD.S_ITS ---
PROCEDURE: XR FINGER RT MIN 2V INDICATIONS: Mass lateral side of DIP TECHNIQUE: AP hand, 2 views of the right 3rd finger(s) acquired. COMPARISON: [facility], , XR FINGER RT MIN 2V, 07/12/2022, 12:42. FINDINGS: Bones: T tiny nondisplaced avulsion fracture dorsal base of the 3rd distal phalanx appreciated Joints: Severe degeneration of the 1st CMC and 1st MCP noted. There is mild degeneration all MCP and interphalangeal joints. Soft tissues: No soft tissue abnormality. IMPRESSION: Tiny avulsion fracture dorsal base of the 3rd distal phalanx. Soft tissue masses are poorly assessed by plain film. Suggest directed ultrasound Degeneration Dictated by: Scotty Miramontes M.D. on 05/20/2024 at 7:39 Approved by: Scotty Miramontes M.D. on 05/20/2024 at 7:41
== END ==
PROVIDERS: PCP Family Medicine; Referring Provider Physician Assistant; Visit Provider Physician Assistant
DX: M18.11 Unilateral primary osteoarthritis of first carpometacarpal joint, right hand (principal); M19.041 Primary osteoarthritis, right hand; R22.31 Localized swelling, mass and lump, right upper limb
CPT/HCPCS: 73140

== ENCOUNTER → 2024-05-26 09:57 | Outpatient (CLI) | payer MEDICARE, MEDICAID, SELFPAY ==
[2024-02-10 12:07] VITALS: BMI 19.8
--- NOTE | 2024-05-26 09:59 | DI.MG.S_ITS ---
US breast RT limited, MM diagnostic mammo BI: 05/26/2024 BI-RADS: 2 CLINICAL: 69-year old female for bilateral diagnostic mammogram and right diagnostic breast ultrasound. The patient presents for short interval follow-up. Tyrer-Cuzick lifetime risk of 7.2%. No personal or first-degree family history of breast cancer. Current reported family history of breast cancer: maternal grandmother and paternal grandmother. The patient had prior bilateral breast biopsies. PRIOR EXAMS 10/08/2023, 04/08/2023, 06/11/2022, 04/20/2022, 03/31/2020, 12/12/2018, 07/17/2016, 01/04/2015. MAMMOGRAPHY TECHNIQUE: 2D and 3D (tomosynthesis) digital mammographic views obtained, with additional images as needed for full coverage. Current study was also evaluated with a Computer Aided Detection (CAD) system. ULTRASOUND TECHNIQUE Real-time lowe scale and color doppler imaging of the area of clinical interest was performed with image documentation. TARGETED Right Breast Ultrasound: Real-time ultrasound exam was performed focused to area of clinical and/or imaging concern. DENSITY C. The breasts are heterogeneously dense, which may obscure small masses. MAMMOGRAPHY FINDINGS Right (finding-1): Inner at 2:00, Posterior depth, measuring 0.8 cm: Correlating with prior imaging concern there is a circumscribed, oval, high-density mass present with associated calcifications. Mass is unchanged in size and appearance. Left: Biopsy marker present on the left. There are no suspicious masses, calcifications, or other findings in the breast. No significant change from comparison. ULTRASOUND FINDINGS Right (finding-1): Upper Inner at 2:00, 4 cm from nipple, measuring 0.5 x 0.7 x 0.7 cm: Correlating with findings on mammogram there is an oval, circumscribed, hypoechoic mass. The mass is unchanged in size and appearance. There are similar calcifications in the mass compared to 2023. This mass previously measured 0.5 x 0.7 x 0.8 cm on 06/11/2022. IMPRESSION: Right * The mass in the right breast at 2:00, 4 cm from the nipple, has demonstrated almost two years of stability and is consistent with a benign etiology. Bilateral * No evidence of malignancy with benign findings. RECOMMENDATIONS Bilateral * Annual screening mammography. OVERALL ASSESSMENT CATEGORY BI-RADS-2: Benign. The [employer] recommends annual screening mammography beginning at age 40 for women with average risk of breast cancer. ELECTRONICALLY SIGNED: Jessica Mosquera M.D. on 05/26/2024 at 11:27:09 AM PT Interpreting Station ID: [id number]
== END ==
LOC: MAMMO 09:59
PROVIDERS: PCP Family Medicine; Referring Provider Family Medicine; Visit Provider Family Medicine
DX: R92.8 Other abnormal and inconclusive findings on diagnostic imaging of breast (principal); R92.1 Mammographic calcification found on diagnostic imaging of breast; N63.12 Unspecified lump in the right breast, upper inner quadrant; Z80.3 Family history of malignant neoplasm of breast; R92.333 Mammographic heterogeneous density, bilateral breasts
CPT/HCPCS: 76642; 77066; G0279

== ENCOUNTER → 2024-05-26 13:41 | Outpatient (CLI) | payer MEDICARE, MEDICAID, SELFPAY ==
[2024-02-10 12:07] VITALS: BMI 19.8
--- NOTE | 2024-05-26 13:41 | DI.US.S_ITS ---
PROCEDURE: US EXTREMELY NONVASC UPPER RT INDICATIONS: Soft tissue mass middle finger R hand TECHNIQUE: Real-time scanning was performed of the right middle finger, with image documentation. COMPARISON: [facility], CR, XR FINGER RT MIN 2V, 05/19/2024, 11:00. FINDINGS: Corresponding to the palpable abnormality at the 3rd digit, there is an ovoid hypoechoic subcutaneous mass measuring 6 x 5 x 6 mm. Vascularity is present on power Doppler. Additional hypoechoic structure measuring 9 x 3 x 5 mm adjacent to a joint with focal vascularity. IMPRESSION: 1. Oval subcutaneous solid mass measuring up to 6 mm at the 3rd digit corresponds to the palpable abnormality. The imaging appearance is nonspecific, and differential considerations would include benign and malignant soft tissue masses. 2. Additional hypoechoic structure adjacent to the nearby joint could be related to the soft tissue mass versus secondary to synovial hypertrophy or other joint centered process. Consider MRI of the hand within without contrast material for further evaluation if indicated clinically. Approved by: Cornelius Chauhan M.D. on 05/26/2024 at 15:58
== END ==
PROVIDERS: PCP Family Medicine; Referring Provider Physician Assistant; Visit Provider Physician Assistant
DX: R22.31 Localized swelling, mass and lump, right upper limb (principal)
CPT/HCPCS: 76642; 76882

== ENCOUNTER → 2024-05-30 15:43 | Outpatient (CLI) | payer MEDICARE, MEDICAID, SELFPAY ==
[2024-02-10 12:07] VITALS: BMI 19.8
--- NOTE | 2024-05-30 15:45 | DI.MRI.S_ITS ---
PROCEDURE: MR HAND RT WO/W CON INDICATIONS: Abnormal US mass middle finger R hand TECHNIQUE: Noncontrast coronal T1 spin echo and T2 fast spin echo with fat saturation, axial proton density fast spin echo and T2 fast spin echo with fat saturation, axial T1 spin echo with fat saturation, sagittal T1 spin echo and STIR through the hand and fingers. Post-contrast axial, coronal, and sagittal T1 spin echo through the hand and fingers. COMPARISON: [facility], CR, XR FINGER RT MIN 2V, 05/19/2024, 11:00. [facility], US, US EXTREMELY NONVASC UPPER RT, 05/26/2024, 13:59. FINDINGS: Image quality: Excellent. Enhancement: Corresponding to the fiducial marker along the ulnar aspect of the index finger, there is a 0.6 x 0.4 x 0.5 cm T1 isointense (to skeletal muscle), T2 intermediate, enhancing round nodular mass contacting the lateral slip of the extensor digitorum tendon (3/8; 10/20; 6/20; 12/8) just proximal to the PIP joint. The enhancement continues along the course of the tendon toward the PIP joint (/). Bone: The marrow signal is within normal limits. There are no osseous erosions. There is no pathologic fracture or dislocation. Joint: There is severe 1st CMC, mild triscaphe, and moderate piso-hamate osteoarthritis (/23; 3/9). Muscle: Overall muscle bulk is preserved. Tendon: The visualized flexor and extensor tendons are within normal limits. Nerve: The radial and ulnar nerves are normal in signal and caliber at the wrist. Vessels: The dominant radial and ulnar flow voids are preserved. Other: There is no other acute abnormality. IMPRESSION: Subcentimeter enhancing mass along the ulnar aspect of the index finger near the PIP joint with adjacent synovial enhancement at the PIP joint. The differential diagnosis for this finding in conjunction with the ultrasound would include a myxoid tumor versus synovial sarcoma (typically in younger patients) versus rheumatoid nodule (although other findings of rheumatoid arthritis are absent). Surgical consultation for biopsy would be recommended along with testing for rheumatoid arthritis. Dictated by: Joshua Acosta M.D. on 06/01/2024 at 15:09 Approved by: Joshua Acosta M.D. on 06/01/2024 at 15:36
== END ==
LOC: MRI 15:44
PROVIDERS: PCP Family Medicine; Referring Provider Physician Assistant; Visit Provider Physician Assistant
DX: M79.89 Other specified soft tissue disorders (principal); R22.31 Localized swelling, mass and lump, right upper limb; M18.11 Unilateral primary osteoarthritis of first carpometacarpal joint, right hand; M19.031 Primary osteoarthritis, right wrist
CPT/HCPCS: 73220; A9579

== ENCOUNTER → 2024-06-03 12:24 | Outpatient (CLI) | payer MEDICARE, MEDICAID, SELFPAY ==
[2024-02-10 12:07] VITALS: BMI 19.8
[2024-06-03 12:49] LABS: Add Manual Diff / Slide Review NO; Basophils Absolute Auto 0 /uL (0-100); Basophils Percent Auto 0.3 % (0-2); Eosinophils Absolute Auto 200 /uL (0-450); Eosinophils Percent Auto 2.9 % (2-4); Hematocrit 41.8 % (36-46); Hemoglobin 13.9 g/dL (12.0-16.0); Lymphocytes Absolute Auto 1200 /uL (1100-4500); Lymphocytes Percent Auto 21.3 % (25-40); Mean Corpuscular HGB Conc 33.2 % (30-36); Mean Corpuscular Hemoglobin 27.4 PG (26-34); Mean Corpuscular Volume 82.5 fL (80-100); Monocytes Absolute Auto 500 /uL (0-900); Monocytes Percent Auto 9.8 % (3-14); Neutrophils Absolute Auto 3700 /uL (1500-7000); Neutrophils Percent Auto 65.7 % (50-75); Platelet Count 288 X10^3/uL (150-400); Red Blood Cell Count 5.06 X10^6/uL (4.0-5.2); Red Cell Distribution Width 14.8 % (11.6-14.8); White Blood Cell Count 5.6 X10^3/uL (4.5-11.0)
[2024-06-03 13:11] LABS: Alanine Aminotransferase 23 IU/L (<35); Albumin 4.8 g/dL (3.5-5.0); Albumin Globulin Ratio 1.9 (1.0-2.8); Alkaline Phosphatase 62 U/L (38-126); Aspartate Aminotransferase 31 IU/L (14-36); Bilirubin Total 0.8 mg/dL (0.2-1.3); Blood Urea Nitrogen 18 mg/dL (7-17); C-Reactive Protein Quant < 0.5 mg/dL (<1.0); Calcium 10.5 mg/dL (8.4-10.2); Carbon Dioxide 26 mmol/L (22-32); Chloride 104 mmol/L (98-107); Cholesterol 245 mg/dL (140-199); Estimated Glomerular Filt Rate > 60 mL/min (>60); Globulin 2.5 g/dL (1.7-4.1); Glucose 85 mg/dL (80-110); HEMOLYSIS < 15 (0-50); Potassium 4.6 mmol/L (3.4-5.1); Rheumatoid Factor < 8.6 IU/mL (<12.0); Sodium 137 mmol/L (137-145); Total Protein 7.3 g/dL (6.3-8.2); Triglycerides 87 mg/dL (35-150)
[2024-06-03 13:18] LABS: HDL Cholesterol 175 mg/dL (40-60); LDL Cholesterol Calculated 53 mg/dL (<100)
[2024-06-03 14:20] LABS: Erythrocyte Sedimentation Rate 5 MM/HR (0-20)
[2024-06-03 16:07] LABS: Vitamin D 25 Hydroxy (D3) 40.5 ng/mL (30.0-100.0)
[2024-06-05 04:11] LABS: Apolipoprotein B 65 mg/dL (<90)
[2024-06-05 20:36] LABS: CCP Antibodies IgG/IgA 9 units (0-19)
== END ==
PROVIDERS: PCP Family Medicine; Referring Provider Family Medicine; Visit Provider Family Medicine
DX: R22.31 Localized swelling, mass and lump, right upper limb (principal); R74.8 Abnormal levels of other serum enzymes; R73.9 Hyperglycemia, unspecified; M19.90 Unspecified osteoarthritis, unspecified site; M79.89 Other specified soft tissue disorders; F90.9 Attention-deficit hyperactivity disorder, unspecified type; F31.9 Bipolar disorder, unspecified; F32.A Depression, unspecified; D70.9 Neutropenia, unspecified
CPT/HCPCS: 36415; 80053; 80061; 82172; 82306; 85025; 85651; 86140; 86200; 86430

== ENCOUNTER 2024-07-31 07:57 | Day surgery (SDC) | payer MEDICARE, MEDICAID, SELFPAY ==
[2024-02-10 12:07] VITALS: BMI 19.8
[2024-07-28 14:18] VITALS: BMI 20.2
[2024-07-31] VITALS (8 sets, daily range): BP systolic 108–143; BP diastolic 66–88; PULSE 72–100; RESP 12–22; TEMP 36.6; O2SAT 94–100; BMI 19.2
--- NOTE | 2024-07-31 | PATH_ITS ---
[facility] Accession Number: [id number] No. of containers..01 Tissue . 01 Material submitted: . finger - RIGHT LONG FINGER MASS . 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 Negative for significant atypia or malignancy. MRV 08/05/2024 1422 Local . 01 Electronically signed: . Fer Duarte MD, Pathologist NPI- [id number] . 01 Gross description: . Received in formalin with two identifiers and right long finger mass, is a romano rubbery soft tissue fragment 0.9 x 0.7 x 0.6 cm. Inked blue and sectioned to reveal a romano, rubbery, homogenous cut surface. Submitted entirely in cassette A1. ([id number]) /MADDIE 08/01/2024 2323 Local . 01 Microscopic: . Microscopic examination reveals a lobulated lesion composed of uniform epithelioid mononuclear cells, macrophages, and giant cells without significant cytologic atypia or necrosis. Mitotic figures are present. . In summary, the histologic features support the diagnosis. . As part of ongoing quality facilitator, this case is also reviewed by Dr. Christina Ponce, who agrees with the interpretation. . 01 Pathologist provided ICD-10: R22.31, D48.19 . 01 CPT . 545016 Specimen Comment: A courtesy copy of this report has been sent to [facility] Performed at: [address] [address], [place], [place] [id number] MD Erick Schofield MD Phone: [phone]
--- NOTE | 2024-07-31 08:34 | PM.PREOP ---
Pre-operative Note Interval Note History & Physical reviewed/Exam performed by Physician: Yes Changes to H&P: No
[2024-07-31] MEDS: LACTATED RINGERS 1,000 ML 42 ML IV (08:41)
[2024-07-31] MEDS: CEFAZOLIN 2 GM/100 ML PREMIX 100 ML IV (08:55)
--- NOTE | 2024-07-31 09:15 | SUR.OPER ---
Supine on padded OR bed, head on pillow, Left arm secured on padded arm boards at <90 degrees abduction, Right arm on padded OR arm board and draped with sterile technique prior to incision, legs uncrossed, safety belt at thigh, tape over blanket over lower legs.
[2024-07-31] MEDS: BUPIVACAINE 0.25% (PF) VIAL 30 ML INJ (09:26)
[2024-07-31] MEDS: OXYCODONE IR 5 MG TABLET PO (10:03)
--- NOTE | 2024-07-31 10:08 | PM.OP.1 ---
Operative Date/Time/Diagnoses Date of procedure: 07/31/24 Time of procedure: 10:08 Pre-op diagnosis: Right Middle Finger Mass Post-op diagnosis: same Procedure & Clinicians Procedure: Right Middle Finger Mass Excision Same procedure as scheduled: Yes Surgeon: Chau Deleon Click Yes if Unassisted: Yes Anesthesia Type: General Operative Notes Findings: Solid mass of the right middle finger over P1 Closure Type: primary Estimated Blood Loss (mL): 3 Blood products transfused: none Tourniquet time (min): 26 Procedure in detail: Laterality: Right Preoperative diagnosis: Long finger mass Procedure performed: Right long finger mass Excision Postoperative diagnosis: Same Primary Surgeon: Chau Deleon MD Secondary Surgeon: None Anesthesia: General EBL: 3 ml Tourniquet: 22 minutes @ 250 mmHg Implants: None Indication For Surgery: Symptomatic mass despite non-operative treatments. The risks, benefits, and alternatives were discussed. Risks include pain, bleeding, infection, damage to nearby structures and cartilage, lack of symptom relief, need for further surgery, DVT, PE, stroke, and . Written consent was obtained. Operative Findings: Solid mass not associated with the joint or tendon. Procedure in Detail: The patient was met in the pre-operative hold area. Consent was verified and operative extremity was signed. The patient then met with anesthesia and was brought back to the operating room. The patient was placed supine on the operating table. Anesthetic was administered. The extremity was then prepped and draped in the usual sterile fashion. A timeout was performed per protocol. All were in agreement and we proceeded. The quality of anesthetic was tested with an adson forceps. A 3cm longitudinal incision was made directly over the mass. Scissor dissection was brought down through the subcutaneous tissues until the mass was identified. The mass was freed up from the subcutaneous tissues. The mass was traced down and it did not appear to be associated with either the joint or the tendon. The mass was eventually freed and removed and sent for pathology. The wound were then irrigated copiously with sterile saline. The skin was closed with 4-0 nylon. A sterile dressing was applied. Postoperative Plan: Same day surgery discharge Dressing to stay in place until follow-up 2 week follow up for suture removal. Home ROM. No manual labor 6 week follow up with planned release to full activity Chau Deleon MD Complications: none
[2024-07-31] MEDS: ACETAMINOPHEN IV 1,000 MG/100 ML VIAL 400 MG IV (10:17)
== END 2024-07-31 11:08 | disposition home or self-care (01) ==
PROVIDERS: PCP Family Medicine; Referring Provider Orthopaedic Surgery; Visit Provider Orthopaedic Surgery
PROC: (CPT 26115; principal; 2024-07-31 08:30)
DX: M65.841 Other synovitis and tenosynovitis, right hand (principal)
CPT/HCPCS: 26115; J0131; J0690; J1100; J2405; J2704; J3010

== ENCOUNTER → 2024-12-31 11:45 | Outpatient (CLI) | payer MEDICARE, MEDICAID, SELFPAY ==
[2024-07-31 08:54] VITALS: BMI 19.8
--- NOTE | 2024-12-31 11:46 | DI.RAD.S_ITS ---
PROCEDURE: XR SHOULDER RT MIN 2V INDICATIONS: chronic right shoulder pain TECHNIQUE: 3 views of the shoulder were acquired. COMPARISON: [facility], , SHOULDER MINIMUM 2 VIEW LEFT, 06/22/2017, 9:01. FINDINGS: Bones: No fractures or dislocations. No suspicious bony lesions. Visualized ribs appear intact. Mild cystic degenerative changes in the greater tuberosity region. Mild osteopenia. Soft tissues: No suspicious soft tissue calcifications. IMPRESSION: Mild degenerative changes, no focal osseous lesion seen. Dictated by: Tyree Carballo M.D. on 12/31/2024 at 18:52 Approved by: Tyree Carballo M.D. on 12/31/2024 at 18:54
== END ==
PROVIDERS: PCP Family Medicine; Referring Provider Family Medicine; Visit Provider Family Medicine
DX: M25.511 Pain in right shoulder (principal)
CPT/HCPCS: 73030

== ENCOUNTER 2025-01-23 09:44 | Emergency (ER) | payer MEDICARE, MEDICAID, SELFPAY ==
[2024-07-31 08:54] VITALS: BMI 19.8
[2025-01-23 09:47] VITALS: BP 207/110; PULSE 111; RESP 14; TEMP 36.2; O2SAT 98; BMI 19.7
--- NOTE | 2025-01-23 10:17 | ED.EXTPRO ---
HPI - Extremity Problem General Chief complaint: Extremity Problem,Nontraumatic Stated complaint: RT big toe maybe infected Time Seen by Provider: 01/23/25 09:55 Source: patient Mode of arrival: Ambulatory History of Present Illness HPI Narrative: 69 years old female came today complaining of infection of the right great toe for the last 1 week and last night the pain got worse so she decided to come here. She denied any fever, chills, nausea vomiting, injury to her right foot, discharge. She noticed swelling and redness of her right great toe. She denied any petechiae or recently or history of MRSA. Related Data Home Medications ?Medication ?Instructions ?Recorded ?Confirmed fluticasone propionate 110 1 puff inhalation BID PRN asthma 01/28/24 12/31/24 mcg/actuation HFA aerosol inhaler Previous Rx's ?Medication ?Instructions ?Recorded diclofenac sodium 1 % topical gel 4 g topical QID PRN pain (scale 03/20/22 (Arthritis Pain (diclofenac)) score 1-3) #100 grams triamcinolone acetonide 0.1 % 1 applic topical BID PRN rash #30 07/17/22 topical cream grams albuterol sulfate 90 mcg/actuation 2 puff inhalation Q6H PRN for 03/05/23 aerosol inhaler wheezing #8.5 grams acetaminophen 325 mg tablet 650 mg (2 x 325 mg) PO Q6H #60 tabs 02/11/24 trazodone 50 mg tablet 50 mg PO BEDTIME PRN sleep #60 tabs 09/25/24 dextroamphetamine-amphetamine 20 20 mg PO BID #60 tabs 10/09/24 mg tablet (Adderall) dextroamphetamine-amphetamine 20 20 mg PO BID #60 tabs 10/09/24 mg tablet (Adderall) lamotrigine 100 mg tablet 150 mg (1.5 x 100 mg) PO DAILY 10/27/24 #135 tabs estradiol 1 mg tablet 1 mg PO DAILY #90 tabs 10/30/24 sumatriptan succinate 100 mg tablet 100 mg PO Q2-4H PRN migraine 11/20/24 headache #14 tabs hydrocodone 5 mg-acetaminophen 325 1 tab PO BID PRN pain #20 tabs 12/31/24 mg tablet meloxicam 15 mg tablet 15 mg PO DAILY #60 tabs 12/31/24 omeprazole 20 mg capsule,delayed 20 mg PO DAILY #90 caps 01/11/25 release dextroamphetamine-amphetamine 20 20 mg PO BID #60 tabs 01/12/25 mg tablet (Adderall) cephalexin 500 mg capsule 500 mg PO QID #20 caps 01/23/25 Allergies Allergy/AdvReac Type Severity Reaction Status Date / Time No Known Drug Allergies Allergy Verified 01/23/25 09:47 Review of Systems Review of Systems Narrative: Positive for redness with my swelling and pain right great toe. Negative for fever, chills, nausea vomiting, discharge from the right great toe, injury. Patient History Medical History (Updated 01/23/25 @ 10:16 by Yong Sarah MD) Giant cell tumor of tendon sheath Anesthesia complication Low back pain potentially associated with radiculopathy Neutropenia Elevated liver enzymes Plantar warts (~2017) Osteoarthritis (~2007) Depression (~2000) Migraines (~1971) Osteoporosis (~2007) Carpal tunnel syndrome Chicken pox (~1960) Ovarian cyst (~2017) Cyst (~2008) Atrophic vaginitis Hip dysplasia (~1956) DJD (degenerative joint disease) Cervical stenosis (uterine cervix) Postmenopausal bleeding Asthma ADHD (~1962) GERD (gastroesophageal reflux disease) Bipolar 1 disorder (~2000) Surgical History (Updated 07/28/24 @ 14:23 by Malathi Herbert RN) History of endometrial biopsy History of total left knee replacement (02/10/24) History of hip replacement (~2018) History of arthroscopic knee surgery (~2003) History of appendectomy (~1977) History of hip surgery (~1958) History of bilateral salpingo-oophorectomy (BSO) (05/05/18) S/P laparoscopic supracervical hysterectomy (05/05/18) Hx of dilation and curettage Surgery, elective Hx of repair of left rotator cuff Family History Father Dementia Mother Hypertension History of heart disease Grandmother Cancer Grandfather History of heart disease Family/Other Transgender Social History household members: family Smoking Status: Unknown if ever smoked alcohol intake: current substance use type: does not use Smoking Status: Unknown if ever smoked alcohol intake frequency: a few times a week Exam Narrative Exam Narrative: GENERAL: Alert, awake. No acute distress. HEAD: Atraumatic. Normocephalic. NECK: Trachea midline. Non tender CARDIOVASCULAR: Regular rate and rhythm without murmurs, gallops, or rubs. RESPIRATORY: Clear to auscultation. Breath sounds equal bilaterally. No wheezes, rales, or rhonchi. GASTROINTESTINAL: Abdomen soft, non-tender, nondistended. EXTREMITIES: Mild erythematous swelling of the medial aspect of the nail for right great toe without fluctuation or discharge but mild tenderness on palpation. BACK: Nontender without deformity or crepitance. No flank tenderness. NEURO: AOx3. SKIN: No rash or erythema of visible areas Initial Vital Signs Initial Vital Signs: Vital Signs Temperature 97.1 F L 01/23/25 09:47 Pulse Rate 111 H 01/23/25 09:47 Respiratory Rate 14 01/23/25 09:47 Blood Pressure 207/110 H 01/23/25 09:47 Pulse Oximetry 98 01/23/25 09:47 Oxygen Delivery Method Room Air 01/23/25 09:47 Course Vital Signs Vital signs: Vital Signs - 8 hr 01/23/25 09:47 Temperature 97.1 F L Pulse Rate 111 H Respiratory Rate 14 Blood Pressure 207/110 H Pulse Oximetry 98 Oxygen Delivery Method Room Air MDM - Extremity (Nontraumatic) MDM Narrative Medical decision making narrative: 69 years old female came today complaining of infection of the right great toe for the last 1 week and last night the pain got worse so she decided to come here. She denied any fever, chills, nausea vomiting, injury to her right foot, discharge. She noticed swelling and redness of her right great toe. She denied any petechiae or recently or history of MRSA. On exam showed Mild erythematous swelling of the medial aspect of the nail for right great toe without fluctuation or discharge but mild tenderness on palpation. No deformity or ecchymosis. I actually to take a picture of her right great toe to show to her primary care doctor for follow-up. Her CV exam, lung exam, abdominal exam were normal. She was sent home with Keflex 4 times a day for 5 days. She will continue with Tylenol alternating ibuprofen as needed. Discharge Plan Departure Patient Disposition: Home Clinical Impression: Paronychia of toenail of right foot Instructions: DI for Paronychia Activity Restrictions/Additional Instructions: Please come back to the emergency room if any worsening symptoms including but not limited to fever, chills, ascending the redness, nausea vomiting. Prescriptions: New cephalexin 500 mg capsule 500 mg PO QID Qty: 20 0RF No Action albuterol sulfate 90 mcg/actuation HFA aerosol inhaler 2 puff inhalation Q6H PRN (Reason: for wheezing) Qty: 8.5 2RF trazodone 50 mg tablet 50 mg PO BEDTIME PRN (Reason: sleep) Qty: 60 3RF Rx Instructions: Take one tablet at bedtime as needed lamotrigine 100 mg tablet 150 mg PO DAILY Qty: 135 3RF estradiol 1 mg tablet 1 mg PO DAILY Qty: 90 2RF sumatriptan succinate 100 mg tablet 100 mg PO Q2-4H PRN (Reason: migraine headache) Qty: 14 3RF omeprazole 20 mg capsule,delayed release(DR/EC) 20 mg PO DAILY Qty: 90 3RF dextroamphetamine-amphetamine [Adderall] 20 mg tablet 20 mg PO BID Qty: 60 0RF diclofenac sodium [Arthritis Pain (diclofenac)] 1 % gel 4 g topical QID PRN (Reason: pain (scale score 1-3)) Qty: 100 3RF Rx Instructions: apply to single knee, ankle, foot; for foot includes sole/toes/top of foot triamcinolone acetonide 0.1 % cream 1 applic topical BID PRN (Reason: rash) Qty: 30 11RF Rx Instructions: apply to affected areas for a 2 weeks if needed then stop for 1-2 weeks. can repeat as needed. dextroamphetamine-amphetamine [Adderall] 20 mg tablet 20 mg PO BID Qty: 60 0RF dextroamphetamine-amphetamine [Adderall] 20 mg tablet 20 mg PO BID Qty: 60 0RF hydrocodone-acetaminophen 5-325 mg tablet 1 tab PO BID PRN (Reason: pain) Qty: 20 0RF meloxicam 15 mg tablet 15 mg PO DAILY Qty: 60 1RF fluticasone propionate 110 mcg/actuation Hfa Aerosol Inhaler 1 puff INHALATION BID PRN (Reason: asthma) acetaminophen 325 mg Tablet 650 mg PO Q6H Qty: 60 0RF Referrals: Leonidas Solorzano MD [Primary Care Provider, Family Practice] Stand Alone Forms: Patient Portal/API
--- NOTE | 2025-01-23 10:21 | PC.NURSE ---
Pt has some erythema on lateral side right great toe.
== END 2025-01-23 10:20 | disposition home or self-care (01) ==
PROVIDERS: Emergency Provider Emergency Medicine; PCP Family Medicine
DX: L03.031 Cellulitis of right toe (principal)
CPT/HCPCS: 99281

== ENCOUNTER 2025-02-14 11:31 | Emergency (ER) | payer MEDICARE, MEDICAID, SELFPAY ==
[2024-07-31 08:54] VITALS: BMI 19.8
[2025-02-14 11:38] VITALS: BP 166/91; PULSE 90; RESP 17; TEMP 36.5; O2SAT 96; BMI 19.7
--- NOTE | 2025-02-14 14:00 | ED.SKABFB ---
HPI - Skin/Abscess/Foreign Bdy General Chief complaint: Skin/Abscess/Foreign Body Stated complaint: big toe R foot, discolored, red Time Seen by Provider: 02/14/25 13:53 Source: patient Mode of arrival: Ambulatory History of Present Illness HPI narrative: Patient 69-year-old female history of bipolar and ADHD presenting today with right toe pain. She was seen evaluated here 01/23/2025 for the same thought to have a paronychia and was started on Keflex. She says over last 4 days she is having more pain it is not really anymore red no fevers. Related Data Home Medications ?Medication ?Instructions ?Recorded ?Confirmed fluticasone propionate 110 1 puff inhalation BID PRN asthma 01/28/24 12/31/24 mcg/actuation HFA aerosol inhaler Previous Rx's ?Medication ?Instructions ?Recorded diclofenac sodium 1 % topical gel 4 g topical QID PRN pain (scale 03/20/22 (Arthritis Pain (diclofenac)) score 1-3) #100 grams triamcinolone acetonide 0.1 % 1 applic topical BID PRN rash #30 07/17/22 topical cream grams albuterol sulfate 90 mcg/actuation 2 puff inhalation Q6H PRN for 03/05/23 aerosol inhaler wheezing #8.5 grams acetaminophen 325 mg tablet 650 mg (2 x 325 mg) PO Q6H #60 tabs 02/11/24 trazodone 50 mg tablet 50 mg PO BEDTIME PRN sleep #60 tabs 09/25/24 dextroamphetamine-amphetamine 20 20 mg PO BID #60 tabs 10/09/24 mg tablet (Adderall) lamotrigine 100 mg tablet 150 mg (1.5 x 100 mg) PO DAILY 10/27/24 #135 tabs estradiol 1 mg tablet 1 mg PO DAILY #90 tabs 10/30/24 sumatriptan succinate 100 mg tablet 100 mg PO Q2-4H PRN migraine 11/20/24 headache #14 tabs hydrocodone 5 mg-acetaminophen 325 1 tab PO BID PRN pain #20 tabs 12/31/24 mg tablet meloxicam 15 mg tablet 15 mg PO DAILY #60 tabs 12/31/24 omeprazole 20 mg capsule,delayed 20 mg PO DAILY #90 caps 01/11/25 release dextroamphetamine-amphetamine 20 20 mg PO BID #60 tabs 01/12/25 mg tablet (Adderall) cephalexin 500 mg capsule 500 mg PO QID #20 caps 01/23/25 dextroamphetamine-amphetamine 20 20 mg PO BID #60 tabs 02/11/25 mg tablet (Adderall) Allergies Allergy/AdvReac Type Severity Reaction Status Date / Time No Known Drug Allergies Allergy Verified 02/14/25 11:38 Patient History Medical History Giant cell tumor of tendon sheath Anesthesia complication Low back pain potentially associated with radiculopathy Neutropenia Elevated liver enzymes Plantar warts (~2017) Osteoarthritis (~2007) Depression (~2000) Migraines (~1971) Osteoporosis (~2007) Carpal tunnel syndrome Chicken pox (~1960) Ovarian cyst (~2017) Cyst (~2008) Atrophic vaginitis Hip dysplasia (~1956) DJD (degenerative joint disease) Cervical stenosis (uterine cervix) Postmenopausal bleeding Asthma ADHD (~1962) GERD (gastroesophageal reflux disease) Bipolar 1 disorder (~2000) Surgical History History of endometrial biopsy History of total left knee replacement (02/10/24) History of hip replacement (~2018) History of arthroscopic knee surgery (~2003) History of appendectomy (~1977) History of hip surgery (~1958) History of bilateral salpingo-oophorectomy (BSO) (05/05/18) S/P laparoscopic supracervical hysterectomy (05/05/18) Hx of dilation and curettage Surgery, elective Hx of repair of left rotator cuff Family History Father Dementia Mother Hypertension History of heart disease Grandmother Cancer Grandfather History of heart disease Family/Other Transgender Social History household members: family alcohol intake: current substance use type: does not use alcohol intake frequency: a few times a week Exam Initial Vital Signs Initial Vital Signs: Vital Signs Temperature 97.7 F 02/14/25 11:38 Pulse Rate 90 02/14/25 11:38 Respiratory Rate 17 02/14/25 11:38 Blood Pressure 166/91 H 02/14/25 11:38 Pulse Oximetry 96 02/14/25 11:38 Oxygen Delivery Method Room Air 02/14/25 11:38 GENERAL: Well-appearing, well-nourished and in no acute distress. CARDIOVASCULAR: peripheral pulses in tact, cap refill <2 sec RESPIRATORY: No respiratory distress, speaks in full sentences without difficulty EXTREMITIES: Normal range of motion, no clubbing or edema. Neurovascularly intact NEUROLOGICAL: Cranial nerves II through XII grossly intact. Normal gait and speech. SKIN: Right big toe some skin desquamation but no significant erythema swelling no abscess no significant damage to nail Course Vital Signs Vital signs: Vital Signs - 8 hr 02/14/25 11:38 Temperature 97.7 F Pulse Rate 90 Respiratory Rate 17 Blood Pressure 166/91 H Pulse Oximetry 96 Oxygen Delivery Method Room Air MDM - Skin/Abscess/Foreign Bdy MDM Narrative Medical decision making narrative: Toe overall does not appear infected there is no cellulitis there is no swelling there is minimal tenderness. At this time recommend supportive care warm soaks only no need for antibiotics. At this time updated her on what to do at may try some Neosporin as well Discharge Plan Departure Patient Disposition: Home Clinical Impression: Paronychia of great toe of right foot Instructions: Paronychia Activity Restrictions/Additional Instructions: *You have been diagnosed with paronychia *What to do: At this time I would do warm soaks and soap and water apply Neosporin or antibiotic ointment 1-2 times daily. *Continue to take medications as directed *Follow up with your primary care provider in 2-3 days or call [phone] *Return to ER if you should have increasing redness swelling pain fever or any new, worsening or concerning symptoms Prescriptions: No Action albuterol sulfate 90 mcg/actuation HFA aerosol inhaler 2 puff inhalation Q6H PRN (Reason: for wheezing) Qty: 8.5 2RF trazodone 50 mg tablet 50 mg PO BEDTIME PRN (Reason: sleep) Qty: 60 3RF Rx Instructions: Take one tablet at bedtime as needed lamotrigine 100 mg tablet 150 mg PO DAILY Qty: 135 3RF estradiol 1 mg tablet 1 mg PO DAILY Qty: 90 2RF sumatriptan succinate 100 mg tablet 100 mg PO Q2-4H PRN (Reason: migraine headache) Qty: 14 3RF omeprazole 20 mg capsule,delayed release(DR/EC) 20 mg PO DAILY Qty: 90 3RF dextroamphetamine-amphetamine [Adderall] 20 mg tablet 20 mg PO BID Qty: 60 0RF dextroamphetamine-amphetamine [Adderall] 20 mg tablet 20 mg PO BID Qty: 60 0RF diclofenac sodium [Arthritis Pain (diclofenac)] 1 % gel 4 g topical QID PRN (Reason: pain (scale score 1-3)) Qty: 100 3RF Rx Instructions: apply to single knee, ankle, foot; for foot includes sole/toes/top of foot triamcinolone acetonide 0.1 % cream 1 applic topical BID PRN (Reason: rash) Qty: 30 11RF Rx Instructions: apply to affected areas for a 2 weeks if needed then stop for 1-2 weeks. can repeat as needed. dextroamphetamine-amphetamine [Adderall] 20 mg tablet 20 mg PO BID Qty: 60 0RF hydrocodone-acetaminophen 5-325 mg tablet 1 tab PO BID PRN (Reason: pain) Qty: 20 0RF meloxicam 15 mg tablet 15 mg PO DAILY Qty: 60 1RF fluticasone propionate 110 mcg/actuation Hfa Aerosol Inhaler 1 puff INHALATION BID PRN (Reason: asthma) acetaminophen 325 mg Tablet 650 mg PO Q6H Qty: 60 0RF cephalexin 500 mg capsule 500 mg PO QID Qty: 20 0RF Referrals: Leonidas Solorzano MD [Primary Care Provider, Family Practice] Stand Alone Forms: Patient Portal/API
== END 2025-02-14 14:12 | disposition home or self-care (01) ==
PROVIDERS: Emergency Provider Emergency Medicine; Family Provider Family Medicine; PCP Family Medicine
DX: L03.031 Cellulitis of right toe (principal)
CPT/HCPCS: 99281